=== PATIENT | male | born 1960 | race Caucasian/White ===

== ENCOUNTER 2021-01-06 02:23 | Outpatient (CLI) | payer OTHER, MEDICAID, SELFPAY ==
--- NOTE | 2021-01-06 | DI.US_ITS ---
EXAM: US ABDOMEN CLINICAL HISTORY: ABD PAIN,R10.9 TECHNIQUE: Ultrasound abdomen performed using standard protocol. COMPARISON: No exams were available for comparison FINDINGS: ABDOMINAL AORTA AND IVC: Visualized portions normal caliber. PANCREAS: Normal where visualized. LIVER: Normal. Hepatopedal flow in the Portal Vein. The liver measures 15.9 cm in length. GALLBLADDER: No evidence of cholelithiasis. No evidence of wall thickening. No pericholecystic fluid identified. BILIARY SYSTEM: Common bile duct measures < 7 mm. No intrahepatic biliary ductal dilation. ARZOLA'S SIGN: Negative. KIDNEYS: Kidneys are symmetric in size. No evidence of renal calculi. No evidence of hydronephrosis. There is a 1.7 x 1.2 x 1.4 cm simple cyst in the inferior pole of the left kidney. No further workup is recommended. SPLEEN: Not enlarged. ASCITES: None seen. IMPRESSION: No acute abnormality. DATA REPOSITORY:
== END 2021-01-06 02:24 ==
LOC: DI 02:23
PROVIDERS: PCP Internal Medicine; Visit Provider Internal Medicine
DX: R10.9 Unspecified abdominal pain (principal)
CPT/HCPCS: 76700

== ENCOUNTER 2021-02-08 13:24 | Outpatient (CLI) | payer OTHER, MEDICAID, SELFPAY ==
--- NOTE | 2021-02-08 13:00 | DI.NM_ITS ---
EXAM: NM HEPATOBILIARY CCK GRP CLINICAL HISTORY: NAUSEA, VOMITING, R11.2. TECHNIQUE: Injected dose: 4.9 mCi Tc-99 mebrofenin Initial dynamic images: 60 minutes Post-Gallbladder fillin.2 mcg CCK infusion as according to protocol. Addition images: According to protocol. COMPARISON: NM MPI RESTING AND STRESS from 07/04/2015 FINDINGS: Normal hepatic transit time. Prompt excretion into the small bowel. Prompt excretion into the gallbladder. The gallbladder ejection fraction was calculated at 79 %. (N ormal greater than 40 %). IMPRESSION: 1. Normal CCK HIDA scan. [facility] guidelines: Gallbladder visualization should be present by 3 hours. Delayed yzegeac-er-mmbyk gonzalez sit beyond 60 min raises the suspicion for partial common bile duct (CBD) obstruction. Gallbladder ejection fraction <35% has a good correlation with acalculous disease (i.e., chronic acal culous cholecystitis, cystic duct syndrome, sphincter of Oddi disease).
== END 2021-02-08 13:44 ==
PROVIDERS: PCP Internal Medicine; Visit Provider Surgery
DX: R11.2 Nausea with vomiting, unspecified (principal)
CPT/HCPCS: 78227

== ENCOUNTER 2021-06-06 20:01 | Emergency (ER) | payer OTHER, MEDICAID, SELFPAY ==
--- NOTE | 2021-06-06 20:00 | RT.EKG_ITS ---
APPROVED REPORT Exam: Resting ECG Reason for Exam: chest pain Patient Location: E HR:75 bpm ECG Measurements Heart Rate 75 AXIS NE 193 P 73 QRSd 100 QRS 100 QT 371 T 36 QTc 415 Conclusion Sinus rhythm...normal P axis, V-rate 60- 99 Probable left atrial enlargement...P >50mS, <-0.10mV V1 Right axis deviation...QRS axis ( 22,821)
[2021-06-06 20:05] VITALS: BP 153/93; PULSE 79; RESP 23; TEMP 36.5; O2SAT 97
[2021-06-06 20:10] VITALS: RESP 16
--- NOTE | 2021-06-06 20:37 | DI.CT_ITS ---
Exam(s) CT CHEST PE CTA EXAM: CT CHEST PE CTA CLINICAL HISTORY: chest pain rt, cough. TECHNIQUE: Imaging Protocol: Axial CT angiography was performed with multi-slice acquisition and mu lti-planar and/or 3D reconstructions. CONTRAST MATERIAL: Intravenous: Omnipaque 350 Contrast volume:100 mL COMPARISON: CT ABD PELVIS WO CONTRAST from 12/13/[address] ABD/PELVIS W/ CONTRAST from 09/26/2020 FINDINGS: Tracheobronchial tree: Patent where visualized. Pulmonary parenchyma: No consolidation or dominant measurable mass. Mild paraseptal emphysematous jean carlos nges are present. There are multiple calcified granulomas scattered throughout both lungs. Pulmonary Arteries: No evidence of filling defect to suggest pulmonary emboli. Mediastinum and Romelia: Mildly enlarged lymph nodes are seen in the mediastinum. Visualized thyroid gland: Unremarkable. Pleura: No effusion or pneumothorax. Heart: The heart is not dilated. Coronary artery calcifications are present. No pericardial effusion . Aorta: Thoracic aorta non-dilated. Mild atherosclerosis. No evidence of dissection. Upper abdomen: Unremarkable. Soft tissues: Unremarkable. Bones: Normal.Sternal wires are in place. IMPRESSION: No evidence of pulmonary embolism, thoracic aortic dissection or aneurysm. RADIATION DOSE DELIVERED: 450.37mGy.cm Total DLP DATA REPOSITORY: All CT scans at this facility are submitted to the National Radiology Data Registry (NRDR) Dose Index Registry (DIR) with the [employer] (ACR). RADIATION OPTIMIZATION: All CT scans at this facility use at least one of these dose optimization te chniques: automated exposure control; mA and/or kV adjustment per patient size (includes targeted exa ms where dose is matched to clinical indication); or iterative reconstruction.
[2021-06-06] MEDS: FAMOTIDINE 20 MG/50 ML BAG 200 MG IVPB (20:47)
[2021-06-06 20:50] LABS: Abs Immature Grans 0.04 10^3/uL (0.0-0.06); Absolute Basophil Count 0.12 10^3/uL (0.0-0.2); Absolute Eosinophil Count 1.54 10^3/uL (0.0-0.7); Absolute Lymphocyte Count 3.34 10^3/uL (1.2-3.4); Absolute Monocyte Count 0.85 10^3/uL (0.1-0.8); Basophils % 1.1; Eosinophils % 13.6; HCT 50.4 % (40.0-50.0); HGB 17.2 g/dL (13.5-17.5); Immature Grans % 0.4; Lymphocytes % 29.6; MCH 32.5 pg (27.0-33.0); MCHC 34.1 % (32.0-36.0); MCV 95.1 fL (80-95); MPV 8.8 fL (8.0-11.0); Monocytes % 7.5; Neutrophils % 47.8; Nucleated RBC 0 %; Platelet Count 335 10^3/uL (130-400); RDW 12.6 % (11.8-14.1); RDW-SD 44.1 fL
[2021-06-06 21:00] VITALS: BP 132/85; PULSE 72; RESP 26; O2SAT 92
[2021-06-06 21:03] LABS: ALT 28 U/L (16-63); AST 14 U/L (15-37); Albumin 3.7 g/dL (3.4-5.0); Alkaline Phosphatase 84 U/L (46-116); Anion Gap 6.5 mmol/L (3-11); BUN 11 mg/dL (7-18); Bilirubin, Total 0.9 mg/dL (0.2-1.0); CO2 32.5 mmol/L (21.0-32.0); Calcium 10.1 mg/dL (8.5-10.1); Chloride 105 mmol/L (98-107); Glucose 124 mg/dL (74-106); Magnesium 1.7 mg/dL (1.8-2.4); Potassium 3.9 mmol/L (3.5-5.1); Sodium 144 mmol/L (136-145); Total Protein 6.8 g/dL (6.4-8.2); Troponin I < 0.05 ng/mL (<0.06)
--- NOTE | 2021-06-06 21:07 | ED.GENADUL_ITS ---
Discharge Plan Disposition Patient Disposition: HOME Condition: Stable Discharge Details Clinical Impression: Acid reflux, Cough, Chest pain Primary Care Provider: Mary Linton ED Provider: Nash Stoddard Home Meds and New Rx's Prescriptions: New albuterol sulfate 90 mcg/actuation HFA aerosol inhaler 2 puff inhalation Q6H PRN (Reason: shortness of breath or wheezing) Qty: 8.5 RF: 1 famotidine [Pepcid] 20 mg tablet 20 mg PO BID Qty: 60 RF: 1 Continued nitroglycerin 0.4 MG tablet, sublingual 0.4 mg Sublingual PRN Qty: 1 RF: 2 (DME) lancets 1 EACH misc 1 ea Miscellaneous BID Qty: 100 RF: 3 (DME) blood sugar diagnostic [OneTouch Ultra Test] 1 EACH strip 1 ea Miscellaneous BID Qty: 100 RF: 0 atorvastatin 80 MG tablet 80 mg PO DAILY Qty: 90 RF: 3 aspirin 81 MG tablet,delayed release (DR/EC) 81 mg PO DAILY Qty: 90 RF: 3 metoprolol tartrate 25 MG tablet 25 mg PO DAILY Qty: 90 RF: 3 glimepiride 4 MG tablet 4 mg PO DAILY Qty: 90 RF: 0 Levemir FlexTouch U-100 Insuln 100 unit/mL (3 mL) insulin pen 28 unit SUBCUT BID RF: 0 Ozempic 0.25 mg or 0.5 mg(2 mg/1.5 mL) pen injector 0.5 mg SUBCUT QWEEK RF: 0 Discontinued ranitidine HCl 150 MG tablet 150 mg PO BID Qty: 180 RF: 3 metformin 1,000 MG tablet 500 mg PO DAILY RF: 0 Discharge Instructions Instructions: Chest Pain (ED), How to Stop Smoking (ED), GERD (Gastroesophageal Reflux Disease) (ED), Wheezing (ED) Additional Instructions: You are being started on a new antiacid called Pepcid. Please take as prescribed. Use albuterol inhaler as prescribed for wheezing or shortness of breath. Please follow-up with your primary care physician. Call tomorrow. Diagnostic testing today including EKG and cardiac enzymes did NOT reveal that you are having a heart attack tonight but further outpatient diagnostic testing may be necessary including stress test. Discuss this with your primary care doctor or system support developer tomorrow. Please followup with a global cmo or general surgery. Additional outpatient diagnostic testing may be necessary for treatment of chronic reflux disease. Please follow-up with pulmonology if cough persists more than this week and despite albuterol use. You need to stop smoking. Talk to your primary care physician about therapies that may help with smoking cessation. Return to the ER immediately for any worsening or new concerning symptoms. Referrals: [facility] [Provider Group] Mary Linton MD [Primary Care Provider] - Medical Decision Making 2112??61-year-old male most medical problems including history of coronary artery disease status post CABG and stenting, GERD, hiatal hernia, tobacco use disorder, here with right-sided chest pain over the past 1 week, associated cough with some what sounds like choking episode with concern for possible aspiration, also with recent right lower extremity edema. Patient was seen at outside hospital on multiple visits this past week. Will attempt obtain outside hospital records. Patient apparently had chest x-ray that was nondiagnostic. Plan to get CT of the chest to assess for aspiration pneumonia versus pneumonitis versus pulmonary embolism. Considered ACS but presentation is not consistent with this. A screening ECG was reviewed interpreted by me: Sinus rhythm 75 bpm, probable left atrial enlargement, right axis deviation, no STEMI, please see report. Initial troponin negative. Will plan on checking a delta troponin. I suspect reflux esaphagitis and acid reflux is contributing to presentation. Will give pepcid IV. 2253 --CT of the chest was reviewed and interpreted by radiology:FINDINGS: Pulmonary arteries: Normal. No pulmonary emboli. Aorta: Mild atherosclerotic change present in the vasculature. Lungs: Unremarkable. No consolidation. No masses. Pleural spaces: Unremarkable. No pneumothorax. No pleural effusion. Heart: Unremarkable. No cardiomegaly. No pericardial effusion. Lymph nodes: There is mild mediastinal adenopathy. Bones/joints: Status post median sternotomy. Soft tissues: Scattered bilateral calcified lung granulomata noted. IMPRESSION: No evidence for pulmonary embolus. Patient was given albuterol neb and reassessed and noted improved symptoms. He notes that he is currently out of his albuterol inhaler treatment will provide inhaler and spacer today. I obtained and reviewed outside hospital medical records from [facility] recent ED visit there he was seen for right leg swelling, he had negative D- dimer and was low risk by Wells criteria did not have further diagnostic imaging. He was also seen on 06/02/21 for cough and there is note that acid reflux may be contributing to his cough. He was trialed on pantoprazole which patient stated resulted in foul-smelling belching and he discontinued. 1200 -- Delta trop neg. I do believe reflux is contributing to his symptoms. I will prescribe Pepcid and have him follow-up with gastroenterology or general surgery. I will also refer him to pulmonology given chronic smoking and now persistent cough with con cern for potential cough variant asthma. All results were discussed with the patient. Disposition decision was made weighing the risks and benefits of hospitalization versus outpatient treatment, the risk for further decompensation, and the patient's wishes. The patient was stable and requested discharge. Prior to discharge, my usual and customary return precautions were reviewed with the patient - this included follow-up instructions and reason to return to the emergency department if condition worsens, does not improve as expected, or other new concerns arise. Medical Records Medical records reviewed: Yes I reviewed the patient's medical records. Lab Data Lab results reviewed: Yes I reviewed the patient's lab results. Labs: Laboratory Tests Range/Units 06/06/21 06/06/21 06/06/21 20:15 20:15 23:37 WBC (4.4-10.8) 10^3/uL 11.30 H RBC (4.36-5.78) 10^6/uL 5.30 Hgb (13.5-17.5) g/dL 17.2 Hct (40.0-50.0) % 50.4 H MCV (80-95) fL 95.1 H MCH (27.0-33.0) pg 32.5 MCHC (32.0-36.0) % 34.1 RDW (11.8-14.1) % 12.6 Plt Count (130-400) 10^3/uL 335 MPV (8.0-11.0) fL 8.8 Immature Gran % 0.4 Neutrophils % 47.8 Lymphocytes % 29.6 Monocytes % 7.5 Eosinophils % 13.6 Basophils % 1.1 Nucleated RBC % % 0 Absolute Neutrophils (1.2-6.7) 10^3/uL 5.40 Absolute Lymphocytes (1.2-3.4) 10^3/uL 3.34 Absolute Monocytes (0.1-0.8) 10^3/uL 0.85 H Absolute Eosinophils (0.0-0.7) 10^3/uL 1.54 H Absolute Basophils (0.0-0.2) 10^3/uL 0.12 Sodium (136-145) mmol/L 144 Potassium (3.5-5.1) mmol/L 3.9 Chloride (98-107) mmol/L 105 Carbon Dioxide (21.0-32.0) mmol/L 32.5 H Anion Gap (3-11) mmol/L 6.5 BUN (7-18) mg/dL 11 Creatinine (0.70-1.30) mg/dL 1.0 Estimated GFR/1.73 m2 (mL/min/1.73m2) >= 60.00 Glucose (74-106) mg/dL 124 H Calcium (8.5-10.1) mg/dL 10.1 Magnesium (1.8-2.4) mg/dL 1.7 L Total Bilirubin (0.2-1.0) mg/dL 0.9 AST (15-37) U/L 14 L ALT (16-63) U/L 28 Alkaline Phosphatase (46-116) U/L 84 Troponin I (<0.06) ng/mL < 0.05 < 0.05 Total Protein (6.4-8.2) g/dL 6.8 Albumin (3.4-5.0) g/dL 3.7 HPI General Mode of arrival: ambulatory . Date/Time Provider Initiated Documentation: 06/06/21 20:09 . Limitations to Documentation: no limitations . Information obtained by: patient . HPI Narrative: 61-year-old male with multiple medical problems including history of diabetes, hyperlipidemia, tobacco use disorder, GERD, coronary artery disease status post CABG and subsequent stent, presents with chief complaint of chest pain. Patient notes right-sided pleuritic chest pain over the past 1 week. Pain is intermittent and last approximately 45-minute, he experiences about 4-5 episodes daily. Pain is described as sharp. Pain worse with coughing episodes. He notes he has been coughing fairly persistently over the past 1 week. He notes some reflux and choking episodes. He does have a history of hiatal hernia. He has been seen multiple times at [facility] emergency department over the past week. He apparently had diagnostics including a chest x-ray that was unremarkable. Patient denies associated fever. He has had Covid immunization and was tested negative at [facility] this week. Related Data Home Medications Medication Instructions Recorded Confirmed nitroglycerin 0.4 mg SUBLINGUAL PRN #1 bottle 01/23/17 06/06/21 lancets #100 ea 03/05/17 blood sugar diagnostic [OneTouch #100 strip 07/02/17 Ultra Test] aspirin 81 mg PO DAILY #90 tab 09/03/17 06/06/21 atorvastatin 80 mg PO DAILY #90 tab-cap 09/03/17 06/06/21 metoprolol tartrate 25 mg PO DAILY #90 tab-cap 09/03/17 06/06/21 glimepiride 4 mg PO DAILY #90 tab-cap 05/20/18 06/06/21 Levemir FlexTouch U-100 Insuln 28 unit SUBCUT BID 06/06/21 06/06/21 Ozempic 0.5 mg SUBCUT QWEEK 06/06/21 06/06/21 albuterol sulfate 2 puff INHALATION Q6H PRN #8.5 g 06/06/21 famotidine [Pepcid] 20 mg PO BID #60 tab 06/06/21 Previous Rx's Medication Instructions Recorded aspirin 81 mg PO DAILY #90 tab 09/03/17 atorvastatin 80 mg PO DAILY #90 tab-cap 09/03/17 metoprolol tartrate 25 mg PO DAILY #90 tab-cap 09/03/17 glimepiride 4 mg PO DAILY #90 tab-cap 05/20/18 albuterol sulfate 2 puff INHALATION Q6H PRN #8.5 g 06/06/21 famotidine [Pepcid] 20 mg PO BID #60 tab 06/06/21 Allergies Allergy/AdvReac Type Severity Reaction Status Date / Time Penicillins Allergy RASH Unverified 02/10/18 06:57 lorazepam [From Ativan] AdvReac Severe SEVERE Unverified 02/10/18 06:57 AGITATION acetaminophen [From Tylenol] AdvReac Unknown SICK TO Unverified 02/10/18 06:57 STOMACH lactose AdvReac Unknown Unverified 02/10/18 06:57 General Stated Complaint: Chest Pain SHAUN: 2 Review of Systems All systems reviewed & are unremarkable except as noted in HPI and below Constitutional Constitutional: Denies fever(s) Cardiovascular Cardiovascular: Reports chest pain and Reports leg edema (Right leg over the past 1 to 2-week) Respiratory Respiratory: Reports as per HPI and Reports cough Gastrointestinal Gastrointestinal: Denies abdominal pain [facility] Medical History (Updated 06/06/21 @ 23:14 by Nash Stoddard MD) Cor athrscl-uns vessel (06/02/13) CABG 3v 09/15/12 [facility] cardiology [facility]CA 08-21-13 GERD (gastroesophageal reflux disease) (05/20/15) Pure hypercholesterolemia (09/27/15) TBI (traumatic brain injury) Tobacco abuse disorder (03/27/16) Tobacco use disorder Type II diabetes mellitus (01/05/14) Surgical History (Updated 06/06/21 @ 21:11 by Nash Stoddard MD) Aortocoronary bypass status (09/25/12) Coronary Artery Bypass Grafting (09/01/12) Coronary Stent (08/21/13) [facility] Extraction of cataract (02/10/18) left eye cataract removal with intraocular lens implant. Dr Melgoza Testicle removal, left Tonsillectomy and adenoidectomy (~1973) Family History Mother Essential hypertension Personal history of malignant neoplasm Heart disease Father Personal history of malignant neoplasm Heart disease Brother Substance abuse Social History Smoking/Tobacco Use Status: Current every day Smoking risk assessment performed?: Yes Alcohol Intake: never Drug use: Never Substance use type: does not use Do you feel safe at home: Yes Do you feel safe in your relationship?: Yes Exam Const General: cooperative and no acute distress HENMT Mouth: moist mucous membranes Throat: posterior oropharynx normal Eyes Conjunctivae: normal conjunctivae Sclera: normal sclerae EOM: EOM intact bilaterally Neck Neck: trachea midline and supple Resp Auscultation: clear to auscultation bilaterally, no rales, no rhonchi and wheezes right lower (Subtle) Cardio Jugular venous pressure: no JVD Rate: regular rate and not tachycardic Rhythm: regular rhythm GI Palpation: soft, not firm, no guarding, no masses, not rigid and nontender Skin General skin exam: no rashes or lesions noted Neuro General: patient alert, patient awake, patient oriented x3 and tone normal Extrem General: edema (Questionable nonpitting edema right greater than left distal LEs) Psych Appearance: grossly normal Mental Status: mental status grossly normal Speech and Movement: speech and movement normal Course Vital Signs Vital signs: Vital Signs Temperature 36.5 C 06/06/21 20:05 Pulse 79 06/06/21 20:05 Respiratory Rate 23 06/06/21 20:05 Blood Pressure 153/93 H 06/06/21 20:05 Pulse Oximetry 97 06/06/21 20:05 Temperature 36.5 C 06/06/21 20:05 Temperature Source Skin 06/06/21 20:05 Pulse 79 06/06/21 20:05 Respiratory Rate 16 06/06/21 20:10 Respiratory Effort 06/06/21 20:10 Respiratory Depth Normal 06/06/21 20:10 Respiratory Pattern Normal 06/06/21 20:10 Blood Pressure 153/93 H 06/06/21 20:05 Blood Pressure Position Sitting 06/06/21 20:05 Pulse Oximetry 97 06/06/21 20:05 Oxygen Delivery Method Room Air 06/06/21 20:05 Oxygen Flow Rate 0 06/06/21 20:05 Pain Level 5 06/06/21 20:05 Lab/Test Results Lab/Test Results: Laboratory Tests Range/Units 06/06/21 06/06/21 20:15 20:15 WBC (4.4-10.8) 10^3/uL 11.30 H RBC (4.36-5.78) 10^6/uL 5.30 Hgb (13.5-17.5) g/dL 17.2 Hct (40.0-50.0) % 50.4 H MCV (80-95) fL 95.1 H MCH (27.0-33.0) pg 32.5 MCHC (32.0-36.0) % 34.1 RDW (11.8-14.1) % 12.6 Plt Count (130-400) 10^3/uL 335 MPV (8.0-11.0) fL 8.8 Immature Gran % 0.4 Neutrophils % 47.8 Lymphocytes % 29.6 Monocytes % 7.5 Eosinophils % 13.6 Basophils % 1.1 Nucleated RBC % % 0 Absolute Neutrophils (1.2-6.7) 10^3/uL 5.40 Absolute Lymphocytes (1.2-3.4) 10^3/uL 3.34 Absolute Monocytes (0.1-0.8) 10^3/uL 0.85 H Absolute Eosinophils (0.0-0.7) 10^3/uL 1.54 H Absolute Basophils (0.0-0.2) 10^3/uL 0.12 Sodium (136-145) mmol/L 144 Potassium (3.5-5.1) mmol/L 3.9 Chloride (98-107) mmol/L 105 Carbon Dioxide (21.0-32.0) mmol/L 32.5 H Anion Gap (3-11) mmol/L 6.5 BUN (7-18) mg/dL 11 Creatinine (0.70-1.30) mg/dL 1.0 Estimated GFR/1.73 m2 (mL/min/1.73m2) >= 60.00 Glucose (74-106) mg/dL 124 H Calcium (8.5-10.1) mg/dL 10.1 Magnesium (1.8-2.4) mg/dL 1.7 L Total Bilirubin (0.2-1.0) mg/dL 0.9 AST (15-37) U/L 14 L ALT (16-63) U/L 28 Alkaline Phosphatase (46-116) U/L 84 Troponin I (<0.06) ng/mL < 0.05 Total Protein (6.4-8.2) g/dL 6.8 Albumin (3.4-5.0) g/dL 3.7
[2021-06-06] MEDS: Omnipaque 350 MG/ML 100 ML BTL IV (21:17)
[2021-06-06] MEDS: Normal Saline - Diluent 50 ML VIAL IV (21:18)
--- NOTE | 2021-06-06 22:18 | DI.VRAD_ITS ---
PROCEDURE INFORMATION: Exam: CTA Chest With Contrast Exam date and time: 06/06/2021 9:19 PM Age: 61 years old Clinical indication: Other: Chest pain RT, cough; Prior surgery; Surgery date: 6+ months; Surgery type: Chest and neck surgery TECHNIQUE: Imaging protocol: Computed tomographic angiography of the chest with contrast. 3D rendering (Not supervised by radiologist): MIP and/or 3D reconstructed images were created by the technologist. Radiation optimization: All CT scans at this facility use at least one of these dose optimization techniques: automated exposure control; mA and/or kV adjustment per patient size (includes targeted exams where dose is matched to clinical indication); or iterative reconstruction. Contrast material: OMIPAQUE 350; Contrast volume: 100 ml; Contrast route: INTRAVENOUS (IV); COMPARISON: CT ABD/PELVIS W/ CONTRAST 09/26/2020 6:16 PM FINDINGS: Pulmonary arteries: Normal. No pulmonary emboli. Aorta: Mild atherosclerotic change present in the vasculature. Lungs: Unremarkable. No consolidation. No masses. Pleural spaces: Unremarkable. No pneumothorax. No pleural effusion. Heart: Unremarkable. No cardiomegaly. No pericardial effusion. Lymph nodes: There is mild mediastinal adenopathy. Bones/joints: Status post median sternotomy. Soft tissues: Scattered bilateral calcified lung granulomata noted. IMPRESSION: No evidence for pulmonary embolus. Dictated and Authenticated by: Didi Barreto MD. Ordering:RAEGAN Cao MD
[2021-06-06 22:19] VITALS: RESP 4
[2021-06-06] MEDS: Albuterol 2.5 MG/3 ML INH SOLN VIAL UPD (22:19)
--- NOTE | 2021-06-06 22:42 | NUR.NOTE ---
Pain free at this time. Awaiting repeat trop
[2021-06-06] MEDS: Albuterol HFA 8 GM 60 PUFF INH IH (23:22)
[2021-06-06] MEDS: Inhaler, Assist Device 1 EACH MC (23:22)
[2021-06-06 23:58] LABS: Troponin I < 0.05 ng/mL (<0.06)
[2021-06-07 00:22] VITALS: BP 119/83; PULSE 79; RESP 14; O2SAT 94
== END 2021-06-07 00:12 | disposition home or self-care (01) ==
PROVIDERS: Emergency Provider Student in an Organized Health Care Education/Training Program; PCP Internal Medicine
DX: R07.89 Other chest pain (principal); K21.9 Gastro-esophageal reflux disease without esophagitis; R05 Cough; F17.210 Nicotine dependence, cigarettes, uncomplicated
CPT/HCPCS: 36415; 71275; 80053; 93005; 94640; 96365; 99285; 83735; 84484; 85025; 93010; J3490; J7613

== ENCOUNTER 2021-06-18 09:55 | Emergency (ER) | payer OTHER, MEDICAID, SELFPAY ==
--- NOTE | 2021-06-18 09:45 | RT.EKG_ITS ---
APPROVED REPORT Exam: Resting ECG Reason for Exam: chest discomfort Patient Location: E HR:69 bpm ECG Measurements Heart Rate 69 AXIS IN 208 P 54 QRSd 104 QRS 95 QT 409 T 63 QTc 438 Conclusion Sinus rhythm...normal P axis, V-rate 60- 99 Probable left atrial enlargement...P >50mS, <-0.10mV V1 Right axis deviation...QRS axis ( 91,269). B/L distal pulses intact. I have reviewed and interpreted ECG and agree with software generated interpretation.
--- NOTE | 2021-06-18 10:02 | ED.GENADUL_ITS ---
Discharge Plan Disposition Patient Disposition: HOME Condition: Stable Discharge Details Clinical Impression: Chest pain, GERD (gastroesophageal reflux disease) Primary Care Provider: Mary Linton ED Provider: Danielle Barrow Home Meds and New Rx's Prescriptions: New sucralfate [Carafate] 100 mg/mL suspension 10 ml PO QACHS Qty: 420 RF: 0 Continued nitroglycerin 0.4 MG tablet, sublingual 0.4 mg Sublingual PRN Qty: 1 RF: 2 (DME) lancets 1 EACH misc 1 ea Miscellaneous BID Qty: 100 RF: 3 (DME) blood sugar diagnostic [OneTouch Ultra Test] 1 EACH strip 1 ea Miscellaneous BID Qty: 100 RF: 0 atorvastatin 80 MG tablet 80 mg PO DAILY Qty: 90 RF: 3 aspirin 81 MG tablet,delayed release (DR/EC) 81 mg PO DAILY Qty: 90 RF: 3 metoprolol tartrate 25 MG tablet 25 mg PO DAILY Qty: 90 RF: 3 glimepiride 4 MG tablet 4 mg PO DAILY Qty: 90 RF: 0 Levemir FlexTouch U-100 Insuln 100 unit/mL (3 mL) insulin pen 28 unit SUBCUT BID RF: 0 Ozempic 0.25 mg or 0.5 mg(2 mg/1.5 mL) pen injector 0.5 mg SUBCUT QWEEK RF: 0 albuterol sulfate 90 mcg/actuation HFA aerosol inhaler 2 puff inhalation Q6H PRN (Reason: shortness of breath or wheezing) Qty: 8.5 RF: 1 famotidine [Pepcid] 20 mg tablet 20 mg PO BID Qty: 60 RF: 1 Discharge Instructions Instructions: Chest Pain (ED), GERD (Gastroesophageal Reflux Disease) (ED) Additional Instructions: Labs and imaging are reassuring today. There does not appear to be any new or process going on. However, I am concerned that your acid reflux is worsening. You have been prescribed Carafate which will be taken before meals and before bedtime. I have also asked her care management team to help arrange for your nuclear stress test as previously ordered by your apprentice painter brush. Referral has also been sent to general surgery to discuss continued management and evaluation of your acid reflux as well as foreign body sensation after eating. Referral for local primary care is also been sent. If you develop any new or worsening symptoms please seek care urgently once again. Referrals: Mary Linton MD [Primary Care Provider] - Discharge Data Discharge Date/Time-TO BE ENTERED AT DEPARTURE: 06/18/21 13:17 Medical Decision Making Patient is a 61-year-old male presenting today with chief complaint of chest discomfort. Past medical history is pertinent for ACS with bypass in 2012, hypercholesterolemia, smoker, type 2 diabetes, TBI, HOLLIS, anxiety. Patient has had GERD for the past several months. He reports that he has been being seen between here as well as [facility] emergency department and his primary care physician. He tried multiple medications. Reports that he often has coughing fits and is concerned for potential aspiration. Denies any recent fevers or chills. Took last dose of antibiotics for presumed aspiration pneumonia today. He reports that he has difficulty swallowing secondary to foreign body sensation after eating. He has been evaluated as of yet by GI or general surgery. Denies any having EGD. States that frequently his pills obstr ucting his throat. He is not currently endorsing symptoms. States this morning he had a cup of decaf coffee and while driving began having increased acid reflux. States that this feels different than when he has had ACS historically. No pain radiating into his back. Denies feeling short of breath. Also reports that his glucose was over 600 this morning On exam, patient appears anxious. He appears nontoxic. Vital signs are stable. Glucose done at bedside is 192. He does report that this was taken with a new machine, I did advise rechecking if he gets a highly unusual number for him. His lungs are clear, no murmurs rubs or gallops appreciated on exam. Abdomen is benign. No lower extremity edema or calf tenderness. Patient's history is most concerning for increased acid reflux. This is likely from his being n.p.o. and having coffee. Patient does report that he is cut down from 20 cups to 2 cups/day. Is also working on cutting back on smoking. However, with the patient's past medical history of ACS I do feel that evaluation EKG and troponin would be appropriate. Patient reports he does see Dr. Garrison, his apprentice painter brush, in [place] and is supposed to have upcoming nuclear stress testing. We did discuss the medications that he tried thus far for symptomatic management of his acid reflux. Will give Protonix and Carafate. Will obtain repeat chest x-ray. He did have recent CT for PE here. He also reports that between he was seen here last, on 06/07/2021, and today he had another CT for PE protocol at [facility]. We will hold off on any CT imaging at this time. Patient reports his symptoms have resolved after Protonix and Carafate. Labs reviewed. Leukocytosis a white count of 12.6, from 11.3 weeks ago. CMP significant for glucose of 208, patient reports he is working with his primary care to improve his glucose although he still has been very labile recently. Troponin within normal limits. Given the length of symptoms been ongoing, do not feel that repeat troponin is warranted time. I do feel that evaluation with general surgery is appropriate. We will continue the patient on Carafate. Patient has been referred for outpatient nuclear stres s test by cardiology, I have asked care management to look into this this patient reports he has not heard yet from the scheduling group. This would also be helpful as he may need to undergo EGD with his severe GERD, foreign body sensation after eating after pill intake. Will obtain COVID test in preparation for stress test. Patient states that he does not have local PCP, would like to move all care to the [facility]. Patient and I discussed return precautions. Encouraged smoking cessation. He is cutting back coffee. Will continue with carafate. Advised f/u with PCP in one week for reevaluation. All of his questions and concerns were addressed, he is in agreement with this plan. [facility] General Mode of arrival: ambulatory . Date/Time Provider Initiated Documentation: 06/18/21 10:02 . Limitations to Documentation: no limitations . Information obtained by: patient, RN notes reviewed and old records reviewed . History of Present Illness 61 year old M presents to the emergency department with the chief complaint of acid reflux, chest pain, described as moderate and similar to prior episodes, Quality is described as burning, and is localized to the chest. Patient reports no radiation. Patient started experiencing this unknown (has been waxing/waning for several months) and it has been intermittent. No relieving factors improve symptom(s), Eating worsens symptoms . Patient notes chest pain, cough and loss of appetite (reports he is concerned to eat secondary to FB sensation and GERD); denies fever/chills, nausea/vomiting, rash and shortness of breath. Patient did receive the following treatments prior to arrival, none Related Data Home Medications Medication Instructions Recorded Confirmed nitroglycerin 0.4 mg SUBLINGUAL PRN #1 bottle 01/23/17 06/06/21 lancets #100 ea 03/05/17 blood sugar diagnostic [OneTouch #100 strip 07/02/17 Ultra Test] aspirin 81 mg PO DAILY #90 tab 09/03/17 06/06/21 atorvastatin 80 mg PO DAILY #90 tab-cap 09/03/17 06/06/21 metoprolol tartrate 25 mg PO DAILY #90 tab-cap 09/03/17 06/06/21 glimepiride 4 mg PO DAILY #90 tab-cap 05/20/18 06/06/21 Levemir FlexTouch U-100 Insuln 28 unit SUBCUT BID 06/06/21 06/06/21 Ozempic 0.5 mg SUBCUT QWEEK 06/06/21 06/06/21 albuterol sulfate 2 puff INHALATION Q6H PRN #8.5 g 06/06/21 famotidine [Pepcid] 20 mg PO BID #60 tab 06/06/21 sucralfate [Carafate] 10 ml PO QACHS #420 ml 06/18/21 Previous Rx's Medication Instructions Recorded aspirin 81 mg PO DAILY #90 tab 09/03/17 atorvastatin 80 mg PO DAILY #90 tab-cap 09/03/17 metoprolol tartrate 25 mg PO DAILY #90 tab-cap 09/03/17 glimepiride 4 mg PO DAILY #90 tab-cap 05/20/18 albuterol sulfate 2 puff INHALATION Q6H PRN #8.5 g 06/06/21 famotidine [Pepcid] 20 mg PO BID #60 tab 06/06/21 sucralfate [Carafate] 10 ml PO QACHS #420 ml 06/18/21 Allergies Allergy/AdvReac Type Severity Reaction Status Date / Time Penicillins Allergy RASH Unverified 06/18/21 11:29 lorazepam [From Ativan] AdvReac Severe SEVERE Unverified 02/10/18 06:57 AGITATION acetaminophen [From Tylenol] AdvReac Unknown SICK TO Unverified 06/18/21 11:29 STOMACH lactose AdvReac Unknown Unverified 06/18/21 11:29 General SHAUN: 2 Review of Systems Constitutional Constitutional: Reports as per HPI, Denies chills, Denies fever(s), Denies headache(s), Denies lethargy and Reports poor appetite Eyes Eyes: Denies change in vision ENT Ears, Nose, Mouth, and Throat: Denies dizziness and Denies headache(s) Cardiovascular Cardiovascular: Reports as per HPI, Reports chest pain at rest (after eating), Denies chest pain with activity, Denies lightheadedness, Denies radiating jaw, neck or arm pain, Denies dyspnea and Denies dyspnea on exertion Respiratory Respiratory: Reports as per HPI, Denies chest congestion, Reports cough (reports cough after eating, states he has FB sensation after eating), Denies pain on inspiration, Denies pain with cough, Denies dyspnea, Denies dyspnea on exertion and Denies wheezing Gastrointestinal Gastrointestinal: Reports as per HPI, Denies abdominal pain, Denies diarrhea, Denies nausea and Denies vomiting Genitourinary Genitourinary: Denies system reviewed and no additional complaints, except as documented (denies change in urinary habits) Musculoskeletal Musculoskeletal: Reports as per HPI and Denies back pain Integumentary/Breasts Skin/Breast: Reports as per HPI and Denies rash Neurologic Neurologic: Reports as per HPI, Denies dizziness and Denies headache(s) Allergic/Immunologic Allergic/Immunologic: Denies wheezing [facility] Medical History (Updated 06/18/21 @ 12:40 by WILLIAM Grimes) Cor athrscl-uns vessel (06/02/13) CABG 3v 09/15/12 [facility] cardiology PTCA 08-21-13 GERD (gastroesophageal reflux disease) (05/20/15) Pure hypercholesterolemia (09/27/15) TBI (traumatic brain injury) Tobacco abuse disorder (03/27/16) Tobacco use disorder Type II diabetes mellitus (01/05/14) Surgical History Aortocoronary bypass status (09/25/12) Coronary Artery Bypass Grafting (09/01/12) Coronary Stent (08/21/13) [facility] Extraction of cataract (02/10/18) left eye cataract removal with intraocular lens implant. Dr Melgoza Testicle removal, left Tonsillectomy and adenoidectomy (~1974) Family History Mother Essential hypertension Personal history of malignant neoplasm Heart disease Father Personal history of malignant neoplasm Heart disease Brother Substance abuse Social History Smoking/Tobacco Use Status: Current every day Smoking risk assessment performed?: Yes Alcohol Intake: never Drug use: Never Substance use type: does not use Do you feel safe at home: Yes Do you feel safe in your relationship?: Yes Exam Const General: cooperative, healthy appearing, comfortable, no acute distress and well developed Nutritional Appearance: average body habitus and well nourished Orientation: alert, awake and oriented x3 HENMT Head: normal to inspection Ears: hearing grossly normal bilaterally Mouth: moist mucous membranes Throat: posterior oropharynx normal Chest Chest: normal inspection of the chest, normal palpation of entire chest wall and no crepitus Resp Effort & Inspection: normal respiratory effort, able to speak in complete sentences and no respiratory distress Auscultation: clear to auscultation bilaterally, no rales, no rhonchi and no wheezes Cardio Rate: regular rate Rhythm: regular rhythm Heart Sounds: S1 normal and S2 normal GI Inspection: normal to inspection, no edema and non-distended Palpation: soft, no hepatosplenomegaly, not firm, no guarding, not rigid and nontender Auscultation: normal bowel sounds Skin General skin exam: no rashes or lesions noted Trauma: no lacerations or abrasions Neuro General: patient alert, patient awake and patient oriented x3 Cognition: normal cognition Speech: speech normal Gait: normal gait Extrem General: normal to inspection, capillary refill normal, no pedal edema, no calf tenderness and normal gait Psych Appearance: grossly normal and well kempt Mental Status: mental status grossly normal Speech and Movement: speech and movement normal
[2021-06-18 10:08] VITALS: BP 139/68; PULSE 72; RESP 16; TEMP 36.5; O2SAT 97
--- NOTE | 2021-06-18 10:15 | DI.RAD_ITS ---
Exam(s) XR CHEST 2V PA LATERAL EXAM: XR CHEST 2V PA LATERAL CLINICAL HISTORY: CP, cough. TECHNIQUE: 2D digital imaging was performed. COMPARISON: CR CHEST 2 VIEWS PA,LAT from 09/11/2012 FINDINGS: There are sternotomy wires and evidence of CABG. Heart size normal mediastinum is not widened. There are no infiltrates nor pleural effusions nor pulmonary edema. Small granulomas in the right valeriano ng are again noted. A few also seen in the left lung. These are not new. No obvious hilar adenopat hy. IMPRESSION: No acute pulmonary findings. Sternotomy. CABG. Normal heart size. No pulmonary edema DATA REPOSITORY: RADIATION DOSE DELIVERED:
[2021-06-18 10:31] LABS: Abs Immature Grans 0.12 10^3/uL (0.0-0.06); Absolute Basophil Count 0.13 10^3/uL (0.0-0.2); Absolute Monocyte Count 1.01 10^3/uL (0.1-0.8); Absolute Neutrophil Count 6.44 10^3/uL (1.2-6.7); Eosinophils % 9.5; HCT 49.5 % (40.0-50.0); Lymphocytes % 29.4; MCH 32.2 pg (27.0-33.0); MCHC 34.3 % (32.0-36.0); MCV 93.8 fL (80-95); MPV 8.7 fL (8.0-11.0); Neutrophils % 51.1; Nucleated RBC 0 %; Platelet Count 436 10^3/uL (130-400); RBC 5.28 10^6/uL (4.36-5.78); RDW 12.3 % (11.8-14.1)
[2021-06-18 10:48] LABS: ALT 21 U/L (16-63); AST 8 U/L (15-37); Albumin 3.6 g/dL (3.4-5.0); Alkaline Phosphatase 81 U/L (46-116); Anion Gap 6.1 mmol/L (3-11); BUN 18 mg/dL (7-18); Bilirubin, Total 0.5 mg/dL (0.2-1.0); CO2 28.9 mmol/L (21.0-32.0); Calcium 9.4 mg/dL (8.5-10.1); Chloride 104 mmol/L (98-107); Glucose 208 mg/dL (74-106); Magnesium 2.3 mg/dL (1.8-2.4); Sodium 139 mmol/L (136-145); Total Protein 6.7 g/dL (6.4-8.2); Troponin I < 0.05 ng/mL (<0.06)
[2021-06-18] MEDS: Pantoprazole 40 MG VIAL IVP (10:54)
[2021-06-18] MEDS: Sucralfate 1 GM TAB PO (10:54)
--- NOTE | 2021-06-18 12:03 | DI.VRAD_ITS ---
PROCEDURE INFORMATION: Exam: XR Chest Exam date and time: 06/18/2021 10:20 AM Age: 61 years old Clinical indication: Patient HX: Chest pain, cough TECHNIQUE: Imaging protocol: XR of the chest. Views: 2 views. COMPARISON: CT CHEST PE CTA 06/06/2021 9:21 PM FINDINGS: Lungs: Scattered small calcified bilateral pulmonary granulomas. The lungs are otherwise clear. Normal inflation. Pleural spaces: Normal. Heart/Mediastinum: See Bones/joints finding. Vasculature: Normal pulmonary vessels and width of the vascular pedicle. Bones/joints: Median sternotomy wires and surgical clips compatible with prior CABG. Chronic mildly widened right AC joint having the appearance of old distal clavicle resection. IMPRESSION: Old diffuse pulmonary granulomatous disease. No acute abnormalities. Dictated and Authenticated by: Kenny Acevedo MD. Ordering:QUAN Santos MD
[2021-06-18] MEDS: Normal Saline 1,000 ML 500 ML IV (12:10)
--- NOTE | 2021-06-18 12:21 | NUR.NOTE ---
pt is pain free resting on is stretcher Nursing Note:
--- NOTE | 2021-06-20 12:44 | PDOC.ERCMPRO ---
- If Service Date Differs Date of service: 06/20/21 Time of Service: 12:44 Care Management Progress Note Dmearco is seen in the ED for chest pain and acid reflux. At the request of ED provider, CM coordinates a referral to [facility] for evaluation of GERD. SYMONE is also asked to expedite a nuclear stress test previously ordered by his rubber liner. CM attempts to reach Demarco by telephone to discuss the stress test but there is no answer. A message is left asking for a returned phone call. A chart review finds that the child caregiver at [facility] has also left messages for Demarco regarding scheduling a follow up appointment with his PCP.
[2021-06-20 16:32] LABS: COVID-19 RT-PCR UVMMC Result Negative (Negative)
--- NOTE | 2021-06-20 17:41 | NUR.NOTE ---
Nursing Note: Cielo Renae, RN called and left message for patient to call for lab results. Patient called while she was triaging a patient. With Cielo's permission I gave the patient his negative COVID results. Ashley Pitt
== END 2021-06-18 13:17 | disposition home or self-care (01) ==
PROVIDERS: Emergency Provider Physician Assistant; PCP Internal Medicine
DX: R07.9 Chest pain, unspecified (principal); K21.9 Gastro-esophageal reflux disease without esophagitis
CPT/HCPCS: 36416; 80053; 82962; 93005; 96361; 96374; 99284; U0003; 71046; 83735; 84484; 85025; 93010; 99283

== ENCOUNTER 2021-07-05 20:40 | Emergency (ER) | payer OTHER, SELFPAY ==
[2021-07-05 20:49] VITALS: BP 130/83; PULSE 78; RESP 18; TEMP 37.1; O2SAT 95
--- NOTE | 2021-07-05 20:59 | ED.GENADUL_ITS ---
Discharge Plan Disposition Patient Disposition: HOME Condition: Stable Discharge Details Clinical Impression: Cough, GERD (gastroesophageal reflux disease) Primary Care Provider: Unknown,Unknown ED Provider: Danielle Barrow Home Meds and New Rx's Prescriptions: Continued nitroglycerin 0.4 MG tablet, sublingual 0.4 mg Sublingual PRN Qty: 1 RF: 2 (DME) lancets 1 EACH misc 1 ea Miscellaneous BID Qty: 100 RF: 3 (DME) blood sugar diagnostic [OneTouch Ultra Test] 1 EACH strip 1 ea Miscellaneous BID Qty: 100 RF: 0 atorvastatin 80 MG tablet 80 mg PO DAILY Qty: 90 RF: 3 aspirin 81 MG tablet,delayed release (DR/EC) 81 mg PO DAILY Qty: 90 RF: 3 metoprolol tartrate 25 MG tablet 25 mg PO DAILY Qty: 90 RF: 3 glimepiride 4 MG tablet 4 mg PO DAILY Qty: 90 RF: 0 Levemir FlexTouch U-100 Insuln 100 unit/mL (3 mL) insulin pen 28 unit SUBCUT BID RF: 0 Ozempic 0.25 mg or 0.5 mg(2 mg/1.5 mL) pen injector 0.5 mg SUBCUT QWEEK RF: 0 albuterol sulfate 90 mcg/actuation HFA aerosol inhaler 2 puff inhalation Q6H PRN (Reason: shortness of breath or wheezing) Qty: 8.5 RF: 1 famotidine [Pepcid] 20 mg tablet 20 mg PO BID Qty: 60 RF: 1 sucralfate [Carafate] 100 mg/mL suspension 10 ml PO QACHS Qty: 420 RF: 0 Discharge Instructions Instructions: GERD (Gastroesophageal Reflux Disease) (ED), Acute Cough (ED) Additional Instructions: Please continue to encourage hydration. Please continue back on coffee and stop smoking. Please continue with your previously prescribed medication. Prior to bed tonight, you may use the lidocaine and Mylanta as given to you by nursing staff. If this works well for you, you may continue with Mylanta, this is available [id number]. Appropriate referrals are in place. However, I have asked our care management team to call you tomorrow to discuss these and ensure that these will happen in a timely manner. Please keep your upcoming appointment for your nuclear stress test. If you develop chest pain, shortness of breath or other new/worsening symptom please seek care urgently once again. Medical Decision Making Patient is a pleasant 61-year-old male presenting today with chief complaint of chronic difficulty swallowing and frequent coughing fits. He reports this been a problem for the past year and is progressively worsening. Patient's been seen multiple times [facility] as well as [facility]. He has had a swallow study. States that he was unable to tolerate the barium swallow. Patient has had imaging of his chest since being here. Patient does have a history of CAD, followed by cardiology and is scheduled for an outpatient nuclear stress test next week. Patient was evaluated by myself a few weeks ago. He states that since in the symptoms continue to worsen. He reports a 20 pound weight loss over the past 2 months secondary to difficulty swallowing, discomfort with swallowing and frequent coughing fits when trying to eat. He denies any chest pain at this time. No exertional symptoms. Symptoms seem to be worse at night, particular when laying back. States that this is making it difficult for him to sleep. Patient had been referred to general surgery but no appointment has yet been made. On exam, patient appears nontoxic. Lungs are clear, normal cardiac exam. No abnormalities noted in neck exam or HEENT. Abdomen is benign. I reviewed the patient's chart. Patient has had CT imaging here recently. He has had swallowing study at [facility]. His symptoms are not consistent with ACS at this time, no chest pain or exertional symptoms. He does have upcoming stress test. As he had multiple laboratory evaluations, multiple imaging using different modalities recently, I do not see any emergent need for reevaluation. Rather, the patient's primary concern for being here seems to be more out of frustration of being lost to follow-up. He states that he has made multiple phone calls recently to try and expedite his follow-up given his difficulty swallowing, discomfort, difficulty sleeping, weight loss. Patient states that he has done well with viscous lidocaine and Mylanta in the past. Will give him 1 home dose of this tonight and attempt to allow him to sleep. Encouraged to try sitting up to sleep as well. I have asked her care management team to call the patient directly tomorrow to discuss the difficulty with referrals. I did revaluate the [facility] network and patient does have a referral pending with their GI department as well. Primarily, I think the patient will benefit from an EGD which should be completed as soon as possible after he has had his nuclear stress test. Patient I discussed return precautions. All of his questions and concerns were addressed and he is in agreement this plan. I did encourage dietary changes, smoking cessation. HPI General Mode of arrival: ambulatory . Date/Time Provider Initiated Documentation: 07/05/21 20:59 . Limitations to Documentation: no limitations . Information obtained by: patient, RN notes reviewed and old records reviewed . History of Present Illness 61 year old M presents to the emergency department with the chief complaint of cough, frequent choking sensation, described as mild, with intensity rated at 1. Quality is described as other (discomfort in throat with swallowing), and is localized to the neck and chest. Patient started experiencing this year(s) and it has been constant. No relieving factors improve symptom(s), Eating worsens symptoms . Patient notes cough and loss of appetite; denies chest pain, fever/chills, nausea/vomiting and shortness of breath. Patient did receive the following treatments prior to arrival, none Related Data Home Medications Medication Instructions Recorded Confirmed nitroglycerin 0.4 mg SUBLINGUAL PRN #1 bottle 01/23/17 07/05/21 lancets #100 ea 03/05/17 blood sugar diagnostic [OneTouch #100 strip 07/02/17 Ultra Test] aspirin 81 mg PO DAILY #90 tab 09/03/17 06/06/21 atorvastatin 80 mg PO DAILY #90 tab-cap 09/03/17 07/05/21 metoprolol tartrate 25 mg PO DAILY #90 tab-cap 09/03/17 07/05/21 glimepiride 4 mg PO DAILY #90 tab-cap 05/20/18 07/05/21 Levemir FlexTouch U-100 Insuln 28 unit SUBCUT BID 06/06/21 07/05/21 Ozempic 0.5 mg SUBCUT QWEEK 06/06/21 07/05/21 albuterol sulfate 2 puff INHALATION Q6H PRN #8.5 g 06/06/21 07/05/21 famotidine [Pepcid] 20 mg PO BID #60 tab 06/06/21 07/05/21 sucralfate [Carafate] 10 ml PO QACHS #420 ml 06/18/21 07/05/21 Previous Rx's Medication Instructions Recorded aspirin 81 mg PO DAILY #90 tab 09/03/17 atorvastatin 80 mg PO DAILY #90 tab-cap 09/03/17 metoprolol tartrate 25 mg PO DAILY #90 tab-cap 09/03/17 glimepiride 4 mg PO DAILY #90 tab-cap 05/20/18 albuterol sulfate 2 puff INHALATION Q6H PRN #8.5 g 06/06/21 famotidine [Pepcid] 20 mg PO BID #60 tab 06/06/21 sucralfate [Carafate] 10 ml PO QACHS #420 ml 06/18/21 Allergies Allergy/AdvReac Type Severity Reaction Status Date / Time Penicillins Allergy RASH Unverified 07/05/21 20:55 lorazepam [From Ativan] AdvReac Severe SEVERE Unverified 07/05/21 20:55 AGITATION acetaminophen [From Tylenol] AdvReac Unknown SICK TO Unverified 06/18/21 11:29 STOMACH lactose AdvReac Unknown Unverified 06/18/21 11:29 General Stated Complaint: GenMedical SHAUN: 4 Review of Systems Constitutional Constitutional: Reports as per HPI, Denies chills, Denies fatigue, Denies fever(s) and Denies headache(s) ENT Ears, Nose, Mouth, and Throat: Denies headache(s), Reports nasal congestion and Reports post nasal drip Cardiovascular Cardiovascular: Reports as per HPI, Denies chest pain and Denies dyspnea Respiratory Respiratory: Reports as per HPI, Reports cough and Denies dyspnea Gastrointestinal Gastrointestinal: Reports as per HPI Musculoskeletal Musculoskeletal: Reports as per HPI and Denies back pain Integumentary/Breasts Skin/Breast: Reports as per HPI and Denies rash Neurologic Neurologic: Reports as per HPI and Denies headache(s) Endocrine Endocrine: Denies fatigue [facility]LY [facility] Medical History (Updated 07/05/21 @ 22:52 by WILLIAM Grimes) Cor athrscl-uns vessel (06/02/13) CABG 3v 09/15/12 [facility] cardiology PTCA 08-21-13 GERD (gastroesophageal reflux disease) (05/20/15) Pure hypercholesterolemia (09/27/15) TBI (traumatic brain injury) Tobacco abuse disorder (03/27/16) Tobacco use disorder Type II diabetes mellitus (01/05/14) Surgical History Aortocoronary bypass status (09/25/12) Coronary Artery Bypass Grafting (09/01/12) Coronary Stent (08/21/13) [facility] Extraction of cataract (02/10/18) left eye cataract removal with intraocular lens implant. Dr Melgoza Testicle removal, left Tonsillectomy and adenoidectomy (~1973) Family History Mother Essential hypertension Personal history of malignant neoplasm Heart disease Father Personal history of malignant neoplasm Heart disease Brother Substance abuse Social History Smoking/Tobacco Use Status: Current every day Smoking risk assessment performed?: Yes Alcohol Intake: never Drug use: Never Substance use type: does not use Do you feel safe at home: Yes Do you feel safe in your relationship?: Yes Exam Const General: cooperative, healthy appearing, comfortable, no acute distress and well developed Nutritional Appearance: average body habitus and well nourished Orientation: alert and awake [facility] Head: normal to inspection Face and sinus: normal facial exam Mouth: oral mucosae normal, moist mucous membranes, no trismus and No restricted motion Teeth and gingiva: dentition normal Throat: posterior oropharynx normal, tonsils normal and uvula midline Neck Neck: normal visual inspection, full ROM, no lymphadenopathy, trachea midline, supple, no anterior neck swelling and no lymphadenopathy noted Thyroid: thyroid normal Resp Effort & Inspection: normal respiratory effort, able to speak in complete sentences and no respiratory distress Auscultation: clear to auscultation bilaterally, no rales, no rhonchi and no wheezes Cardio Rate: regular rate Rhythm: regular rhythm Heart Sounds: S1 normal and S2 normal GI Inspection: normal to inspection Palpation: soft, no guarding, no pulsatile masses, not rigid and nontender Skin General skin exam: no rashes or lesions noted Trauma: no lacerations or abrasions Neuro General: patient alert and patient awake Cognition: normal cognition Speech: speech normal Gait: normal gait Psych Appearance: grossly normal and well kempt Mental Status: mental status grossly normal Speech and Movement: speech and movement normal Course Vital Signs Vital signs: Vital Signs Temperature 37.1 C 07/05/21 20:49 Pulse 78 08/04/21 20:49 Respiratory Rate 18 07/05/21 20:49 Blood Pressure 130/83 07/05/21 20:49 Pulse Oximetry 95 07/05/21 20:49 Temperature 37.1 C 07/05/21 20:49 Temperature Source Oral 07/05/21 20:49 Pulse 78 07/05/21 20:49 Respiratory Rate 18 07/05/21 20:49 Blood Pressure 130/83 07/05/21 20:49 Blood Pressure Position Sitting 07/05/21 20:49 Pulse Oximetry 95 07/05/21 20:49 Oxygen Delivery Method Room Air 07/05/21 20:49 Oxygen Flow Rate 0 07/05/21 20:49 Pain Level 1 07/05/21 20:49
[2021-07-05] MEDS: Lidocaine 2% Viscous 15 ML CUP PO (23:03)
[2021-07-05] MEDS: Mylanta Suspension 30 ML CUP PO (23:03)
[2021-07-05 23:04] VITALS: RESP 18
--- NOTE | 2021-07-06 07:14 | NUR.NOTE ---
Referral to Care Management, patient would like to establish care here in this area, gerd.Nursing Note:
== END 2021-07-05 23:05 | disposition home or self-care (01) ==
PROVIDERS: Emergency Provider Physician Assistant
DX: R05 Cough (principal); K21.9 Gastro-esophageal reflux disease without esophagitis
CPT/HCPCS: 99283

== ENCOUNTER 2021-07-09 20:19 | Emergency (ER) | payer OTHER, SELFPAY ==
[2021-07-09 20:30] VITALS: BP 133/79; PULSE 81; RESP 18; TEMP 36.7; O2SAT 95
--- NOTE | 2021-07-09 20:30 | DI.CT_ITS ---
Exam(s) CT CHEST/ABD/PEL W EXAM: CT CHEST/ABD/PEL W CLINICAL HISTORY: persistent cough, hiatal hernia, LLQ pain x 12 hr. TECHNIQUE: Imaging Protocol: Axial computed tomography images with coronal and sagittal reformatted images were created and reviewed CONTRAST MATERIAL: Intravenous: Omnipaque 350 Contrast volume:100 ml Oral: yes / no COMPARISON: CT CT CHEST PE CTA from 06/06/2021 FINDINGS: CHEST: Tracheobronchial tree: Patent where visualized. Mediastinum and Romelia: No dominant adenopathy or fluid collection. Pulmonary parenchyma: No acute infiltrates. Stable calcified noncalcified small pulmonary nodule con sistent with old granulomatous disease. Respiratory motion at the lung bases.. Pleura: No effusion or pneumothorax. Lymph nodes: Within normal limits. Aorta: Thoracic portion non-dilated. Heart: Normal size. Prior CABG. Bones: Unremarkable for age. No lytic or blastic lesions. Sternal wires. ABDOMEN: Liver: Normal density. No measurable mass. Gallbladder and biliary tract: No radiodense calculus or dilation. Pancreas: Normal density, no abnormal calcifications or inflammatory process. Spleen: Normal. Kidneys: Normal size, contour and axis. No radiodense stones or obstructive uropathy. No masses seen. Cyst lower pole left kidney. Adrenal glands: No masses seen. Aorta: Abdominal portion non-dilated. Moderate atherosclerotic changes. Lymph nodes: Within normal limits. Soft tissues: Unremarkable. PELVIS: Bladder: Symmetric distention, no gross wall thickening. Bowel: Moderate quantity of stool. No obstruction or bowel wall thickening. Peritoneal cavity: No ascites, collection or mesenteric inflammatory response. Bones: Unremarkable for age.. Reproductive organs: Within normal limits. IMPRESSION: No acute abnormality in the chest, abdomen or pelvis.. RADIATION DOSE DELIVERED: 1,212.94mGy.cm Total DLP DATA REPOSITORY: All CT scans at this facility are submitted to the National Radiology Data Registry (NRDR) Dose Index Registry (DIR) with the [employer] [place] [employer] (ACR). RADIATION OPTIMIZATION: All CT scans at this facility use at least one of these dose optimization te chniques: automated exposure control; mA and/or kV adjustment per patient size (includes targeted exa ms where dose is matched to clinical indication); or iterative reconstruction.
--- NOTE | 2021-07-09 20:42 | W.ED.GENAD ---
Discharge Plan Disposition Patient Disposition: HOME Condition: Improving Discharge Details Clinical Impression: GERD (gastroesophageal reflux disease), Abdominal muscle strain Primary Care Provider: Unknown,Unknown ED Provider: Demarco Norman Home Meds and New Rx's Prescriptions: New omeprazole 40 mg capsule,delayed release(DR/EC) 40 mg PO DAILY Qty: 30 RF: 0 Continued nitroglycerin 0.4 MG tablet, sublingual 0.4 mg Sublingual PRN Qty: 1 RF: 2 (DME) lancets 1 EACH misc 1 ea Miscellaneous BID Qty: 100 RF: 3 (DME) blood sugar diagnostic [SunEdisonTouch Ultra Test] 1 EACH strip 1 ea Miscellaneous BID Qty: 100 RF: 0 atorvastatin 80 MG tablet 80 mg PO DAILY Qty: 90 RF: 3 aspirin 81 MG tablet,delayed release (DR/EC) 81 mg PO DAILY Qty: 90 RF: 3 metoprolol tartrate 25 MG tablet 25 mg PO DAILY Qty: 90 RF: 3 glimepiride 4 MG tablet 4 mg PO DAILY Qty: 90 RF: 0 Levemir FlexTouch U-100 Insuln 100 unit/mL (3 mL) insulin pen 28 unit SUBCUT BID RF: 0 Ozempic 0.25 mg or 0.5 mg(2 mg/1.5 mL) pen injector 0.5 mg SUBCUT QWEEK RF: 0 albuterol sulfate 90 mcg/actuation HFA aerosol inhaler 2 puff inhalation Q6H PRN (Reason: shortness of breath or wheezing) Qty: 8.5 RF: 1 famotidine [Pepcid] 20 mg tablet 20 mg PO BID Qty: 60 RF: 1 sucralfate [Carafate] 100 mg/mL suspension 10 ml PO QACHS Qty: 420 RF: 0 Discharge Instructions Instructions: GERD (Gastroesophageal Reflux Disease) (ED), Muscle Strain (ED) Additional Instructions: [facility] with [facility] as planned for recheck. Continue your regular medications and add omeprazole as prescribed. Avoid fatty, fried, tomato-based foods and continue to work towards decreasing your tobacco use. We will refer you to general surgery clinic for consultation. Return to the emergency department for any acute concerns. Medical Decision Making 61-year-old male diabetic, smoker, with recent history of GERD for weeks time for which she is prescribed Carafate with his presenting outpatient follow-up. Now here radha with left lower quadrant pain that he described to a coughing fit earlier. Is dull, constant, worse while driving down the road. Is not had a fever, nor change to bowel or bladder habits. I do not appreciate a hernia or mass on exam but he is tender in the left lower quadrant. Differential diagnosis includes muscular strain, diverticulitis. Given the persistent cough, will consider intrathoracic causes of a persistent irritation, and therefore patient had IV access established, screening labs, and referred for CT scan of chest, abdomen and pelvis. Patient's labs reveal a white count of 12, hematocrit 51, platelets 401. Chemistries reassuring, LFTs unremarkable. CT images are unremarkable for acute pathology. Patient reassured. May simply be posttussive muscle strain. He will continue to follow-up with his plan to reestablish primary care. For GERD, GI cocktail was administered. He continues to take Pepcid and I will add PPI. Will also referred to general surgery clinic as he may benefit from repeat upper endoscopy. [facility] General Mode of arrival: ambulatory. Date/Time Provider Initiated Documentation: 07/09/21 20:33. Limitations to Documentation: no limitations. Information obtained by: patient. History of Present Illness 61 year old M presents to the emergency department with the chief complaint of Persistent cough and purulent symptoms, new left lower quadrant pain, Quality is described as dull and constant, and is localized to the abdomen and left. Patient reports no radiation. Patient started experiencing this hour(s) and it has been constant. No relieving factors improve symptom(s), No exacerbating factors reported . Patient notes cough and other (GERD type symptoms, worse at night, ran out of Carafate.). Patient did receive the following treatments prior to arrival, none Related Data Home Medications Medication Instructions Recorded Confirmed nitroglycerin 0.4 mg SUBLINGUAL PRN #1 bottle 01/23/17 07/09/21 lancets #100 ea 03/05/17 blood sugar diagnostic [OneTouch #100 strip 07/02/17 Ultra Test] aspirin 81 mg PO DAILY #90 tab 09/03/17 07/09/21 atorvastatin 80 mg PO DAILY #90 tab-cap 09/03/17 07/09/21 metoprolol tartrate 25 mg PO DAILY #90 tab-cap 10/03/17 08/08/21 glimepiride 4 mg PO DAILY #90 tab-cap 05/20/18 07/09/21 Levemir FlexTouch U-100 Insuln 28 unit SUBCUT BID 06/06/21 07/09/21 Ozempic 0.5 mg SUBCUT QWEEK 06/06/21 07/09/21 albuterol sulfate 2 puff INHALATION Q6H PRN #8.5 g 06/06/21 07/09/21 famotidine [Pepcid] 20 mg PO BID #60 tab 06/06/21 07/09/21 sucralfate [Carafate] 10 ml PO QACHS #420 ml 06/18/21 07/09/21 omeprazole 40 mg PO DAILY #30 cap 07/09/21 Previous Rx's Medication Instructions Recorded aspirin 81 mg PO DAILY #90 tab 09/03/17 atorvastatin 80 mg PO DAILY #90 tab-cap 09/03/17 metoprolol tartrate 25 mg PO DAILY #90 tab-cap 09/03/17 glimepiride 4 mg PO DAILY #90 tab-cap 05/20/18 albuterol sulfate 2 puff INHALATION Q6H PRN #8.5 g 06/06/21 famotidine [Pepcid] 20 mg PO BID #60 tab 06/06/21 sucralfate [Carafate] 10 ml PO QACHS #420 ml 06/18/21 omeprazole 40 mg PO DAILY #30 cap 07/09/21 Allergies Allergy/AdvReac Type Severity Reaction Status Date / Time nicotine [From Nicoderm CQ] Allergy Unverified 07/09/21 20:33 Penicillins Allergy RASH Unverified 07/09/21 20:33 lorazepam [From Ativan] AdvReac Severe SEVERE Unverified 07/09/21 20:33 AGITATION acetaminophen [From Tylenol] AdvReac Unknown SICK TO Unverified 07/09/21 20:33 STOMACH lactose AdvReac Unknown Unverified 07/09/21 20:33 General Stated Complaint: Abd Prob SHAUN: 3 Review of Systems Narrative: Aches systems reviewed and otherwise negative. [facility] Medical History Cor athrscl-uns vessel (06/02/13) CABG 3v 09/15/12 [facility] cardiology PTCA 08-21-13 GERD (gastroesophageal reflux disease) (05/20/15) Pure hypercholesterolemia (09/27/15) TBI (traumatic brain injury) Tobacco abuse disorder (03/27/16) Tobacco use disorder Type II diabetes mellitus (01/05/14) Surgical History Aortocoronary bypass status (09/25/12) Coronary Artery Bypass Grafting (09/01/12) Coronary Stent (08/21/13) [facility] Extraction of cataract (02/10/18) left eye cataract removal with intraocular lens implant. Dr Melgoza Testicle removal, left Tonsillectomy and adenoidectomy (~1973) Family History Mother Essential hypertension Personal history of malignant neoplasm Heart disease Father Personal history of malignant neoplasm Heart disease Brother Substance abuse Social History Smoking/Tobacco Use Status: Current every day Smoking risk assessment performed?: Yes Alcohol Intake: never Drug use: Never Substance use type: does not use Do you feel safe at home: Yes Do you feel safe in your relationship?: Yes Exam Narrative Exam Narrative: GEN: awake, alert, oriented 3. Pleasant, well groomed, interactive. HEAD: Normocephalic, atraumatic ENT: Mucous membranes moist, oropharynx unremarkable, External ear exam unremarkable EYES: PERRL, EOMI NECK: Full ROM, no ERNESTO, no menigismus CHEST/RESP: Nontender, clear to auscultation bilateral, no wheeze/rhonchi/rales CARDIOVASCULAR: RRR, no murmur, rub fermín. 2+ Rad pulse bilateral ABDOMEN: Soft, tender left lower quadrant, no large mass appreciated, no rebound or guarding. +Bowel sounds EXT: Full ROM, no edema, no rash Neuro: Grossly normal neurologic exam, conversant, interactive. Psych: Speech fluent, thoughts congruent, affect normal Course Vital Signs Vital signs: Vital Signs Temperature 36.7 C 07/09/21 20:30 Pulse 81 07/09/21 20:30 Respiratory Rate 18 07/09/21 20:30 Blood Pressure 133/79 07/09/21 20:30 Pulse Oximetry 95 07/09/21 20:30 Temperature 36.7 C 07/09/21 20:30 Temperature Source Temporal Artery Scan 07/09/21 20:30 Pulse 81 07/09/21 20:30 Respiratory Rate 18 07/09/21 20:30 Respiratory Effort Non-Labored 07/09/21 20:35 Blood Pressure 133/79 07/09/21 20:30 Blood Pressure Position Sitting 07/09/21 20:30 Pulse Oximetry 95 07/09/21 20:30 Oxygen Delivery Method Room Air 07/09/21 20:30 Oxygen Flow Rate 0 07/09/21 20:30 Pain Level 8 07/09/21 20:30
[2021-07-09] MEDS: Pantoprazole 40 MG VIAL IVP (21:10)
[2021-07-09 21:19] LABS: Abs Immature Grans 0.06 10^3/uL (0.0-0.06); Absolute Basophil Count 0.13 10^3/uL (0.0-0.2); Absolute Eosinophil Count 1.27 10^3/uL (0.0-0.7); Absolute Monocyte Count 0.87 10^3/uL (0.1-0.8); Eosinophils % 9.8; HCT 51.5 % (40.0-50.0); HGB 17.5 g/dL (13.5-17.5); Immature Grans % 0.5; Lymphocytes % 31.7; MCH 32.1 pg (27.0-33.0); MCV 94.5 fL (80-95); MPV 8.7 fL (8.0-11.0); Monocytes % 6.7; Neutrophils % 50.3; Nucleated RBC 0 %; Platelet Count 401 10^3/uL (130-400); RBC 5.45 10^6/uL (4.36-5.78); RDW 12.4 % (11.8-14.1); RDW-SD 43.3 fL; WBC 12.92 10^3/uL (4.4-10.8)
[2021-07-09 21:35] LABS: ALT 22 U/L (16-63); AST 11 U/L (15-37); Albumin 4.1 g/dL (3.4-5.0); Alkaline Phosphatase 80 U/L (46-116); BUN 15 mg/dL (7-18); Bilirubin, Total 0.5 mg/dL (0.2-1.0); Calcium 9.3 mg/dL (8.5-10.1); Chloride 104 mmol/L (98-107); Glucose 146 mg/dL (74-106); Potassium 3.7 mmol/L (3.5-5.1); Sodium 140 mmol/L (136-145); Total Protein 7.4 g/dL (6.4-8.2)
[2021-07-09] MEDS: Omnipaque 350 MG/ML 100 ML BTL IJ (22:00)
[2021-07-09] MEDS: Normal Saline - Diluent 50 ML VIAL IV (22:05)
[2021-07-09] MEDS: Normal Saline Flush 10 ML SYR IVP (22:05)
--- NOTE | 2021-07-09 22:25 | DI.VRAD_ITS ---
PROCEDURE INFORMATION: Exam: CT Chest With Contrast; Diagnostic Exam date and time: 07/09/2021 8:42 PM Age: 61 years old Clinical indication: Abdominal tenderness; Abdominal pain; Localized; Left lower quadrant (llq); Other: Abd pain; Prior surgery; Surgery date: 6+ months; Surgery type: Stents placed in 2014; Patient HX: Persistent cough, hiatal hernia, llq pain x 12 hr TECHNIQUE: Imaging protocol: Diagnostic computed tomography of the chest with contrast. 3D rendering (Not supervised by radiologist): MIP and/or 3D reconstructed images were created by the technologist. Radiation optimization: All CT scans at this facility use at least one of these dose optimization techniques: automated exposure control; mA and/or kV adjustment per patient size (includes targeted exams where dose is matched to clinical indication); or iterative reconstruction. Contrast material: OMNIPAQUE 350; Contrast volume: 100 ml; Contrast route: INTRAVENOUS (IV); COMPARISON: CT CHEST PE CTA 06/06/2021 9:21 PM FINDINGS: Lungs: Numerous scattered nodules and calcified nodule suggest granulomatous disease. No acute pulmonary infiltrate. Pleural spaces: Unremarkable. No pneumothorax. No pleural effusion. Heart: Unremarkable. No cardiomegaly. No pericardial effusion. Aorta: Unremarkable. No aortic aneurysm. Lymph nodes: Unremarkable. No enlarged lymph nodes. Bones/joints: Median sternotomy wires. Soft tissues: Unremarkable. IMPRESSION: No acute findings. PROCEDURE INFORMATION: Exam: CT Abdomen And Pelvis With Contrast Exam date and time: 07/09/2021 8:42 PM Age: 61 years old Clinical indication: Abdominal tenderness; Abdominal pain; Localized; Left lower quadrant (llq); Other: Abd pain; Prior surgery; Surgery date: 6+ months; Surgery type: Stents placed in 2014; Patient HX: Persistent cough, hiatal hernia, llq pain x 12 hr TECHNIQUE: Imaging protocol: Computed tomography of the abdomen and pelvis with contrast. 3D rendering (Not supervised by radiologist): MIP and/or 3D reconstructed images were created by the technologist. Radiation optimization: All CT scans at this facility use at least one of these dose optimization techniques: automated exposure control; mA and/or kV adjustment per patient size (includes targeted exams where dose is matched to clinical indication); or iterative reconstruction. Contrast material: OMNIPAQUE 350; Contrast volume: 100 ml; Contrast route: INTRAVENOUS (IV); COMPARISON: CT CHEST PE CTA 06/06/2021 9:21 PM FINDINGS: Liver: Normal. No mass. Gallbladder and bile ducts: Normal. No calcified stones. No ductal dilation. Pancreas: Normal. No ductal dilation. Spleen: Normal. No splenomegaly. Adrenal glands: Normal. No mass. Kidneys and ureters: Normal. No hydronephrosis. Stomach and bowel: Unremarkable. No obstruction. No mucosal thickening. Appendix: No evidence of appendicitis. Intraperitoneal space: Unremarkable. No free air. No significant fluid collection. Vasculature: Unremarkable. No abdominal aortic aneurysm. Lymph nodes: Unremarkable. No enlarged lymph nodes. Urinary bladder: Unremarkable as visualized. Reproductive: Unremarkable as visualized. Bones/joints: Unremarkable. No acute fracture. Soft tissues: Unremarkable. IMPRESSION: No acute findings. Dictated and Authenticated by: Rohan Stephen MD. Ordering:MALAIKA Pal MD
--- NOTE | 2021-07-09 22:35 | NUR.NOTE ---
Nursing Note:Referral faxed to general surgery for follow up care regarding emergency room visit as requested by Dr. Norman.
[2021-07-09 22:45] VITALS: BP 120/79; PULSE 67; RESP 18; O2SAT 96
--- NOTE | 2021-07-10 09:49 | CMACTNOTE_ITS ---
- If Service Date Differs Date of service: 07/10/21 Time of Service: 09:49 Care Management Activity Note Demarco has an appointment at [facility] for a nuclear stress test on Sunday, July 11, 2021. He additionally has appointments with [facility] on July 18, 2021. Per staff at [facility], an endoscopy procedure can not be scheduled until the results of the nuclear stress test are obtained from [facility] and reviewed. Mildred Melton, healthcare account manager at [facility], has also been in touch with Demarco to explain the process for establishing care. Demarco has been sent new patient paperwork and once this paperwork has been completed and returned, along with copies of his medical records from [facility], he will be assigned a provider at [facility]. Until then, Demarco knows he can be seen at [facility]'s express care clinic or can return to the ED for urgent care.
== END 2021-07-09 22:55 | disposition home or self-care (01) ==
PROVIDERS: Emergency Provider Emergency Medicine
DX: K21.9 Gastro-esophageal reflux disease without esophagitis (principal); S39.011A Strain of muscle, fascia and tendon of abdomen, initial encounter; X58.XXXA Exposure to other specified factors, initial encounter; R05 Cough
CPT/HCPCS: 36415; 74177; 80053; 96374; 99285; 71260; 85025; 99284; J3490

== ENCOUNTER 2021-07-18 04:07 | Outpatient (CLI) | payer OTHER, MEDICAID, SELFPAY ==
[2021-07-18] MEDS: Albuterol HFA 18 GM 200 PUFF INH IH (11:29)
[2021-07-18] MEDS: Inhaler, Assist Device 1 EACH MC (11:30)
--- NOTE | 2021-07-18 17:08 | W.PFT ---
Date of service: 07/18/21 Time of Service: 10:36 Pulmonary Function Test Result Requesting Provider Bennett Interpretation Spirometry: There is no airflow limitation. There is no significant bronchodilator response. Impression Normal spirometry Clinical Correlation therefore is recommended.
== END 2021-07-18 04:08 | disposition home or self-care (01) ==
LOC: RT 04:07
PROVIDERS: Visit Provider Student in an Organized Health Care Education/Training Program
DX: J43.9 Emphysema, unspecified (principal); J41.0 Simple chronic bronchitis; K21.9 Gastro-esophageal reflux disease without esophagitis
CPT/HCPCS: 94060; 99203; 99213

== ENCOUNTER 2021-09-05 03:06 | Outpatient (CLI) | payer OTHER, MEDICAID, SELFPAY ==
[2021-09-05 10:44] LABS: Source Nasal/Nares
[2021-09-05 14:40] LABS: COVID-19 PCR Negative (Negative)
== END 2021-09-05 03:07 | disposition home or self-care (01) ==
LOC: LBO 03:07
PROVIDERS: PCP Internal Medicine; Visit Provider Surgery
DX: Z20.822 Contact with and (suspected) exposure to COVID-19 (principal); Z01.818 Encounter for other preprocedural examination
CPT/HCPCS: 87635

== ENCOUNTER 2021-09-06 07:18 | Day surgery (SDC) | payer OTHER, MEDICAID, SELFPAY ==
--- NOTE | 2021-09-06 06:12 | HPE_ITS ---
Date of service: 09/06/21 Assessment and Plan Assessment and plan (1) Acid reflux: Status: Chronic Assessment and plan: Mr. Kirkland is a pleasant 61-year-old gentleman who is here to discuss an upper endoscopy. He has got a history of reflux which she is on omeprazole 40 mg daily. In the last 4 days he has not taken the omeprazole because his prescription ran out. His symptoms have since worsened. He was seen in the emergency department for upper abdominal lower chest pain. EKG was normal. He does have a history of CABG and stents placement. He denies any chest pain since his stents were placed. He did have a TIA and a myocardial infarction prior to his CABG and stents. He has been having some intermittent wheezing which usually resolves if he coughs. He just underwent pulmonary function tests today and is seeing her tobacco hanger this afternoon. He has been vaccinated for Covid. Risks and benefits and of upper endoscopy were reviewed with him and he wished to proceed. Risks, benefits and complications were reviewed with him. Complications include but are not limited to bleeding, perforation, sore throat, aspiration, and adverse reaction to medications. Queastions were entertained and answered to his satisfaction and he wished to proceed. No guarantees were given or implied. Proceed with EGD under sedation Qualifiers: Esophagitis presence: esophagitis presence not specified Qualified Code(s): K21.9 - Gastro-esophageal reflux disease without esophagitis History of Present Illness Narrative: Mr. Kirkland is a pleasant 61-year-old gentleman who is here today to discuss an upper endoscopy. He was referred by the ER. He was seen in the emergency department for upper abdominal lower chest pain. EKG was normal. He was given a GI cocktail which helped his symptoms. He describes his symptoms as burning. He also has been having issues with regurgitation. He has not had any weight loss although he is eating less because his stomach just does not feel good all the time. He is attempting to establish with a new primary care physician at [facility]. He is unhappy with his primary care physician at [facility] as they are not responsive when it comes to refilling his prescriptions. He was given a prescription for Pepcid 20 mg twice daily as well as Carafate 1 g 4 times daily by the emergency department. He did not fill those as he is already on omeprazole 40 mg daily. He ran out of omeprazole about 4 days ago. He tells me that on his way down here he had to stop at a rest stop because he was having so much burning upper abdominal pain. Patient seems quite anxious as he is telling me his symptoms. His past medical history significant for cardiovascular disease. He is status post CABG x3 in 2013 and stents in 2014. He has also had a carotid endarterectomy. He had a TIA in the past as well as a traumatic brain injury. He tells me that he has a diagnosis of GERD as well as a hiatal hernia. He did have an GA in 2015. It does not look like he has had a follow-up with cardiology since 2014. He has been having some respiratory issues and had pulmonary function tests done today. He is also seeing our tobacco hanger this afternoon. Mr. Kirkland is also wondering whether he would be a candidate for a Kiki fundoplication to help with his hiatal hernia and his GERD symptoms. No changes in his health since he was seen on July 19, 2021 Review of Systems Cardiovascular Cardiovascular: Denies chest pain, Denies chest pain at rest, Denies irregular heart rhythm, Denies dyspnea and Denies dyspnea on exertion Respiratory Respiratory: Denies cough, Denies dyspnea and Denies dyspnea on exertion Gastrointestinal Gastrointestinal: Reports as per HPI Genitourinary Genitourinary: Denies dysuria, Denies urinary incontinence and Denies urinary urgency Endocrine Endocrine: Reports system reviewed and no additional complaints, except as documented Hematologic/Lymphatic Hematologic/Lymphatic: Denies easy bruising and Denies lymphadenopathy [facility] Medical History Constipation Cor athrscl-uns vessel (06/02/13) CABG 3v 09/15/12 [facility] cardiology PTCA 08-21-13 Coronary arteriosclerosis GERD (gastroesophageal reflux disease) (05/20/15) History of anesthesia reaction Pt. states when he is waking up don't stand over him, because I come out swinging Hypertensive disorder Lipoma right hand. Lipoma of abdominal wall Myocardial infarct, old 2014-followed up with cardiology Dr. Mccall 08/2021 [facility] Pure hypercholesterolemia (09/27/15) Sleep apnea TBI (traumatic brain injury) Tobacco abuse disorder (03/27/16) Transient cerebral ischemia 2019 Type II diabetes mellitus (01/05/14) Umbilical hernia Vertigo pt. denies this Surgical History (Updated 09/06/21 @ 07:51 by Lyudmila Giordano) Aortocoronary bypass status (09/25/12) Coronary Artery Bypass Grafting (09/01/12) Coronary Stent (08/21/13) [facility] Extraction of cataract (02/10/18) left eye cataract removal with intraocular lens implant. Dr Melgoza H/O esophagogastroduodenoscopy H/O shoulder surgery History of breast biopsy left lipoma History of carotid endarterectomy History of carpal tunnel release History of colonoscopy History of nasal surgery History of removal of testicle Hx of CABG Hx of melanoma excision Testicle removal, left Tonsillectomy and adenoidectomy (~1973) Family History Mother Essential hypertension Personal history of malignant neoplasm Heart disease Father Personal history of malignant neoplasm Heart disease Brother Substance abuse Social History Smoking/Tobacco Use Status: Current every day Tobacco Type: cigarettes Years smoked: 41 Smoking risk assessment performed?: Yes Alcohol Intake: never Drug use: Never Substance use type: does not use Do you feel safe at home: Yes Do you feel safe in your relationship?: Yes Meds Allergies and Home Medications Allergies Allergy/AdvReac Type Severity Reaction Status Date / Time nicotine [From Nicoderm CQ] Allergy Other (See Verified 09/06/21 07:46 Comment) Penicillins Allergy RASH Verified 09/06/21 07:46 lorazepam [From Ativan] AdvReac Severe SEVERE Verified 09/06/21 07:46 AGITATION acetaminophen [From Tylenol] AdvReac Unknown SICK TO Verified 09/06/21 07:46 STOMACH lactose AdvReac Unknown Verified 09/06/21 07:46 Home Medications Medication Instructions Recorded Confirmed Type nitroglycerin 0.4 mg SUBLINGUAL PRN #1 bottle 01/23/17 09/06/21 History lancets #100 ea 03/05/17 09/06/21 History OneTouch Ultra Test #100 strip 07/02/17 09/06/21 History aspirin 81 mg PO DAILY #90 tab 09/03/17 09/06/21 Rx atorvastatin 80 mg PO DAILY #90 tab-cap 09/03/17 09/06/21 Rx metoprolol tartrate 25 mg PO DAILY #90 tab-cap 09/03/17 09/06/21 Rx glimepiride 4 mg PO DAILY #90 tab-cap 05/20/18 09/06/21 Rx Levemir FlexTouch U-100 Insuln 28 unit SUBCUT BID 06/06/21 09/06/21 History Ozempic 0.5 mg SUBCUT QWEEK 06/06/21 09/06/21 History albuterol sulfate 2 puff INHALATION Q6H PRN #8.5 g 06/06/21 09/06/21 Rx benzonatate 100 mg capsule 100 mg PO TID PRN 07/11/21 09/06/21 History guaifenesin 1,200 mg tablet, 1,200 mg PO BID #30 tab 07/18/21 09/06/21 Rx extended release 12 hr omeprazole 40 mg capsule,delayed 40 mg PO DAILY #90 cap 07/18/21 09/06/21 Rx release varenicline 0.5 mg (11)-1 mg (42) See Rx Instructions PO PER PKG DIR 07/18/21 09/06/21 Rx tablets in a dose pack #53 dose pk varenicline 1 mg tablet 1 mg PO BID #56 tab 07/18/21 09/06/21 Rx sucralfate 100 mg/mL oral 10 ml PO QACHS #420 ml 07/21/21 09/06/21 Rx suspension Exam Const General: healthy appearing and comfortable Resp Effort & Inspection: normal respiratory effort Auscultation: clear to auscultation bilaterally Cardio Rate: regular rate Rhythm: regular rhythm Heart Sounds: no click, no gallops and no murmurs
--- NOTE | 2021-09-06 06:19 | ENDO_ITS ---
Date of service: 09/06/21 Time of Service: 08:44 Endoscopy Report DATE OF PROCEDURE: 09/06/21 PRE-OP DIAGNOSIS: Acid reflux POST-OP DIAGNOSIS: other (inflammation of the duodenum, stomach and distal esophagus) PROCEDURE: EGD with biopsies SURGEON: Any Ortiz ANESTHESIA TYPE: General:No Airway (Steve Medina CRNA) ESTIMATED BLOOD LOSS: 3 PATHOLOGY: other (duodenal, antrum, cardia and distal esophagus biopsies) COMPLICATIONS: None DISPOSITION: same day INDICATIONS: Mr. Kirkland is a pleasant 61-year-old gentleman who is here to discuss an upper endoscopy. He has got a history of reflux which she is on omeprazole 40 mg daily. In the last 4 days he has not taken the omeprazole because his prescription ran out. His symptoms have since worsened. He was seen in the emergency department for upper abdominal lower chest pain. EKG was normal. He does have a history of CABG and stents placement. He denies any chest pain since his stents were placed. He did have a TIA and a myocardial infarction prior to his CABG and stents. He has been having some intermittent wheezing which usually resolves if he coughs. He just underwent pulmonary function tests today and is seeing her farm operator this afternoon. He has been vaccinated for Covid. Risks and benefits and of upper endoscopy were reviewed with him and he wished to proceed. Risks, benefits and complications were reviewed with him. Complications include but are not limited to bleeding, perforation, sore throat, aspiration, and adverse reaction to medications. Queastions were entertained and answered to his satisfaction and he wished to proceed. No guarantees were given or implied. FINDINGS: inflammation of the duodenum, antrum, cardia and esophagus Possible Monahan's PROCEDURE DESCRIPTION: After informed consent was obtained the patient was take to the procedure room and placed in a supine position. Monitors were applied and a time out was done. The patients name, date of , procedure type, allergies to medications and metal in their body was reviewed. A bite block was placed and the patient was sedated. Once sedated and comfortable the gastroscope was advanced through the oropharynx which was grossly normal into the esophagus. The proximal and mid- esophagus were normal. In the distal esophagus there was inflammation noted. The scope was advanced into the stomach and through the pylorus into the 3rd portion of the duodenum. The duodenum was noted to have inflammation in the 1st and second portion. Biopsies were done to rule out Celiac. The scope was retracted back into the stomach. There was inflammation noted in the antrum. Biopsies were done to rule out H. pylori. There were no ulcers. The scope was retroflexed. The cardia and fundus were noted toalso have some mild inflammation. Biopsies were done. There was no hiatal hernia noted. The scope was retracted back into the esophagus. There were 2 areas of irregularity at the GE junction that could be Monahan's. Biopsies were done of the GE junction to rule out Monahan's. The GE junction was at 48 cm. The scope was removed and the patient was woken up and taken back to [facility] in stable condition. Follow up: in the office in 2 weeks. I will increase his omeprazole to 40 mg BID for a short while and see if that helps his symptoms.
--- NOTE | 2021-09-06 06:20 | W.PM.DSUDISC ---
Discharge Plan Disposition Patient Disposition: HOME Condition: Good Discharge Details Reason For Visit: EGD Attending Provider: Any Ortiz Primary Care Provider: Luigi Rae Home Meds and New Rx's Prescriptions: New omeprazole 40 mg capsule,delayed release(DR/EC) 40 mg PO BID Qty: 60 RF: 0 Continued Chantix Starting Month Box 0.5 mg (11)- 1 mg (42) tablets,dose pack See Rx Instructions PO PER PKG DIR Qty: 53 RF: 0 varenicline [Chantix Continuing Month Box] 1 mg tablet 1 mg PO BID Qty: 56 RF: 4 Mucinex 1,200 mg tablet extended release 12hr 1,200 mg PO BID Qty: 30 RF: 5 nitroglycerin 0.4 MG tablet, sublingual 0.4 mg Sublingual PRN Qty: 1 RF: 2 (DME) lancets 1 EACH misc 1 ea Miscellaneous BID Qty: 100 RF: 3 (DME) OneTouch Ultra Test 1 EACH strip 1 ea Miscellaneous BID Qty: 100 RF: 0 atorvastatin 80 MG tablet 80 mg PO DAILY Qty: 90 RF: 3 aspirin 81 MG tablet,delayed release (DR/EC) 81 mg PO DAILY Qty: 90 RF: 3 metoprolol tartrate 25 MG tablet 25 mg PO DAILY Qty: 90 RF: 3 glimepiride 4 MG tablet 4 mg PO DAILY Qty: 90 RF: 0 benzonatate [Tessalon Perles] 100 mg capsule 100 mg PO TID PRNRF: 0 sucralfate [Carafate] 100 mg/mL suspension 10 ml PO QACHS Qty: 420 RF: 8 Levemir FlexTouch U-100 Insuln 100 unit/mL (3 mL) insulin pen 28 unit SUBCUT BID RF: 0 Ozempic 0.25 mg or 0.5 mg(2 mg/1.5 mL) pen injector 0.5 mg SUBCUT QWEEK RF: 0 albuterol sulfate 90 mcg/actuation HFA aerosol inhaler 2 puff inhalation Q6H PRN (Reason: shortness of breath or wheezing) Qty: 8.5 RF: 1 Discontinued omeprazole 40 mg capsule,delayed release(DR/EC) 40 mg PO DAILY Qty: 90 RF: 3 Discharge Instructions Instructions: Diet for Stomach Ulcers and Gastritis (ED), Duodenitis (DC), Gastritis (DC), Esophagitis (DC) Additional Instructions: Findings: Inflammation of the small bowel, stomach and esophagus Follow up: 2 weeks in the office Please call if you develop: fevers >101.5 Nausea or Vomiting Abdominal pain that is not transient Rectal bleeding that is more then a tbsp A hard abdomen and inability to pass gas DAY SURGERY UNIT POST ENDOSCOPY INSTRUCTIONS Instructions for everyone who is given Anesthesia: For your safety, please do the following for the next 24 Hours: a. Do not drive or operate dangerous equipment b. Do not drink alcohol beverages or use any recreational drugs for the first 24 hours or while taking pain medications. The medications in your body may have a reaction that can be dangerous. c. Do not make any important decisions or sign any important papers 1. Generally there are no restrictions on your activity after a day or so has gone by, but you may feel a bit fatigued for a few days. 2. After you arrive home you may have a light meal and return to a normal diet as you can tolerate it without feeling sick to your stomach. 3. After surgery, you may feel pain or discomfort. This should be only transient, but if it persists please contact your doctor. 4. If there are any questions regarding the findings of your procedure, please feel free to contact your doctor. 6. If you are unable to contact your doctor with a problem, contact the hospital at [phone]. 7. Continue all your regular medications unless directed otherwise. I understand the above instructions and have no questions. Signature of Patient or Responsible Adult Escort Date/Time Name of Responsible Adult Escort Signature of Nurse Date/Time Activity:: Activity as Tolerated Diet:: low acid Discharge Orders Discharge Orders: Discharge Order (Routine); Ordered 09/06/21 Ordered By: Any Ortiz DS: Diagnosis Discharge Diagnosis (1) Acid reflux: Status: Chronic
--- NOTE | 2021-09-06 07:10 | ANES.PREOP_ITS ---
General Info Date of Service Date Performed: 09/06/21 Height: 5 ft 6 in Weight: 84.822 kg Body Mass Index (BMI): 30.2 Surgical Procedure: Operation Date: 09/06/21 08:20 Proposed Procedures Side Surgeon p Gastroscopy Any Ortiz MD Meds Allergies and Home Medications Allergies Allergy/AdvReac Type Severity Reaction Status Date / Time nicotine [From Nicoderm CQ] Allergy Other (See Verified 09/06/21 07:46 Comment) Penicillins Allergy RASH Verified 09/06/21 07:46 lorazepam [From Ativan] AdvReac Severe SEVERE Verified 09/06/21 07:46 AGITATION acetaminophen [From Tylenol] AdvReac Unknown SICK TO Verified 09/06/21 07:46 STOMACH lactose AdvReac Unknown Verified 09/06/21 07:46 Home Medication Medication Instructions Recorded nitroglycerin 0.4 mg SUBLINGUAL PRN #1 bottle 01/23/17 lancets #100 ea 03/05/17 OneTouch Ultra Test #100 strip 07/02/17 aspirin 81 mg PO DAILY #90 tab 09/03/17 atorvastatin 80 mg PO DAILY #90 tab-cap 09/03/17 metoprolol tartrate 25 mg PO DAILY #90 tab-cap 09/03/17 glimepiride 4 mg PO DAILY #90 tab-cap 05/20/18 Levemir FlexTouch U-100 Insuln 28 unit SUBCUT BID 06/06/21 Ozempic 0.5 mg SUBCUT QWEEK 06/06/21 albuterol sulfate 2 puff INHALATION Q6H PRN #8.5 g 06/06/21 benzonatate 100 mg capsule 100 mg PO TID PRN 07/11/21 guaifenesin 1,200 mg tablet, 1,200 mg PO BID #30 tab 07/18/21 extended release 12 hr omeprazole 40 mg capsule,delayed 40 mg PO DAILY #90 cap 07/18/21 release varenicline 0.5 mg (11)-1 mg (42) See Rx Instructions PO PER PKG DIR 07/18/21 tablets in a dose pack #53 dose pk varenicline 1 mg tablet 1 mg PO BID #56 tab 07/18/21 sucralfate 100 mg/mL oral 10 ml PO QACHS #420 ml 07/21/21 suspension Current Visit Medications: Current Medications Generic Name Dose Route Start Last Admin Trade Name Freq PRN Reason Stop Dose Admin Hyoscyamine Sulfate 0.125 mg 09/06/21 06:21 Hyoscyamine 0.125 Mg Sl/Oral/Chew SL DIRECTED PRN Ringer's Solution 1,000 mls @ 80 mls/hr 09/06/21 06:00 IV 10/05/21 23:59 INFUSION [facility] IV Miscellaneous Supplies 1 each 09/06/21 06:00 Iv Access IV 10/05/21 23:59 DIRECTED MIAH Ondansetron HCl 4 mg 09/06/21 06:21 Ondansetron 4 Mg/2 Ml Vial IVP Q4H PRN PRN Nausea / Vomiting Sodium Chloride 0 ml 09/06/21 06:00 Normal Saline Flush 10 Ml Syr IV 10/05/21 23:59 PRN PRN Sodium Chloride 0 ml 09/06/21 06:00 Normal Saline 10 Ml Vial IJ 10/05/21 23:59 DIRECTED PRN Sterile Water 0 ml 09/06/21 06:00 Water,Injection,Sterile 10 Ml Vial IJ 10/05/21 23:59 DIRECTED PRN PFSH Active Problems Active Problems: Problem Status Onset Code Anxiety state 06/15/14 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, in remission 09/25/12 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, unspecified 12/03/12 G47.30 Traumatic brain injury 01/05/14 S06.9X9A Unable to control anger 01/05/14 R45.4 Acid reflux K21.9 Cough R05 Chest pain R07.9 Abdominal muscle strain S39.011A Emphysema lung J43.9 Chronic bronchitis J42 Aortocoronary bypass status 09/25/12 Z95.1 Cor athrscl-uns vessel 06/02/13 I25.10 GERD (gastroesophageal reflux disease) 05/20/15 K21.9 Pure hypercholesterolemia 09/27/15 E78.00 Tobacco abuse disorder 03/27/16 Z72.0 Type II diabetes mellitus 01/05/14 E11.9 Medical History Medical History Constipation Cor athrscl-uns vessel (06/02/13) CABG 3v 09/15/12 [facility] cardiology PTCA 08-21-13 Coronary arteriosclerosis GERD (gastroesophageal reflux disease) (05/20/15) History of anesthesia reaction Pt. states when he is waking up don't stand over him, because I come out swinging Hypertensive disorder Lipoma right hand. Lipoma of abdominal wall Myocardial infarct, old 2014-followed up with cardiology Dr. Mccall 08/2021 [facility] Cardiology Pure hypercholesterolemia (09/27/15) Sleep apnea TBI (traumatic brain injury) Tobacco abuse disorder (03/27/16) Transient cerebral ischemia 2019 Type II diabetes mellitus (01/05/14) Umbilical hernia Vertigo pt. denies this Surgical History Surgical History Aortocoronary bypass status (09/25/12) Coronary Artery Bypass Grafting (09/01/12) Coronary Stent (08/21/13) [facility] Extraction of cataract (02/10/18) left eye cataract removal with intraocular lens implant. Dr Melgoza H/O esophagogastroduodenoscopy H/O shoulder surgery History of breast biopsy left lipoma History of carotid endarterectomy History of carpal tunnel release History of colonoscopy History of nasal surgery History of removal of testicle Hx of CABG Testicle removal, left Tonsillectomy and adenoidectomy (~1973) Tobacco Smoking/Tobacco Use Status: Current every day Tobacco Type: cigarettes Smoking cigarettes per day: 5 Years smoked: 41 Smoking pack-years: 10.25 Alcohol Alcohol Intake: never Substance Use Substance use: Never Substance use type: does not use Vital Signs and Lab Results Lab Results Blood Type / Crossmatch: No Data to Display Complete Blood Count: No Data to Display Complete Metabolic Panel: No Data to Display Liver Function Panel: No Data to Display Coagulation Panel: No Data to Display Cardiac Panel: No Data to Display Arterial Blood Gas: No Data to Display Venous Blood Gas: No Data to Display Pancreas Panel: No Data to Display Thyroid Panel: No Data to Display Infectious Disease: Coronavirus (COVID-19)(PCR) Negative (Negative) 09/05/21 09:03 09/05/21 Coronavirus 2019 Source Nasal/Nares 09/05/21 09:03 09/05/21 Blood Cultures: No Data to Display Toxicology Panel: No Data to Display Imaging and Studies Imaging and Studies EKG Summary: Conclusion Sinus rhythm...normal P axis, V-rate 60- 99 Probable left atrial enlargement...P >50mS, <-0.10mV V1 Right axis deviation...QRS axis ( 91,269). Artifact. No STEMI. I have reviewed and interpreted ECG and agree with software generated interpretation. Electronically signed by: <Electronically signed by Lea Camara DO in OV> [id number] Cosigned by: Other Study Summary:: February 17, 2015 Dear Mary: I saw Demarco Kirkland back in the Cardiology office today. I think you are familiar with Demarco's ongoing chest pain situation. He underwent coronary artery bypass surgery two years ago, but has had continued atypical, almost constant, chest discomfort ever since, which is probably some sort of chest wall phenomenon. He is under bvdg-[id number] emotional stress, and he thinks that is exacerbating his chest discomfort, which is probably true. He frets about it constantly. Somehow, this does not prevent him from being physically active. 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 Medications: Ranitidine. Amlodipine 2.5mg daily. Metoprolol tartrate 25mg BID. Lasix 10mg daily. Atorvastatin 80mg daily. Objective: On examination, he was pleasant, complaining of some chest discomfort, but was quite comfortable otherwise, and talkative. Blood pressure 130/70. Pulse 56 and regular. His neck is clear. His anterior chest wall is still sore, but his sternotomy incision is well healed. He has normal heart sounds, good peripheral pulses, no pedal edema. Assessment: Noncardiac chest pain. Anxiety. Plan: I had another long talk with Demarco today. I tried to be reassuring. I did, somewhat reluctantly, give him a prescription for Diazepam 2.5mg, #20, to use sparingly prn, with no refills. I will see him back here in a few months. I don't think he needs to restrict his physical activities. - Dictated by: MIKE SHUKLA MD Dictated:: [id number]<Electronically signed by MIKE SHUKLA M.D.> [id number] Transcribed Date: 02/18/15 Transcribed Time: 1230By: Anesthesia Assessment and Plan Anesthesia History Personal History: No History of Anesthesia Complications Family History: No Family History of Anesthesia Complications Exercise Tolerance Exercise Tolerance: Metabolic Equivalents>4 Pertinent Negatives Pertinent Negatives: No Symptoms of GERD (Well controlled with medication), No Major Cardiovascular Symptoms or Complaints, No Major Pulmonary Symptoms or Complaints and No History of CVA/TIA Cardiac & Pulmonary Exam Cardiac Exam: Normal S1/S2 Heart Sounds Pulmonary Exam: Clear Bilateral Breath Sounds Airway Exam Known Difficult Airway: No Mallampati Class: 1 Mouth Opening: Normal (> 3cm) Thyromental Distance: Greater than 3 cm Neck Range of Motion: Full ROM Neck Circumference: Normal Teeth Condition: Removable Dentures/Plates Upper ASA Classification ASA Score: ASA 2 Emergency Case?: No NPO Status NPO Status: NPO Clears >2 hours, Solids >8 hours Anesthesia Plan Resuscitation Status: Full Code Anesthesia Technique: General Anesthesia Airway Planned: Natural Airway Monitors Used: Standard Monitors
[2021-09-06 07:12] VITALS: BMI 30.2
[2021-09-06 07:40] VITALS: BP 118/78; PULSE 70; RESP 16; TEMP 35.8; O2SAT 100
[2021-09-06] MEDS: Lactated Ringers 1,000 ML 80 ML IV (08:00)
--- NOTE | 2021-09-06 08:33 | STOM_PTH ---
PATIENT: Demarco Kirkland LOC: [facility] U#:[id number] AGE/SX: 61/M ROOM: RE09/06/[address]: Any Ortiz MD : 1960 BED: DIS: 09/06/2021 SPEC #: [id number] RECD: 09/06/21 12:52 STATUS: DENIA RELenny #: [id number] BO: 09/06/21 08:[address]: Any Ortiz DEPT: Surgical Specimen RECD BY: Mahsa Velez ENTERED: 09/06/21 12:54 SP TYPE: STOMACH OTHR DR: Luigi Rae Tissues: 1 - BIOPSY BOWEL 2 - STOMACH BIOPSY 3 - STOMACH BIOPSY 4 - ESOPHAGUS BIOPSY Procedures: GROSS AND MICRO LEVEL 4 Comments: [id number]
[2021-09-06 09:03] VITALS: BP 120/77; PULSE 65; RESP 16; TEMP 36; O2SAT 98
--- NOTE | 2021-09-06 09:03 | W.ANESPOSTOP ---
Postoperative Evaluation Date, Time and Location Date Performed: 09/06/21 Time Performed: 09:03 Patient Location: Day Surgery Unit Vital Signs Most Recent Imported Vital Signs: Most Recent Vital Signs Temp Pulse Resp BP Pulse Ox 35.8 C L 70 16 118/78 100 09/06/21 07:40 09/06/21 07:40 09/06/21 07:40 09/06/21 07:40 09/06/21 07:40 Most Recent Manually Entered Vital Signs: Adult Blood Pressure: 120/77 Heart Rate: 65 Respirations: 12 Oxygen Saturation (%): 97 Temperature (C): 36.3 C Pain Score (0-10 Scale): 0 Pain Score Most Recent Pain Score: Most Recent Pain Score Pain Level 0 09/06/21 07:40 Assessment Mental Status: Awake (Alert & Oriented to Patient Baseline) Airway and Respiratory Function: Patent airway with normal (patient baseline) respiratory exam Cardiovascular Function: Hemodynamically Stable Hydration Status: Adequately Hydrated Nausea & Vomiting: No Nausea or Vomiting Pain: Pt. Denies Any Pain Peripheral Nerve Block: Patient did not receive a nerve block
[2021-09-06 09:04] VITALS: BP 120/77; PULSE 65; RESP 12; TEMPC 36.3; O2SAT 97
[2021-09-06] MEDS: Ketorolac 30 MG/ML VIAL IVP (09:37)
[2021-09-06 09:40] VITALS: BP 126/87; PULSE 63; RESP 18; TEMP 36.2; O2SAT 97
== END 2021-09-06 10:25 | disposition home or self-care (01) ==
PROVIDERS: PCP Internal Medicine; Visit Provider Surgery
PROC: 0DJ68ZZ Inspection of Stomach, Via Natural or Artificial Opening Endoscopic (ICD-10-PCS; CPT 43235; principal; 2021-09-06 08:15)
DX: K29.80 Duodenitis without bleeding (principal); K29.70 Gastritis, unspecified, without bleeding; K20.90 Esophagitis, unspecified without bleeding; K31.89 Other diseases of stomach and duodenum; K22.70 Barrett's esophagus without dysplasia
CPT/HCPCS: 43239; 88305; J1885; J2001; J2250

== ENCOUNTER → 2021-09-21 14:11 | Outpatient (BNVA) | payer MEDICARE, MEDICAID, SELFPAY | PROVIDERS: PCP Internal Medicine; Referring Provider Internal Medicine; Visit Provider Physical Therapy Assistant | DX: R19.4 Change in bowel habit (principal); Z86.010 Personal history of colon polyps; E11.9 Type 2 diabetes mellitus without complications | CPT/HCPCS: 99214 ==

== ENCOUNTER 2021-10-10 01:11 | Outpatient (CLI) | payer MEDICARE, MEDICAID, SELFPAY ==
--- NOTE | 2021-10-10 15:30 | DI.CTLCSR_ITS ---
Exam(s) CT CHEST LUNG CANCER SCREEN EXAM: CT CHEST LUNG CANCER SCREEN CLINICAL HISTORY: NICOTINE DEPENDENCE F17.210, SCREENING FOR LUNG CANCER TECHNIQUE: Imaging Protocol: Axial computed tomography images with coronal and sagittal reformatted images were created and reviewed COMPARISON: CT CT CHEST/ABD/PEL W from 07/09/2021 FINDINGS: Tracheobronchial tree: Patent where visualized. Pulmonary parenchyma: No consolidation or dominant measurable mass. No architectural distortion. Mult iple calcified granuloma consistent with prior granulomatous disease. Lung Nodules: None. Mediastinum and Romelia: No dominant adenopathy or fluid collection. Thyroid gland: Unremarkable. Pleura: No effusion or pneumothorax. Heart: The heart is not dilated. Coronary artery calcifications are present. No pericardial effusion . Aorta: Thoracic aorta non-dilated.Atherosclerosis. Upper abdomen: Unremarkable. Soft Tissues: Unremarkable. Bones: Within normal limits. Sternotomy wires are present. IMPRESSION: No noncalcified pulmonary nodules. Lung RADS Cat 1 - Negative: No nodules and definitely benign nodules Lung-RADS 1.0 CATEGORIES: Category 0 - Prior chest CT exam(s) being located for comparison. Category 1 - Annual screening in 12 months. No nodules or definitely benign nodules. Category 2 - Annual screening in 12 months. Benign appearance. Nodules with low likelihood of becomin g active cancer. Category 3 - 6-month follow-up. Probably benign. Short-term follow-up suggested. Nodules with low lik elihood of becoming active cancer. Category 4A - 3-month follow-up and CT/PET if >8 mm in size. Suspicious finding. Findings which requi re additional testing. Category 4B - Findings which require additional testing and tissue sampling. Suspicious finding. Modifier S- Potentially clinically significant finding. (Non lung cancer) RADIATION DOSE DELIVERED: 76.42mGy.cm Total DLP 1.84mGy CTDIvol 76.42mGy.cm Total DLP 1.84mGy CTDIvol DATA REPOSITORY: All CT scans at this facility are submitted to the National Radiology Data Registry (NRDR) Dose Index Registry (DIR) with the [employer] (ACR). RADIATION OPTIMIZATION: All CT scans at this facility use at least one of these dose optimization te chniques: automated exposure control; mA and/or kV adjustment per patient size (includes targeted exa ms where dose is matched to clinical indication); or iterative reconstruction.
== END 2021-10-10 01:31 ==
PROVIDERS: PCP Internal Medicine; Visit Provider Internal Medicine
DX: Z12.2 Encounter for screening for malignant neoplasm of respiratory organs (principal); F17.210 Nicotine dependence, cigarettes, uncomplicated
CPT/HCPCS: 71271

== ENCOUNTER 2022-01-22 07:01 | Day surgery (SDC) | payer MEDICARE, MEDICAID, SELFPAY ==
[2022-01-22] MEDS: Tropicam./Phenyleph. (1/2.5%) 5 ML BTL OD ×3 (07:56→08:09)
[2022-01-22 07:58] VITALS: BP 109/71; PULSE 66; RESP 16; TEMP 36.4; O2SAT 98
--- NOTE | 2022-01-22 08:20 | W.ANESPRE ---
General Info Date of Service Date Performed: 01/22/22 Height: 5 ft 6 in Weight: 86.8 kg Body Mass Index (BMI): 30.9 Surgical Procedure: Operation Date: 01/22/22 09:40 Proposed Procedure Side Surgeon p Cataract Extraction with IOL Implant Right Spencer Melgoza MD Meds Allergies and Home Medications Allergies Allergy/AdvReac Type Severity Reaction Status Date / Time nicotine [From Nicoderm CQ] Allergy Other (See Verified 01/22/22 07:49 Comment) Penicillins Allergy RASH Verified 01/22/22 07:49 lorazepam [From Ativan] AdvReac Severe SEVERE Verified 01/22/22 07:49 AGITATION acetaminophen [From Tylenol] AdvReac Unknown SICK TO Verified 01/22/22 07:49 STOMACH lactose AdvReac Unknown Verified 01/22/22 07:49 Home Medication Medication Instructions Recorded nitroglycerin 0.4 mg sublingual 0.4 mg SUBLINGUAL PRN #1 bottle 01/23/17 tablet lancets 28 gauge #100 ea 03/05/17 blood sugar diagnostic (OneTouch #100 strip 07/02/17 Ultra Test) aspirin 81 mg tablet,delayed 81 mg PO DAILY #90 tab 09/03/17 release atorvastatin 80 mg tablet 80 mg PO DAILY #90 tab-cap 09/03/17 metoprolol tartrate 25 mg tablet 25 mg PO DAILY #90 tab-cap 09/03/17 glimepiride 4 mg tablet 4 mg PO DAILY #90 tab-cap 05/20/18 albuterol sulfate 90 mcg/actuation 2 puff INHALATION Q6H PRN #8.5 g 06/06/21 aerosol inhaler insulin detemir U-100 100 unit/mL 28 unit SUBCUT BID 06/06/21 (3 mL) subcutaneous pen (Levemir FlexTouch U-100 Insulin) semaglutide (Ozempic) 0.5 mg SUBCUT QWEEK 06/06/21 benzonatate 100 mg capsule 100 mg PO TID PRN 07/11/21 (Tessalon Perles) guaifenesin 600 mg tablet, 1,200 mg PO BID #120 tab 11/06/21 extended release 12 hr (Mucinex) empagliflozin 10 mg tablet 10 mg PO DAILY 01/18/22 (Jardiance) Current Visit Medications: Current Medications Generic Name Dose Route Start Last Admin Trade Name Freq PRN Reason Stop Dose Admin Acetaminophen 1,000 mg 01/22/22 06:00 Acetaminophen 500 Mg Tab PO Q4H PRN PRN Miscellaneous Medication 0 ml 01/22/22 06:00 Prednisolone 1%, Moxifloxacin 0.5%, Nepafenac 0.1% 5ml Btl OD DIRECTED [facility] Miscellaneous Medication 0 ml 01/22/22 06:00 01/22/22 08:09 Tropicam./Phenyleph. 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 states when he is waking up don't stand over him, because I come out swinging Hypertensive disorder Lipoma right hand. Lipoma of abdominal wall Myocardial infarct, old 2014-followed up with cardiology Dr. Mccall 08/2021 [facility] Cardiology Sleep apnea TBI (traumatic brain injury) Transient cerebral ischemia 2019 Umbilical hernia Vertigo pt. denies this Medical History Comments:: With Anesthesia pt states dont stand over my face; can be combative Surgical History Surgical History Coronary Artery Bypass Grafting (09/01/12) Coronary Stent (08/21/13) [facility] Extraction of cataract (02/10/18) left eye cataract removal with intraocular lens implant. Dr Melgoza H/O esophagogastroduodenoscopy 09/2021 H/O shoulder surgery History of breast biopsy left lipoma History of carotid endarterectomy History of carpal tunnel release History of colonoscopy History of nasal surgery History of removal of testicle Hx of CABG Hx of melanoma excision Testicle removal, left Tonsillectomy and adenoidectomy (~1973) Tobacco Smoking/Tobacco Use Status: Current every day Tobacco Type: cigarettes Smoking cigarettes per day: 8 Years smoked: 41 Smoking pack-years: 10.25 Alcohol Alcohol Intake: never Substance Use Substance use: Never Substance use type: does not use Vital Signs and Lab Results Vital Signs Most Recent Vital Signs in EMR: Most Recent Vital Signs Temp Pulse Resp BP Pulse Ox 36.4 C L 66 16 109/71 98 01/22/22 07:58 01/22/22 07:58 01/22/22 07:58 01/22/22 07:58 01/22/22 07:58 Point of Care Results Point of Care Results: Finger Stick Blood Glucose 103 01/22/22 08:05 Lab Results Blood Type / Crossmatch: No Data to Display Complete Blood Count: No Data to Display Complete Metabolic Panel: No Data to Display Liver Function Panel: No Data to Display Coagulation Panel: No Data to Display Cardiac Panel: No Data to Display Arterial Blood Gas: No Data to Display Venous Blood Gas: No Data to Display Pancreas Panel: No Data to Display Thyroid Panel: No Data to Display Infectious Disease: No Data to Display Blood Cultures: No Data to Display Toxicology Panel: No Data to Display Imaging and Studies Imaging and Studies Study information below may be from another EMR and interpreted by another provider. Please see original notes in EMR for more complete details. EKG Summary: DATE/TIME OF SERVICE: 06/18/21 1002 : 1960PERFORMING LOCATION: ER APPROVED REPORT Exam: Resting ECG Reason for Exam: chest discomfort Patient Location: E HR:69 bpm ECG Measurements Heart Rate 69 AXIS SD 208 P 54 QRSd 104 QRS 95 QT 409 T63 QTc 438 Conclusion Sinus rhythm...normal P axis, V-rate 60- 99 Probable left atrial enlargement...P >50mS, <-0.10mV V1 Right axis deviation...QRS axis ( 91,269). Stress Test Summary: Date of study: 07/04/2015 *PATIENT PRESENTATION* Height: 172.7cm (68in ) Blood Pressure: Weight: 91.8kg (202lb ) BSA: 2.13m^2 Ordering physician: Mike Partida MD Impressions: Normal perfusion by Tc99m Sestamibi Imaging. Echocardiogram Summary: Date of study: 07/03/2016 Transthoracic Echocardiography M-mode, complete 2D, complete spectral Doppler, and color Doppler *STUDY CONCLUSIONS* Summary: 1. Left ventricle: The cavity size was normal. Wall thickness was increased in a pattern of mild LVH. Systolic function was normal. The estimated ejection fraction was 55-60%. Although no diagnostic regional wall motion abnormality was identified, this possibility cannot be completely excluded on the basis of this study. 2. Aortic valve: There was a small, 1.0cm (L) x 0.5cm (W), pedunculated, calcified, mobilemass on the aortic aspect of the noncoronary cusp. 3. Mitral valve: Mild thickening, consistent with myxomatous proliferation. 4. Right ventricle: The cavity size was normal. Wall thickness was normal. Systolic function was normal. Pulmonary Function Summary: Date of service: 07/18/21 Time of Service: 10:36 Pulmonary Function Test Result Requesting Provider Bennett Sow Spirometry: There is no airflow limitation. There is no significant bronchodilator response. Impression Normal spirometry Clinical Correlation therefore is recommended. Other Study Summary:: February 17, 2015 Dear Mary: I saw Demarco Kirkland back in the Cardiology office today. I think you are familiar with Demarco's ongoing chest pain situation. He underwent coronary artery bypass surgery two years ago, but has had continued atypical, almost constant, chest discomfort ever since, which is probably some sort of chest wall phenomenon. He is under nwzg-qiwy-xslkz emotional stress, and he thinks that is exacerbating his chest discomfort, which is probably true. He frets about it constantly. Somehow, this does not prevent him from being physically active. 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 Medications: Ranitidine. Amlodipine 2.5mg daily. Metoprolol tartrate 25mg BID. Lasix 10mg daily. Atorvastatin 80mg daily. Objective: On examination, he was pleasant, complaining of some chest discomfort, but was quite comfortable otherwise, and talkative. Blood pressure 130/70. Pulse 56 and regular. His neck is clear. His anterior chest wall is still sore, but his sternotomy incision is well healed. He has normal heart sounds, good peripheral pulses, no pedal edema. Assessment: Noncardiac chest pain. Anxiety. Plan: I had another long talk with Demarco today. I tried to be reassuring. I did, somewhat reluctantly, give him a prescription for Diazepam 2.5mg, #20, to use sparingly prn, with no refills. I will see him back here in a few months. I don't think he needs to restrict his physical activities. Dictated by: MIKE PARTIDA MD Dictated:: [id number]<Electronically signed by MIKE PARTIDA M.D.> [id number] Transcribed Date: 02/18/15 Transcribed Time: 1230By: Anesthesia Assessment and Plan Anesthesia History Personal History: Other Family History: No Family History of Anesthesia Complications Exercise Tolerance Exercise Tolerance: Metabolic Equivalents>4 Pertinent Negatives Pertinent Negatives: No Symptoms of GERD Cardiac & Pulmonary Exam Cardiac Exam: Normal S1/S2 Heart Sounds Pulmonary Exam: Clear Bilateral Breath Sounds Implantable Cardiac Device Does patient have a Pacemaker or an ICD?: No Airway Exam Known Difficult Airway: No Mallampati Class: 1 Mouth Opening: Normal (> 3cm) Thyromental Distance: Greater than 3 cm Neck Range of Motion: Full ROM Neck Circumference: Normal Teeth Condition: Removable Dentures/Plates Upper ASA Classification ASA Score: ASA 3 Emergency Case?: No NPO Status NPO Status: NPO Clears >2 hours, Solids >8 hours Anesthesia Plan Resuscitation Status: Full Code Anesthesia Technique: MAC Anesthesia Airway Planned: Natural Airway Monitors Used: Standard Monitors
[2022-01-22 08:46] VITALS: BMI 30.9
[2022-01-22] MEDS: Lidocaine 2% Jelly 6 ML SYR (09:00)
[2022-01-22] MEDS: Tetracaine 0.5% 4 ML BTL OD (09:00)
[2022-01-22] MEDS: Povidone-Iodine Ophth 30 ML BTL (09:00)
[2022-01-22] MEDS: Balanced Salt Soln.-PLUS 500 ML BAG (09:06)
[2022-01-22] MEDS: Duovisc Viscoelastic System EACH 1 EACH (09:06)
[2022-01-22] MEDS: Trypan Blue 0.06% 0.5 ML SYR (09:10)
[2022-01-22 09:32] VITALS: BP 121/77; PULSE 65; RESP 16; TEMP 36.3; O2SAT 97
--- NOTE | 2022-01-22 09:33 | W.PM.DSUDISC ---
Discharge Plan Disposition Patient Disposition: HOME Condition: Good Discharge Details Attending Provider: Spencer Melgoza Primary Care Provider: Luigi Rae Home Meds and New Rx's Prescriptions: No Action nitroglycerin 0.4 MG tablet, sublingual 0.4 mg Sublingual PRN Qty: 1 2RF (DME) lancets 1 EACH misc 1 ea Miscellaneous BID Qty: 100 3RF Rx Instructions: FOR ONE TOUCH METER. NO INSULIN. DIAGNOSIS CODE E11.9 (DME) OneTouch Ultra Test 1 EACH strip 1 ea Miscellaneous BID Qty: 100 0RF Rx Instructions: DX: DM--UNCONTROLLED FOR TESTING 2X/DAY OR DIRECTED TO MAINT A1C <7% atorvastatin 80 MG tablet 80 mg PO DAILY Qty: 90 3RF aspirin 81 MG tablet,delayed release (DR/EC) 81 mg PO DAILY Qty: 90 3RF Rx Instructions: take one per day metoprolol tartrate 25 MG tablet 25 mg PO DAILY Qty: 90 3RF glimepiride 4 MG tablet 4 mg PO DAILY Qty: 90 0RF Rx Instructions: take in AM benzonatate [Tessalon Perles] 100 mg capsule 100 mg PO TID PRN0RF guaifenesin [Mucinex] 600 mg tablet extended release 12hr 1,200 mg PO BID Qty: 120 8RF Levemir FlexTouch U-100 Insuln 100 unit/mL (3 mL) insulin pen 28 unit SUBCUT BID 0RF Label Comments: INJECT 28 UNITS SUBCUTANEOUSLY TWICE DAILY DOSE CHANGE Ozempic 0.25 mg or 0.5 mg(2 mg/1.5 mL) pen injector 0.5 mg SUBCUT QWEEK 0RF Label Comments: INJECT 0.5MG SUBCUTANEOUSLY EVERY WEEK FOR 28 DAYS albuterol sulfate 90 mcg/actuation HFA aerosol inhaler 2 puff inhalation Q6H PRN (Reason: shortness of breath or wheezing) Qty: 8.5 1RF Jardiance 10 mg tablet 10 mg PO DAILY 0RF Label Comments: TAKE 1 TABLET BY MOUTH IN THE MORNING Discharge Instructions Stand Alone Forms: Post-op Topical Cataract, Cat Carbajaley (DSU) Discharge Orders Discharge Orders: Discharge Order (Routine); Ordered 01/22/22 Ordered By: Spencer Melgoza DS: Diagnosis Discharge Diagnosis (1) Nuclear sclerotic cataract of right eye: Status: Resolved (2) Posterior subcapsular age-related cataract, right eye: Status: Resolved
--- NOTE | 2022-01-22 09:37 | ROE_ITS ---
Date of service: 01/22/22 Time of Service: 09:37 Operative Note Operative Note DATE OF PROCEDURE: 01/22/22 PRE-OP DIAGNOSIS: Nuclear/posterior subcapsular cataract, right eye Poor red reflex, right eye secondary to dense posterior subcapsular cataract POST-OP DIAGNOSIS: same PROCEDURE: Cataract extraction using phacoemulsification with intraocular lens implantation, right eye, using capsular staining with Vision Blue SURGEON: Spencer Melgoza ANESTHESIA TYPE: Local By Surgeon and MAC Refer to Anesthesia Record PATHOLOGY: none sent COMPLICATIONS: None Patient was transported to: same day Patient's condition: stable Implants: Harshil and Harshil / [employer] Tecnis [id number] Indications: Progressive visual loss due to cataract, right eye Procedure Description: CATARACT SURGERY OPERATIVE REPORT PREOPERATIVE DIAGNOSIS: 1. Nuclear/posterior subcapsular cataract, right eye 2. Poor red reflex secondary to #1 POSTOPERATIVE DIAGNOSIS: Same OPERATION: 1. Cataract extraction using phacoemulsification with posterior chamber intraocular lens implant, right eye. 2. Capsular staining with Vision Blue IOL: IOL Superintendent House/Model: Harshil & Harshil / LANIE Tecnis [id number] IOL Power: + 22.5 diopters IOL Serial Number: [id number] Optic Diameter: 6.0mm Haptic/Overall Diameter: 13.0mm PHACO INFO: Jose De Jesus Trendalyticsurion Vision System with OZil and Active [employer]uidics Cumulative Dispersed Energy (CDE): 12.71 seconds SURGEON: Spencer Melgoza MD, NICOLA ANESTHESIA: Monitored Anesthesia Care (MAC), with local sub-tenon's anesthetic infiltration COMPLICATIONS: None SPECIMENS: None INDICATIONS FOR PROCEDURE: The patient is a 61-year-old male with history of progressive decreased vision in his right eye secondary to development of nuclear and posterior subcapsular cataract. Posterior subcapsular cataract is dense to the degree that he has counting fingers vision. He has previously undergone cataract surgery in the left eye in 2018. The option of cataract surgery was offered to the patient and he wished to proceed. PROCEDURE: The correct surgical eye was identified and marked as the right eye and the pupil was dilated in the preoperative area using mydriatics and cycloplegics. The dilated pupil size was 7.0 mm. Oral sedation was administered in the form of an Imprimis MKO Melt (midazolam 3mg/ketamine 25mg/ondansetron 2mg). The patient was brought to the operating room where cardiopulmonary monitoring was instituted and surgical time-out was performed, confirming the correct operative eye and IOL power. Topical anesthesia was administered and ophthalmic povidone-iodine 5% was instilled into the conjunctival fornices. Lidocaine gel was applied to the cornea and the garland-ocular area was prepped with Betadine 10% solution and draped in the usual sterile fashion for intraocular surgery, including an aperture drape. A Tegaderm transparent film dressing was cut in half and used to cover the lashes and lid margins. Care was taken to sequester the lashes and lid margins under the Tegaderm dressing. A lid speculum was placed between the lids of the operative eye and the operating microscope was maneuvered into position. Benitez scissors were then used to make a conjunctival buttonhole approximately 6mm posterior to the limbus in the inferonasal quadrant. Blunt dissection was carried out to expose bare sclera, and a blunt-tipped sub-tenon?s anesthesia cannula was introduced and passed posteriorly along the globe where non- preserved plain lidocaine was injected into posterior sub-Tenon?s space. A sideport knife was used to make a paracentesis port inferotemporally. Intraocular phenylephrine/lidocaine was injected into the anterior chamber. Air was injected into the anterior chamber, followed by Vision Blue, which was painted over the anterior capsule and then irrigated out with BSS. The anterior chamber was filled with viscoelastic. A 2.4mm keratome knife was used to create a half-thickness groove at the limbus and then to construct a three-plane near- clear corneal tunnel extending 2.0mm into clear cornea superiortemporally. A flap was raised on the anterior capsule and capsulorhexis forceps were used to complete a continuous curvilinear capsulorhexis of 5.0 mm. Balanced salt solution was then used to perform cortical cleaving hydrodissection and nuclear hydrodelineation until the lens could be freely rotated within the capsular bag. The lens nucleus was then disassembled and removed within the capsular bag and iris plane using phacoemulsification. Residual cortical material was removed using the I/A handpiece. The posterior capsule was carefully polished to remove as much residual lens epithelial cells as safely possible. The capsular bag was then inflated and the anterior chamber deepened with viscoelastic. The lens implant described above was inserted into the capsular bag using the LANIE [place] Injector. A Kuglen hook was used to dial the IOL into position. Residual viscoelastic was then removed first from posterior to the IOL, then from the anterior chamber using the I/A handpiece. The lens implant was noted to center nicely within the capsular bag. The incisions were stromally hydrated, and the anterior chamber was reformed using BSS. Then 0.5cc of moxifloxacin 1.0mg/ml were injected into the capsular bag and anterior chamber. The incisions were checked with a Weck spear and found to be secure. Several drops of ophthalmic povidone-iodine 5% were then applied to the eye followed by two drops of Imprimis combination prednisolone/moxifloxacin/nepafenac solution. The drapes were removed and a clear plastic protective eye shield was placed over the eye. The patient was then returned to Same Day Surgery in stable condition.
--- NOTE | 2022-01-22 09:41 | W.ANESPOSTOP ---
Postoperative Evaluation Date, Time and Location Date Performed: 01/22/22 Time Performed: 09:41 Patient Location: Day Surgery Unit Vital Signs Most Recent Imported Vital Signs: Most Recent Vital Signs Temp Pulse Resp BP Pulse Ox 36.3 C L 65 16 121/77 97 01/22/22 09:32 01/22/22 09:32 01/22/22 09:32 01/22/22 09:32 01/22/22 09:32 Pain Score Most Recent Pain Score: Most Recent Pain Score Pain Level 0 01/22/22 09:32 Assessment Mental Status: Awake (Alert & Oriented to Patient Baseline) Airway and Respiratory Function: Patent airway with normal (patient baseline) respiratory exam Cardiovascular Function: Hemodynamically Stable Hydration Status: Adequately Hydrated Nausea & Vomiting: No Nausea or Vomiting Pain: Pt. Denies Any Pain Peripheral Nerve Block: Patient did not receive a nerve block
[2022-01-22 09:59] VITALS: BP 110/78; PULSE 65; RESP 18; TEMP 36.2; O2SAT 95
== END 2022-01-22 10:08 | disposition home or self-care (01) ==
PROVIDERS: PCP Internal Medicine; Visit Provider Ophthalmology
PROC: (CPT 66984; principal; 2022-01-22 09:30)
DX: H25.041 Posterior subcapsular polar age-related cataract, right eye (principal); E11.9 Type 2 diabetes mellitus without complications; Z79.4 Long term (current) use of insulin; J43.9 Emphysema, unspecified; K21.00 Gastro-esophageal reflux disease with esophagitis, without bleeding
CPT/HCPCS: 66984; V2632

== ENCOUNTER 2022-01-30 10:28 | Emergency (ER) | payer MEDICARE, MEDICAID, SELFPAY ==
[2022-01-30] VITALS (7 sets, daily range): BP systolic 108–135; BP diastolic 69–82; PULSE 60–68; RESP 18–23; TEMP 36.2; O2SAT 91–98
--- NOTE | 2022-01-30 10:45 | RT.EKG_ITS ---
APPROVED REPORT Exam: Resting ECG Reason for Exam: rib pain Patient Location: E HR:66 bpm ECG Measurements Heart Rate [address] 200 P 59 QRSd 101 QRS 89 QT 402 T 67 QTc 423 Conclusion Sinus rhythm...normal P axis, V-rate 60- 99 Probable left atrial enlargement...P >50mS, <-0.10mV V1 normal sinus rhtyhm, normal axis, non ischemic
[2022-01-30 11:23] LABS: Abs Immature Grans 0.03 10^3/uL (0.0-0.06); Absolute Basophil Count 0.09 10^3/uL (0.0-0.2); Absolute Eosinophil Count 0.46 10^3/uL (0.0-0.7); Absolute Lymphocyte Count 2.35 10^3/uL (1.2-3.4); Absolute Monocyte Count 0.61 10^3/uL (0.1-0.8); Eosinophils % 5.2; HCT 47.7 % (40.0-50.0); HGB 16.1 g/dL (13.5-17.5); Immature Grans % 0.3; Lymphocytes % 26.6; MCH 31.9 pg (27.0-33.0); MCHC 33.8 % (32.0-36.0); MCV 94.5 fL (80-95); MPV 9.2 fL (8.0-11.0); Monocytes % 6.9; Nucleated RBC 0 %; Platelet Count 346 10^3/uL (130-400); RBC 5.05 10^6/uL (4.36-5.78); RDW 12.4 % (11.8-14.1); WBC 8.84 10^3/uL (4.4-10.8)
[2022-01-30] MEDS: ACETAMINOPHEN 1,000 MG/100 ML BTL 400 MG IVPB (11:23)
--- NOTE | 2022-01-30 11:35 | ED.GENADUL_ITS ---
Discharge Plan Disposition Patient Disposition: HOME Condition: Stable Discharge Details Clinical Impression: Chest wall contusion Primary Care Provider: Luigi Rae ED Provider: Mahsa Wood Home Meds and New Rx's Prescriptions: New lidocaine [Lidoderm] 5 % adhesive patch,medicated 1 patch topical DAILY Qty: 15 0RF Rx Instructions: leave on most painful area for up to 12 hrs Continued nitroglycerin 0.4 MG tablet, sublingual 0.4 mg Sublingual PRN Qty: 1 2RF (DME) lancets 1 EACH misc 1 ea Miscellaneous BID Qty: 100 3RF Rx Instructions: FOR ONE TOUCH METER. NO INSULIN. DIAGNOSIS CODE E11.9 (DME) OneTouch Ultra Test 1 EACH strip 1 ea Miscellaneous BID Qty: 100 0RF Rx Instructions: DX: DM--UNCONTROLLED FOR TESTING 2X/DAY OR DIRECTED TO MAINT A1C <7% atorvastatin 80 MG tablet 80 mg PO DAILY Qty: 90 3RF aspirin 81 MG tablet,delayed release (DR/EC) 81 mg PO DAILY Qty: 90 3RF Rx Instructions: take one per day metoprolol tartrate 25 MG tablet 25 mg PO DAILY Qty: 90 3RF glimepiride 4 MG tablet 4 mg PO DAILY Qty: 90 0RF Rx Instructions: take in AM benzonatate [Tessalon Perles] 100 mg capsule 100 mg PO TID PRN0RF guaifenesin [Mucinex] 600 mg tablet extended release 12hr 1,200 mg PO BID Qty: 120 8RF Levemir FlexTouch U-100 Insuln 100 unit/mL (3 mL) insulin pen 26 unit SUBCUT BID 0RF Label Comments: INJECT 28 UNITS SUBCUTANEOUSLY TWICE DAILY DOSE CHANGE Ozempic 0.25 mg or 0.5 mg(2 mg/1.5 mL) pen injector 0.5 mg SUBCUT QWEEK 0RF Label Comments: INJECT 0.5MG SUBCUTANEOUSLY EVERY WEEK FOR 28 DAYS albuterol sulfate 90 mcg/actuation HFA aerosol inhaler 2 puff inhalation Q6H PRN (Reason: shortness of breath or wheezing) Qty: 8.5 1RF Jardiance 10 mg tablet 10 mg PO DAILY 0RF Label Comments: TAKE 1 TABLET BY MOUTH IN THE MORNING Discharge Instructions Instructions: Contusion in Adults (ED) Additional Instructions: Continue to take febrile I recommend one full inspiration and expiration every hour while awake I am writing you for several tablets of oxycodone, this medication is addictive, you may take it before you retire for the evening You may apply Lidoderm, 12 hours on, 12 hours off should you develop fever, chills, worsening shortness of breath, return to the emergency room for reassessment Referrals: Luigi Rae [Primary Care Provider] - Discharge Data Discharge Date/Time-TO BE ENTERED AT DEPARTURE: 01/30/22 14:[address] scan does not show evidence of acute abnormality Patient given several doses of opiate analgesia he need them Throat. Recommended and reviewed to avoid pneumonia Vitals are stable, alert, oriented, ambulatory Return precautions discussed and patient expressed understanding Medical Records Medical records reviewed: Yes I reviewed the patient's medical records. Lab Data Lab results reviewed: Yes I reviewed the patient's lab results. HPI General Date/Time Provider Initiated Documentation: 01/30/22 10:37 . HPI Narrative: This 61-year-old gentleman presents for report of fall on Saturday. Patient fell forward onto his chest. He denies any head or any neck pain. denies HI. He takes baby aspirin. He denies any current shortness of breath but has significant left upper quadrant and chest pain with any sort of position change or movement. He states he was evaluated at a local hospital and had an x-ray that did not show abnormality. He presents here secondary to 1 symptoms. He has status post CABG and several years ago. He states the pain is largely exacerbated with movement. He denies any sweats. He denies any calf pain or swelling. He denies any nausea or vomiting. Related Data Home Medications Medication Instructions Recorded Confirmed nitroglycerin 0.4 mg sublingual 0.4 mg SUBLINGUAL PRN #1 bottle 01/23/17 01/30/22 tablet lancets 28 gauge #100 ea 03/05/17 01/18/22 blood sugar diagnostic (OneTouch #100 strip 07/02/17 01/18/22 Ultra Test) aspirin 81 mg tablet,delayed 81 mg PO DAILY #90 tab 09/03/17 01/30/22 release atorvastatin 80 mg tablet 80 mg PO DAILY #90 tab-cap 09/03/17 01/30/22 metoprolol tartrate 25 mg tablet 25 mg PO DAILY #90 tab-cap 09/03/17 01/30/22 glimepiride 4 mg tablet 4 mg PO DAILY #90 tab-cap 05/20/18 01/30/22 albuterol sulfate 90 mcg/actuation 2 puff INHALATION Q6H PRN #8.5 g 06/06/21 01/30/22 aerosol inhaler insulin detemir U-100 100 unit/mL 26 unit SUBCUT BID 06/06/21 01/30/22 (3 mL) subcutaneous pen (Levemir FlexTouch U-100 Insulin) semaglutide (Ozempic) 0.5 mg SUBCUT QWEEK 06/06/21 01/30/22 benzonatate 100 mg capsule 100 mg PO TID PRN 07/11/21 01/30/22 (Tessalon Perles) guaifenesin 600 mg tablet, 1,200 mg PO BID #120 tab 11/06/21 01/30/22 extended release 12 hr (Mucinex) empagliflozin 10 mg tablet 10 mg PO DAILY 01/18/22 01/30/22 (Jardiance) lidocaine 5 % topical patch 1 patch TOPICAL DAILY #15 ea 01/30/22 (Lidoderm) Previous Rx's Medication Instructions Recorded aspirin 81 mg tablet,delayed 81 mg PO DAILY #90 tab 09/03/17 release atorvastatin 80 mg tablet 80 mg PO DAILY #90 tab-cap 09/03/17 metoprolol tartrate 25 mg tablet 25 mg PO DAILY #90 tab-cap 09/03/17 glimepiride 4 mg tablet 4 mg PO DAILY #90 tab-cap 05/20/18 albuterol sulfate 90 mcg/actuation 2 puff INHALATION Q6H PRN #8.5 g 06/06/21 aerosol inhaler guaifenesin 600 mg tablet, 1,200 mg PO BID #120 tab 11/06/21 extended release 12 hr (Mucinex) lidocaine 5 % topical patch 1 patch TOPICAL DAILY #15 ea 01/30/22 (Lidoderm) Allergies Allergy/AdvReac Type Severity Reaction Status Date / Time nicotine [From Nicoderm CQ] Allergy Other (See Verified 01/30/22 10:43 Comment) Penicillins Allergy RASH Verified 01/30/22 10:43 lorazepam [From Ativan] AdvReac Severe SEVERE Verified 01/30/22 10:43 AGITATION acetaminophen [From Tylenol] AdvReac Unknown SICK TO Verified 01/30/22 10:43 STOMACH lactose AdvReac Unknown Verified 01/30/22 10:43 General Stated Complaint: Chest/Rib SHAUN: 3 Review of Systems All systems reviewed & are unremarkable except as noted in HPI and below PFSH All Active Problems (Updated 01/30/22 @ 13:30 by WILLIAM Castillo) Chest wall contusion (Acute) Reflux esophagitis (Acute ~09/2021) Gastritis and duodenitis (Acute ~09/2021) Monahan's esophagus (Acute ~09/2021) Anxiety state (Acute 06/15/14) Nondependent alcohol abuse, in remission (Acute 09/25/12) Organic sleep apnea, 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) Traumatic brain injury (Acute 01/05/14) Unable to control anger (Acute 01/05/14) Acid reflux (Chronic) Cough (Acute) Chest pain (Acute) Abdominal muscle strain (Acute) Emphysema lung (Acute) Chronic bronchitis (Acute) Aortocoronary bypass status (Acute 09/25/12) Cor athrscl-uns vessel (Acute 06/02/13) CABG 3v 09/15/12 [facility] cardiology PTCA 08-21-13 GERD (gastroesophageal reflux disease) (Acute 05/20/15) Pure hypercholesterolemia (Acute 09/27/15) Tobacco abuse disorder (Acute 03/27/16) Type II diabetes mellitus (Acute 01/05/14) Medical History (Updated 01/30/22 @ 13:30 by WILLIAM Castillo) Constipation Coronary arteriosclerosis History of anesthesia reaction Pt. states when he is waking up don't stand over him, because I come out swinging Hypertensive disorder Lipoma right hand. Lipoma of abdominal wall Myocardial infarct, old 2014-followed up with cardiology Dr. Mccall 08/2021 [facility] Cardiology Sleep apnea TBI (traumatic brain injury) Transient cerebral ischemia 2019 Umbilical hernia Vertigo pt. denies this Surgical History (Updated 01/22/22 @ 09:34 by Spencer Melgoza MD) Coronary Artery Bypass Grafting (09/01/12) Coronary Stent (08/21/13) [facility] Extraction of cataract (02/10/18) left eye cataract removal with intraocular lens implant. Dr Melgoza H/O esophagogastroduodenoscopy 09/2021 H/O shoulder surgery History of breast biopsy left lipoma History of carotid endarterectomy History of carpal tunnel release History of colonoscopy History of nasal surgery History of removal of testicle Hx of CABG Hx of melanoma excision Testicle removal, left Tonsillectomy and adenoidectomy (~1973) Family History Mother Essential hypertension Personal history of malignant neoplasm Heart disease Father Personal history of malignant neoplasm Heart disease Brother Substance abuse Social History Smoking/Tobacco Use Status: Current every day Tobacco Type: cigarettes Years smoked: 41 Smoking risk assessment performed?: Yes Alcohol Intake: never Drug use: Never Substance use type: does not use Do you feel safe at home: Yes Do you feel safe in your relationship?: Yes Exam Const General: cooperative, comfortable and no acute distress HENMT Head: normal to inspection and no palpable skull fracture Mouth: oral mucosae normal Eyes Pupils: PERRL Neck Other: no midline tenderness Chest Other: No visible sign of trauma, tenderness along sternum, no crepitus Resp Effort & Inspection: normal respiratory effort Auscultation: clear to auscultation bilaterally Cardio Rate: regular rate Rhythm: regular rhythm GI Inspection: normal to inspection Auscultation: normal bowel sounds Other: No tenderness to palpation Skin General skin exam: no rashes or lesions noted Neuro General: patient alert and patient oriented x3 Other: GCS 15, alert and oriented x4 Extrem Other: Distal pulses intact, no calf swelling or tenderness Course Vital Signs Vital signs: Vital Signs Temperature 36.2 C L 01/30/22 10:37 Pulse 68 01/30/22 10:37 Respiratory Rate 21 01/30/22 10:37 Blood Pressure 135/76 01/30/22 10:37 Pulse Oximetry 98 01/30/22 10:37 Temperature 36.2 C L 01/30/22 10:37 Temperature Source Skin 01/30/22 10:37 Pulse 68 01/30/22 10:37 Respiratory Rate 21 01/30/22 10:37 Respiratory Effort 01/30/22 11:26 Respiratory Depth Normal 01/30/22 11:26 Respiratory Pattern Normal 01/30/22 11:26 Blood Pressure 135/76 01/30/22 10:37 Pulse Oximetry 98 01/30/22 10:37 Oxygen Delivery Method Room Air 01/30/22 10:37 Oxygen Flow Rate 0 01/30/22 10:37 Pain Level 7 01/30/22 11:26 Lab/Test Results Lab/Test Results: Laboratory Tests Range/Units 01/30/22 11:10 WBC (4.4-10.8) 10^3/uL 8.84 RBC (4.36-5.78) 10^6/uL 5.05 Hgb (13.5-17.5) g/dL 16.1 Hct (40.0-50.0) % 47.7 MCV (80-95) fL 94.5 MCH (27.0-33.0) pg 31.9 MCHC (32.0-36.0) % 33.8 RDW (11.8-14.1) % 12.4 Plt Count (130-400) 10^3/uL 346 MPV (8.0-11.0) fL 9.2 Immature Gran % 0.3 Neutrophils % 60.0 Lymphocytes % 26.6 Monocytes % 6.9 Eosinophils % 5.2 Basophils % 1.0 Nucleated RBC % % 0 Absolute Neutrophils (1.2-6.7) 10^3/uL 5.30 Absolute Lymphocytes (1.2-3.4) 10^3/uL 2.35 Absolute Monocytes (0.1-0.8) 10^3/uL 0.61 Absolute Eosinophils (0.0-0.7) 10^3/uL 0.46 Absolute Basophils (0.0-0.2) 10^3/uL 0.09
[2022-01-30 11:59] LABS: ALT 13 U/L (16-63); AST 10 U/L (15-37); Albumin 3.9 g/dL (3.4-5.0); Alkaline Phosphatase 84 U/L (46-116); Anion Gap 7.9 mmol/L (3-11); BUN 14 mg/dL (7-18); Bilirubin, Total 0.6 mg/dL (0.2-1.0); CO2 26.1 mmol/L (21.0-32.0); CREATININE 0.8 mg/dL (0.70-1.30); Chloride 106 mmol/L (98-107); Glucose 131 mg/dL (74-106); Lipase 150 U/L (73-393); Potassium 3.9 mmol/L (3.5-5.1); Sodium 140 mmol/L (136-145); Troponin I < 50 ng/L (<or=60)
--- NOTE | 2022-01-30 12:30 | DI.CT_ITS ---
Exam(s) CT CHEST/ABD/PEL W EXAM: CT CHEST/ABD/PEL W CLINICAL HISTORY: trauma, sternal pain, LUQ pain post fall TECHNIQUE: Imaging Protocol: Axial computed tomography images with coronal and sagittal reformatted images were created and reviewed CONTRAST MATERIAL: Intravenous: Omnipaque 350 Contrast volume:100 mL Oral: No COMPARISON: CT CT CHEST LUNG CANCER SCREEN from 10/10/[address] CHEST WO CONTRAST from 01/27/2022 FINDINGS: CHEST: Tracheobronchial tree: Patent where visualized. Pulmonary parenchyma: No consolidation or dominant measurable mass. Emphysematous changes are present in the lungs. Calcified pulmonary nodules and calcified mediastinal lymph nodes are seen consistent with prior granulomatous disease. Visualized thyroid gland: Unremarkable. Mediastinum and Romelia: No dominant adenopathy or fluid collection. The esophagus is unremarkable. Pleura: There is a trace left pleural effusion and small subjacent at infiltrate which probably refle cts atelectasis. No right pleural effusion. No pneumothorax. Heart: The heart is not dilated. Coronary artery calcifications are present. No pericardial effusion . Pulmonary arteries: The pulmonary arteries are not sufficiently opacified for evaluation of pulmonary embolic disease. No central pulmonary embolus is present. Aorta: Thoracic aorta non-dilated. Atherosclerosis. Lymph nodes: Within normal limits. Soft tissues: Unremarkable. Bones:Sternal wires are in place. Age-appropriate degenerative changes are seen in the spine. No di splaced rib fractures are seen. ABDOMEN: Liver: Normal density. No measurable mass. Portal, Superior Mesenteric, and Splenic Veins: Unremarkable. Gallbladder and Biliary Tract: No radiodense calculus or dilation. Pancreas: Normal density, no abnormal calcifications or inflammatory process. Spleen: Normal. Adrenals: No masses seen. Kidneys: Normal size, contour and axis. No radiodense stones or obstructive uropathy. There is a simp le left renal cysts. No follow-up is recommended. Abdominal Aorta: Abdominal portion non-dilated. Atherosclerosis. Bowel: No obstruction or bowel wall thickening. No evidence of appendicitis. Peritoneal Cavity: No ascites, collection or mesenteric inflammatory response. No free air. Lymph Nodes: Within normal limits. Bones: Within normal limits for the patient's age. Soft Tissues: Unremarkable. PELVIS: Bladder: Symmetric distention, no gross wall thickening. Reproductive Organs: Unremarkable as visualized. Lymph Nodes: Within normal limits. Bones: Within normal limits. IMPRESSION: 1. No acute abdominal or pelvic process. 2. Tiny right pleural effusion and subjacent atelectasis. 3. No acute pulmonary process. 4. Results of this exam have been verbally communicated with provider. RADIATION DOSE DELIVERED: 1,316.81mGy.cm Total DLP DATA REPOSITORY: All CT scans at this facility are submitted to the National Radiology Data Registry (NRDR) Dose Index Registry (DIR) with the [employer] (A[employer]). RADIATION OPTIMIZATION: All CT scans at this facility use at least one of these dose optimization te chniques: automated exposure control; mA and/or kV adjustment per patient size (includes targeted exa ms where dose is matched to clinical indication); or iterative reconstruction.
[2022-01-30] MEDS: Omnipaque 350 MG/ML 100 ML BTL IJ (12:34)
== END 2022-01-30 14:02 | disposition home or self-care (01) ==
PROVIDERS: Emergency Provider Physician Assistant; PCP Internal Medicine
DX: S20.212A Contusion of left front wall of thorax, initial encounter (principal); W00.0XXA Fall on same level due to ice and snow, initial encounter; Z95.1 Presence of aortocoronary bypass graft; R10.12 Left upper quadrant pain
CPT/HCPCS: 36415; 74177; 80053; 83690; 93005; 96365; 99285; 71260; 84484; 85025; 93010; 99284; J0131; J3490

== ENCOUNTER 2022-03-31 16:57 | Emergency (ER) | payer MEDICARE, MEDICAID, SELFPAY ==
[2022-03-31 17:09] VITALS: BP 128/78; PULSE 76; RESP 16; TEMP 36.8; O2SAT 98
--- NOTE | 2022-03-31 17:15 | DI.RAD_ITS ---
Exam(s) XR FOOT LT COMPLETE EXAM: XR FOOT LT COMPLETE CLINICAL HISTORY: pain 5th metatarsal. TECHNIQUE: 2D digital imaging was performed. Three views. COMPARISON: No exams were available for comparison FINDINGS: BONES: No acute fracture is present. No bony destructive lesion is seen. Heel spurs. JOINTS: No dislocation present. Mild degenerative changes 1st MTP joint SOFT TISSUE: Normal. IMPRESSION: No acute abnormality. DATA REPOSITORY: RADIATION DOSE DELIVERED:
--- NOTE | 2022-03-31 17:59 | DI.VRAD_ITS ---
PROCEDURE INFORMATION: Exam: XR Left Foot Exam date and time: 03/31/2022 5:47 PM Age: 61 years old Clinical indication: Injury or trauma; Other: Stepped on something; Blunt trauma; Foot; Left TECHNIQUE: Imaging protocol: XR Left foot. Views: 3 or more views. COMPARISON: No relevant images were readily available for comparison purposes. FINDINGS: Bones/joints: No acute fracture or dislocation Soft tissues: Unremarkable IMPRESSION: No acute fracture or dislocation Dictated and Authenticated by: Alex Lemons MD. Ordering:ATIYA Bragg MD
--- NOTE | 2022-03-31 18:17 | ED.GENADUL_ITS ---
Discharge Plan Disposition Patient Disposition: HOME Condition: Stable Discharge Details Clinical Impression: Strain of foot, left Primary Care Provider: Luigi Rae ED Provider: Mahsa Wood Home Meds and New Rx's Prescriptions: Continued nitroglycerin 0.4 MG tablet, sublingual 0.4 mg Sublingual PRN Qty: 1 2RF (DME) lancets 1 EACH misc 1 ea Miscellaneous BID Qty: 100 3RF Rx Instructions: FOR ONE TOUCH METER. NO INSULIN. DIAGNOSIS CODE E11.9 (DME) OneTouch Ultra Test 1 EACH strip 1 ea Miscellaneous BID Qty: 100 0RF Rx Instructions: DX: DM--UNCONTROLLED FOR TESTING 2X/DAY OR DIRECTED TO MAINT A1C <7% atorvastatin 80 MG tablet 80 mg PO DAILY Qty: 90 3RF aspirin 81 MG tablet,delayed release (DR/EC) 81 mg PO DAILY Qty: 90 3RF Rx Instructions: take one per day metoprolol tartrate 25 MG tablet 25 mg PO DAILY Qty: 90 3RF glimepiride 4 MG tablet 4 mg PO DAILY Qty: 90 0RF Rx Instructions: take in AM benzonatate [Tessalon Perles] 100 mg capsule 100 mg PO TID PRN0RF guaifenesin [Mucinex] 600 mg tablet extended release 12hr See Rx Instructions .ROUTE .COMPLEX Qty: 60 0RF Dose Instruction: Take 2 tablets by mouth twice daily Rx Instructions: Take 2 tablets by mouth twice daily Ozempic 0.25 mg or 0.5 mg(2 mg/1.5 mL) pen injector 0.5 mg SUBCUT QWEEK 0RF Label Comments: INJECT 0.5MG SUBCUTANEOUSLY EVERY WEEK FOR 28 DAYS albuterol sulfate 90 mcg/actuation HFA aerosol inhaler 2 puff inhalation Q6H PRN (Reason: shortness of breath or wheezing) Qty: 8.5 1RF lidocaine [Lidoderm] 5 % adhesive patch,medicated 1 patch topical DAILY Qty: 15 0RF Rx Instructions: leave on most painful area for up to 12 hrs Discharge Instructions Additional Instructions: Please follow-up with your primary care physician for reassessment in 1 week pain, recommend repeat x-ray imaging Take ibuprofen and Tylenol as needed for discomfort Return earlier should you have new or worsening complaint HPI General Date/Time Provider Initiated Documentation: 03/31/22 17:26 . HPI Narrative: This 61-year-old gentleman presents with report of left foot injury. Denies any additional complaints at this time. States that he injured his foot when he stepped on a piece of rock or rebar in the driveway. Denies any additional injuries. Denies any strength or sensation change. Related Data Home Medications Medication Instructions Recorded Confirmed nitroglycerin 0.4 mg sublingual 0.4 mg SUBLINGUAL PRN #1 bottle 01/23/17 03/31/22 tablet lancets 28 gauge #100 ea 03/05/17 03/07/22 blood sugar diagnostic (OneTouch #100 strip 07/02/17 03/07/22 Ultra Test) aspirin 81 mg tablet,delayed 81 mg PO DAILY #90 tab 09/03/17 03/31/22 release atorvastatin 80 mg tablet 80 mg PO DAILY #90 tab-cap 09/03/17 03/31/22 metoprolol tartrate 25 mg tablet 25 mg PO DAILY #90 tab-cap 09/03/17 03/31/22 glimepiride 4 mg tablet 4 mg PO DAILY #90 tab-cap 05/20/18 03/31/22 albuterol sulfate 90 mcg/actuation 2 puff INHALATION Q6H PRN #8.5 g 06/06/21 03/31/22 aerosol inhaler semaglutide (Ozempic) 0.5 mg SUBCUT QWEEK 06/06/21 03/31/22 benzonatate 100 mg capsule 100 mg PO TID PRN 07/11/21 03/31/22 (Tessalon Perles) lidocaine 5 % topical patch 1 patch TOPICAL DAILY #15 ea 01/30/22 03/31/22 (Lidoderm) Mucinex 600 mg tablet, extended See Rx Instructions .ROUTE 02/05/22 03/31/22 release (guaifenesin) .COMPLEX #60 tab NS Previous Rx's Medication Instructions Recorded aspirin 81 mg tablet,delayed 81 mg PO DAILY #90 tab 09/03/17 release atorvastatin 80 mg tablet 80 mg PO DAILY #90 tab-cap 09/03/17 metoprolol tartrate 25 mg tablet 25 mg PO DAILY #90 tab-cap 09/03/17 glimepiride 4 mg tablet 4 mg PO DAILY #90 tab-cap 05/20/18 albuterol sulfate 90 mcg/actuation 2 puff INHALATION Q6H PRN #8.5 g 06/06/21 aerosol inhaler lidocaine 5 % topical patch 1 patch TOPICAL DAILY #15 ea 01/30/22 (Lidoderm) Mucinex 600 mg tablet, extended See Rx Instructions .ROUTE 02/05/22 release (guaifenesin) .COMPLEX #60 tab NS Allergies Allergy/AdvReac Type Severity Reaction Status Date / Time nicotine [From Nicoderm CQ] Allergy Other (See Verified 03/31/22 17:13 Comment) Penicillins Allergy RASH Verified 03/31/22 17:13 lorazepam [From Ativan] AdvReac Severe SEVERE Verified 03/31/22 17:13 AGITATION varenicline [From Chantix] AdvReac Mild Headache Verified 03/31/22 17:13 acetaminophen [From Tylenol] AdvReac Unknown SICK TO Verified 03/31/22 17:13 STOMACH lactose AdvReac Unknown Verified 03/31/22 17:13 General Stated Complaint: Orthopedic SHAUN: 4 Review of Systems All systems reviewed & are unremarkable except as noted in HPI and below PFSH All Active Problems (Updated 03/31/22 @ 18:19 by WILLIAM Castillo) Strain of foot, left (Acute) Reflux esophagitis (Acute ~09/2021) Gastritis and duodenitis (Acute ~09/2021) Monahan's esophagus (Acute ~09/2021) Anxiety state (Acute 06/15/14) Nondependent alcohol abuse, in remission (Acute 09/25/12) Organic sleep apnea, 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) Traumatic brain injury (Acute 01/05/14) Unable to control anger (Acute 01/05/14) Acid reflux (Chronic) Cough (Acute) Chest pain (Acute) Abdominal muscle strain (Acute) Emphysema lung (Acute) Chronic bronchitis (Acute) Aortocoronary bypass status (Acute 09/25/12) Cor athrscl-uns vessel (Acute 06/02/13) CABG 3v 09/15/12 [facility] cardiology PTCA 08-21-13 GERD (gastroesophageal reflux disease) (Acute 05/20/15) Pure hypercholesterolemia (Acute 09/27/15) Tobacco abuse disorder (Acute 03/27/16) Type II diabetes mellitus (Acute 01/05/14) Medical History (Updated 03/31/22 @ 18:19 by WILLIAM Castillo) Constipation Coronary arteriosclerosis History of anesthesia reaction Pt. states when he is waking up don't stand over him, because I come out swinging Hypertensive disorder Lipoma right hand. Lipoma of abdominal wall Myocardial infarct, old 2014-followed up with cardiology Dr. Mccall 08/2021 [facility] Cardiology Sleep apnea TBI (traumatic brain injury) Transient cerebral ischemia 2019 Umbilical hernia Vertigo pt. denies this Surgical History (Updated 01/22/22 @ 09:34 by Spencer Melgoza MD) Coronary Artery Bypass Grafting (09/01/12) Coronary Stent (08/21/13) [facility] Extraction of cataract (02/10/18) left eye cataract removal with intraocular lens implant. Dr Melgoza H/O esophagogastroduodenoscopy 09/2021 H/O shoulder surgery History of breast biopsy left lipoma History of carotid endarterectomy History of carpal tunnel release History of colonoscopy History of nasal surgery History of removal of testicle Hx of CABG Hx of melanoma excision Testicle removal, left Tonsillectomy and adenoidectomy (~1973) Family History Mother Essential hypertension Personal history of malignant neoplasm Heart disease Father Personal history of malignant neoplasm Heart disease Brother Substance abuse Social History Smoking/Tobacco Use Status: Current every day Tobacco Type: cigarettes Years smoked: 41 Smoking risk assessment performed?: Yes Alcohol Intake: never Drug use: Never Substance use type: does not use Do you feel safe at home: Yes Do you feel safe in your relationship?: Yes Exam Const General: cooperative, comfortable and no acute distress Extrem Other: left foot pain laterally, no visible sign of trauma, no lateral malleoulus tenderness n/v intact Course Vital Signs Vital signs: Vital Signs Temperature 36.8 C 03/31/22 17:09 Pulse 76 03/31/22 17:09 Respiratory Rate 16 03/31/22 17:09 Blood Pressure 128/78 03/31/22 17:09 Pulse Oximetry 98 03/31/22 17:09 Temperature 36.8 C 03/31/22 17:09 Temperature Source Temporal Artery Scan 03/31/22 17:09 Pulse 76 03/31/22 17:09 Respiratory Rate 16 03/31/22 17:09 Respiratory Effort 03/31/22 17:09 Blood Pressure 128/78 03/31/22 17:09 Blood Pressure Position Sitting 03/31/22 17:09 Pulse Oximetry 98 03/31/22 17:09 Oxygen Delivery Method Room Air 03/31/22 17:09 Oxygen Flow Rate 0 03/31/22 17:09 Pain Level 8 03/31/22 17:09
[2022-03-31 18:32] VITALS: BP 128/78; PULSE 76; RESP 16; TEMP 36.8; O2SAT 98
== END 2022-03-31 18:47 | disposition home or self-care (01) ==
PROVIDERS: Emergency Provider Physician Assistant; PCP Internal Medicine
DX: S96.812A Strain of other specified muscles and tendons at ankle and foot level, left foot, initial encounter (principal); X50.9XXA Other and unspecified overexertion or strenuous movements or postures, initial encounter
CPT/HCPCS: 29515; 99283; 73630

== ENCOUNTER → 2022-05-22 09:06 | Outpatient (BNVA) | payer MEDICARE, MEDICAID, SELFPAY | PROVIDERS: PCP Internal Medicine; Referring Provider Internal Medicine; Visit Provider Surgery | DX: E11.9 Type 2 diabetes mellitus without complications (principal); Z87.442 Personal history of urinary calculi; K62.5 Hemorrhage of anus and rectum; K59.00 Constipation, unspecified; K21.9 Gastro-esophageal reflux disease without esophagitis; R35.0 Frequency of micturition; R32 Unspecified urinary incontinence | CPT/HCPCS: 99213 ==

== ENCOUNTER 2022-05-22 18:29 | Outpatient (REF) | payer MEDICARE, MEDICAID, SELFPAY ==
[2022-05-22 10:07] LABS: Bilirubin Negative (Negative); Blood Trace-intact (Negative); Clarity Clear (Clear); Glucose >=1000 mg/dL (Negative); Ketones Negative (Negative); Leukocyte Esterase Negative (Negative); Nitrite Negative (Negative); Urobilinogen 0.2 EU/dL (Up TO 0.2)
[2022-05-22 10:15] LABS: Bacteria Negative HPF (Negative); C & S Indicated? No; Casts Negative LPF (Negative); Crystals Negative HPF (Negative); Epithelial Cells Negative HPF (Negative); Mucus Negative (Negative); WBC 0-2 HPF (0-5)
== END 2022-05-22 18:30 | disposition home or self-care (01) ==
LOC: LBN 18:29
PROVIDERS: PCP Internal Medicine; Visit Provider Surgery
DX: R82.998 Other abnormal findings in urine (principal)
CPT/HCPCS: 81003; 81015

== ENCOUNTER → 2022-06-01 10:32 | Outpatient (BNVA) | payer MEDICARE, MEDICAID, SELFPAY | PROVIDERS: PCP Internal Medicine; Referring Provider Internal Medicine; Visit Provider Urology | DX: Z87.891 Personal history of nicotine dependence (principal); R31.29 Other microscopic hematuria; R35.0 Frequency of micturition; R32 Unspecified urinary incontinence | CPT/HCPCS: 99215 ==

== ENCOUNTER 2022-06-19 14:53 | Outpatient (REF) | payer MEDICARE, MEDICAID, SELFPAY ==
[2022-06-19 13:26] LABS: Source Nasal/Nares
[2022-06-19 16:20] LABS: COVID-19 PCR Negative (Negative)
== END 2022-06-19 14:54 | disposition home or self-care (01) ==
LOC: LBN 14:53
PROVIDERS: PCP Internal Medicine; Visit Provider Urology
DX: Z20.822 Contact with and (suspected) exposure to COVID-19 (principal); Z01.818 Encounter for other preprocedural examination
CPT/HCPCS: 87635

== ENCOUNTER 2022-06-21 07:55 | Day surgery (SDC) | payer MEDICARE, MEDICAID, SELFPAY ==
[2022-06-21] VITALS (8 sets, daily range): BP systolic 94–132; BP diastolic 54–84; PULSE 57–62; RESP 16–20; TEMP 36.1–36.6; O2SAT 96–99; BMI 28.4
--- NOTE | 2022-06-21 08:22 | W.ANESPRE ---
General Info Date of Service Date Performed: 06/21/22 Height: 5 ft 8 in Weight: 84.8 kg Body Mass Index (BMI): 28.4 Surgical Procedure: Operation Date: 06/21/22 09:40 Proposed Procedure Side Surgeon p Cystoscopy/Retrograde Pyelogram Bilateral Harvey Finley MD s Possible Transurethral Resection Bladder Tumor Harvey Finley MD Meds Allergies and Home Medications Allergies Allergy/AdvReac Type Severity Reaction Status Date / Time nicotine [From Nicoderm CQ] Allergy Other (See Verified 06/21/22 08:23 Comment) Penicillins Allergy RASH Verified 06/21/22 08:23 lorazepam [From Ativan] AdvReac Severe SEVERE Verified 06/21/22 08:23 AGITATION varenicline [From Chantix] AdvReac Mild Headache Verified 06/21/22 08:23 acetaminophen [From Tylenol] AdvReac Unknown SICK TO Verified 06/21/22 08:23 STOMACH lactose AdvReac Unknown Verified 06/21/22 08:23 Home Medication Medication Instructions Recorded nitroglycerin 0.4 mg sublingual 0.4 mg sublingual PRN ##1 01/23/17 tablet lancets 28 gauge #100 ea 03/05/17 blood sugar diagnostic (OneTouch #100 strips 07/02/17 Ultra Test strips) aspirin 81 mg tablet,delayed 81 mg PO DAILY #90 tabs 09/03/17 release metoprolol tartrate 25 mg tablet 25 mg PO DAILY #90 tab-caps 09/03/17 semaglutide 0.25 mg or 0.5 mg (2 0.5 mg subcut QWEEK 06/06/21 mg/1.5 mL) subcutaneous pen injector (Ozempic) benzonatate 100 mg capsule 100 mg PO TID PRN 07/11/21 (Tessalon Perles) insulin detemir U-100 100 unit/mL 18 unit subcut QHS 05/22/22 (3 mL) subcutaneous pen (Levemir FlexTouch U-100 Insulin) polyethylene glycol 3350 17 gram 17 g PO DAILY #30 ea 05/22/22 oral powder packet albuterol sulfate 90 mcg/actuation 2 puff inhalation Q6H PRN 06/12/22 aerosol inhaler (ProAir HFA) shortness of breath or wheezing #8.5 grams atorvastatin 80 mg tablet 80 mg PO DAILY 06/20/22 empagliflozin 10 mg tablet 10 tab PO DAILY 06/20/22 (Jardiance) Current Visit Medications: Current Medications Generic Name Dose Route Start Last Admin Trade Name Gigi PRN Reason Stop Dose Admin Ringer's Solution 1,000 mls @ 80 mls/hr 06/21/22 06:00 IV 07/20/22 23:59 INFUSION MIAH Gentamicin Sulfate 160 mg/ 104 mls @ 208 mls/hr 06/21/22 06:00 Sodium Chloride IVPB 06/21/22 18:00 PREOP MIAH IV Miscellaneous Supplies 1 each 06/21/22 06:00 Iv Access IV 07/20/22 23:59 DIRECTED MIAH Sodium Chloride 0 ml 06/21/22 06:00 Normal Saline Flush 10 Ml Syr IV 07/20/22 23:59 PRN PRN Sodium Chloride 0 ml 06/21/22 06:00 Normal Saline 10 Ml Vial IJ 07/20/22 23:59 DIRECTED PRN Sterile Water 0 ml 06/21/22 06:00 Water,Injection,Sterile 10 Ml Vial IJ 07/20/22 23:59 DIRECTED PRN PFSH Active Problems Active Problems: Problem Status Onset Code Aortocoronary bypass status 09/25/12 Z95.1 Cor athrscl-uns vessel 06/02/13 I25.10 Organic sleep apnea, unspecified 12/03/12 G47.30 Tobacco abuse disorder 03/27/16 Z72.0 Traumatic brain injury 01/05/14 [id number] Unable to control anger 01/05/14 R45.4 Type II diabetes mellitus 01/05/14 E11.9 Chest pain R07.9 Emphysema lung J43.9 Chronic bronchitis J42 Microscopic hematuria R31.29 Medical History Medical History Abdominal muscle strain Acid reflux Anxiety state (06/15/14) Monahan's esophagus (~09/2021) Constipation Coronary arteriosclerosis Cough Frequent urination Gastritis and duodenitis (~09/2021) GERD (gastroesophageal reflux disease) (05/20/15) History of anesthesia reaction Pt. states when he is waking up don't stand over him, because I come out swinging Hypertensive disorder Lipoma right hand. Lipoma of abdominal wall Myocardial infarct, old 2014-followed up with cardiology Dr. Mccall 08/2021 [facility] Cardiology Nondependent alcohol abuse, in remission (09/25/12) Pure hypercholesterolemia (09/27/15) Reflux esophagitis (~09/2021) Sleep apnea TBI (traumatic brain injury) Transient cerebral ischemia 2019 Umbilical hernia Urinary incontinence Vertigo pt. denies this Medical History Comments:: pt. stated his father didn't wake up after anesthesia (over 30 years ago) Surgical History Surgical History Coronary Artery Bypass Grafting (09/01/12) Coronary Stent (08/21/13) [facility] Extraction of cataract (02/10/18) left eye cataract removal with intraocular lens implant. Dr Melgoza H/O esophagogastroduodenoscopy 09/2021 H/O shoulder surgery History of breast biopsy left lipoma History of carotid endarterectomy History of carpal tunnel release History of colonoscopy History of nasal surgery History of removal of testicle (L) Hx of CABG Hx of melanoma excision Nuclear sclerotic cataract of right eye Posterior subcapsular age-related cataract, right eye Status post surgical removal of malignant neoplasm of skin (L) arm 5 location of melanoma removal Testicle removal, left Tonsillectomy and adenoidectomy (~1973) Tobacco Smoking/Tobacco Use Status: Current every day Tobacco Type: cigarettes Smoking cigarettes per day: 8 Years smoked: 41 Smoking pack-years: 10.25 Alcohol Alcohol Intake: never Substance Use Substance use: Never Substance use type: does not use Vital Signs and Lab Results Vital Signs Most Recent Vital Signs in EMR: Most Recent Vital Signs Temp Pulse Resp BP Pulse Ox 36.4 C L 62 19 110/66 98 06/21/22 08:08 06/21/22 08:08 06/21/22 08:08 06/21/22 08:08 06/21/22 08:08 Lab Results Blood Type / Crossmatch: No Data to Display Complete Blood Count: No Data to Display Complete Metabolic Panel: No Data to Display Liver Function Panel: No Data to Display Coagulation Panel: No Data to Display Cardiac Panel: No Data to Display Arterial Blood Gas: No Data to Display Venous Blood Gas: No Data to Display Pancreas Panel: No Data to Display Thyroid Panel: No Data to Display Infectious Disease: Coronavirus (COVID-19)(PCR) Negative (Negative) 06/19/22 10:00 Coronavirus 2019 Source Nasal/Nares 06/19/22 10:00 Blood Cultures: No Data to Display Toxicology Panel: No Data to Display Imaging and Studies Imaging and Studies Study information below may be from another EMR and interpreted by another provider. Please see original notes in EMR for more complete details. EKG Summary: DATE/TIME OF SERVICE: 06/18/21 1002 : 1960PERFORMING LOCATION: ER APPROVED REPORT Exam: Resting ECG Reason for Exam: chest discomfort Patient Location: E HR:69 bpm ECG Measurements Heart Rate 69 AXIS RI 208 P 54 QRSd 104 QRS 95 QT 409 T63 QTc 438 Conclusion Sinus rhythm...normal P axis, V-rate 60- 99 Probable left atrial enlargement...P >50mS, <-0.10mV V1 Right axis deviation...QRS axis ( 91,269). Stress Test Summary: Date of study: 07/04/2015 *PATIENT PRESENTATION* Height: 172.7cm (68in ) Blood Pressure: Weight: 91.8kg (202lb ) BSA: 2.13m^2 Ordering physician: Mike Partida MD Impressions: Normal perfusion by Tc99m Sestamibi [facility]. Echocardiogram Summary: Date of study: 07/03/2016 Transthoracic Echocardiography M-mode, complete 2D, complete spectral Doppler, and color Doppler *STUDY CONCLUSIONS* Summary: 1. Left ventricle: The cavity size was normal. Wall thickness was increased in a pattern of mild LVH. Systolic function was normal. The estimated ejection fraction was 55-60%. Although no diagnostic regional wall motion abnormality was identified, this possibility cannot be completely excluded on the basis of this study. 2. Aortic valve: There was a small, 1.0cm (L) x 0.5cm (W), pedunculated, calcified, mobilemass on the aortic aspect of the noncoronary cusp. 3. Mitral valve: Mild thickening, consistent with myxomatous proliferation. 4. Right ventricle: The cavity size was normal. Wall thickness was normal. Systolic function was normal. Carotid Artery Summary:: Date of Exam: 04/11/15Sex: M : 1960Age: 54 Exam(s) [id number] US:Carotid SYMPTOMS/DIAGNOSIS: DIZZINESS, 780.4 CAROTID ULTRASOUND: Routine examination. No priors. There is mild atherosclerosis bilaterally. No hemodynamically significant velocity elevations are present. The vertebral arteries are antegrade. IMPRESSION: No evidence of hemodynamically significant cervical carotid artery stenosis. Please refer to the cerebrovascular evaluation worksheet for complete details. Pulmonary Function Summary: Date of service: 07/18/21 Time of Service: 10:36 Pulmonary Function Test Result Requesting Provider Bennett Sow Spirometry: There is no airflow limitation. There is no significant bronchodilator response. Impression Normal spirometry Clinical Correlation therefore is recommended. Other Study Summary:: February 17, 2015 Dear Mary: I saw Demarco Kirkland back in the Cardiology office today. I think you are familiar with Demarco's ongoing chest pain situation. He underwent coronary artery bypass surgery two years ago, but has had continued atypical, almost constant, chest discomfort ever since, which is probably some sort of chest wall phenomenon. He is under [id number] emotional stress, and he thinks that is exacerbating his chest discomfort, which is probably true. He frets about it constantly. Somehow, this does not prevent him from being physically active. 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 Medications: Ranitidine. Amlodipine 2.5mg daily. Metoprolol tartrate 25mg BID. Lasix 10mg daily. Atorvastatin 80mg daily. Objective: On examination, he was pleasant, complaining of some chest discomfort, but was quite comfortable otherwise, and talkative. Blood pressure 130/70. Pulse 56 and regular. His neck is clear. His anterior chest wall is still sore, but his sternotomy incision is well healed. He has normal heart sounds, good peripheral pulses, no pedal edema. Assessment: Noncardiac chest pain. Anxiety. Plan: I had another long talk with Demarco today. I tried to be reassuring. I did, somewhat reluctantly, give him a prescription for Diazepam 2.5mg, #20, to use sparingly prn, with no refills. I will see him back here in a few months. I don't think he needs to restrict his physical activities. Dictated by: MIKE PARTIDA MD Dictated:: [id number]<Electronically signed by MIKE PARTIDA M.D.> [id number] Transcribed Date: 02/18/15 Transcribed Time: 1230By: Anesthesia Assessment and Plan Anesthesia History Personal History: No History of Anesthesia Complications Family History: Other Exercise Tolerance Exercise Tolerance: Metabolic Equivalents>4 Pertinent Negatives Pertinent Negatives: Other (Active gerd symptoms) Cardiac & Pulmonary Exam Cardiac Exam: Normal S1/S2 Heart Sounds Pulmonary Exam: Clear Bilateral Breath Sounds Implantable Cardiac Device Does patient have a Pacemaker or an ICD?: No Airway Exam Known Difficult Airway: No Mallampati Class: 1 Mouth Opening: Normal (> 3cm) Thyromental Distance: Greater than 3 cm Neck Range of Motion: Full ROM Neck Circumference: Normal Teeth Condition: Removable Dentures/Plates Upper ASA Classification ASA Score: ASA 3 Emergency Case?: No NPO Status NPO Status: NPO Clears >2 hours, Solids >8 hours Anesthesia Plan Resuscitation Status: Full Code Anesthesia Technique: General Anesthesia Airway Planned: Endotracheal Tube Monitors Used: Standard Monitors
[2022-06-21] MEDS: Lactated Ringers 1,000 ML 80 ML IV (08:39)
--- NOTE | 2022-06-21 09:15 | DI.RAD_ITS ---
Exam(s) XR RETROGRADE IN OR EXAM: XR RETROGRADE IN OR CLINICAL HISTORY: Microscopic hematuria:. TECHNIQUE: 2D digital imaging was performed. COMPARISON: No exams were available for comparison FINDINGS: Fluoroscopy was provided during bilateral retrograde pyelogram study performed by the urologist. Please see procedure report report for details. Total clipped of dose 4.678mGy IMPRESSION: DATA REPOSITORY: RADIATION DOSE DELIVERED:
--- NOTE | 2022-06-21 09:20 | W.PM.HP.N ---
Date of service: 06/21/22 Time of Service: 09:20 Assessment and Plan Assessment and plan (1) Microscopic hematuria: Status: Acute Assessment and plan: We will plan on completing his hematuria workup with a cystoscopy and bilateral retrograde pyelogram. We will be prepared to do a TURBT if any abnormality is identified. History of Present Illness History of Present Illness Chief Complaint: Microscopic hematuria Narrative: This is a 62-year-old gentleman who was referred by Dr. Ortiz.? The patient describes urinary frequency, urgency and urgency incontinence.? The symptoms have been present for about 2 to 3 months.? As part of his evaluation, he had a urinalysis taken.? Microscopic hematuria with 3-5 red blood cells per high-power field have been identified. The patient admits that he does occasionally see evidence of blood in the toilet after he voids.? He will have discomfort right at the beginning of his urinary stream but then the discomfort resolves as his flow begins.? His symptoms are only present during the daytime hours.? He only gets up once a night to void and never has incontinent episodes overnight. He has no history of urinary retention or urinary tract infections.? He has had a left orchiectomy but no other surgeries on his urinary tract. He is a smoker since the age of 14.? He currently is smoking less than 1 pack of cigarettes per day.? He does have a family history of multiple cancers including prostate cancer in his father. Review of Systems Narrative: No fevers or chills No vision change or dysphasia Hx diabetes. No thyroid dysfunction Hx COPD and sleep apnea. No hemoptysis Hx CABG. No chest pain or palpitations c/o indigestion. Blood in stool. No hepatitis, ulcers or jaundice Hx traumatic brain injury. No seizures, strokes or peripheral neuropathy No bleeding disorders or anemia No gout PFSH All Active Problems Aortocoronary bypass status (Acute 09/25/12) Cor athrscl-uns vessel (Acute 06/02/13) CABG 3v 09/15/12 [facility] cardiology PTCA 08-21-13 Organic sleep apnea, 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) Tobacco abuse disorder (Acute 03/27/16) Traumatic brain injury (Acute 01/05/14) Unable to control anger (Acute 01/05/14) Type II diabetes mellitus (Acute 01/05/14) Chest pain (Acute) Emphysema lung (Acute) Chronic bronchitis (Acute) Microscopic hematuria (Acute) Medical History Abdominal muscle strain Acid reflux Anxiety state (06/15/14) Monahan's esophagus (~09/2021) Constipation Coronary arteriosclerosis Cough Frequent urination Gastritis and duodenitis (~09/2021) GERD (gastroesophageal reflux disease) (05/20/15) History of anesthesia reaction Pt. states when he is waking up don't stand over him, because I come out swinging Hypertensive disorder Lipoma right hand. Lipoma of abdominal wall Myocardial infarct, old 2014-followed up with cardiology Dr. Mccall 08/2021 [facility] Nondependent alcohol abuse, in remission (09/25/12) Pure hypercholesterolemia (09/27/15) Reflux esophagitis (~09/2021) Sleep apnea TBI (traumatic brain injury) Transient cerebral ischemia 2019 Umbilical hernia Urinary incontinence Vertigo pt. denies this Surgical History Coronary Artery Bypass Grafting (09/01/12) Coronary Stent (08/21/13) [facility] Extraction of cataract (02/10/18) left eye cataract removal with intraocular lens implant. Dr Melgoza H/O esophagogastroduodenoscopy 09/2021 H/O shoulder surgery History of breast biopsy left lipoma History of carotid endarterectomy History of carpal tunnel release History of colonoscopy History of nasal surgery History of removal of testicle (L) Hx of CABG Hx of melanoma excision Nuclear sclerotic cataract of right eye Posterior subcapsular age-related cataract, right eye Status post surgical removal of malignant neoplasm of skin (L) arm 5 location of melanoma removal Testicle removal, left Tonsillectomy and adenoidectomy (~1973) Family History Mother Essential hypertension Personal history of malignant neoplasm Heart disease Father Personal history of malignant neoplasm Heart disease Brother Substance abuse Social History Smoking/Tobacco Use Status: Current every day Tobacco Type: cigarettes Years smoked: 41 Smoking risk assessment performed?: Yes Alcohol Intake: never Drug use: Never Substance use type: does not use Do you feel safe at home: Yes Do you feel safe in your relationship?: Yes Meds Allergies and Home Medications Allergies Allergy/AdvReac Type Severity Reaction Status Date / Time nicotine [From Nicoderm CQ] Allergy Other (See Verified 06/21/22 08:23 Comment) Penicillins Allergy RASH Verified 06/21/22 08:23 lorazepam [From Ativan] AdvReac Severe SEVERE Verified 06/21/22 08:23 AGITATION varenicline [From Chantix] AdvReac Mild Headache Verified 06/21/22 08:23 acetaminophen [From Tylenol] AdvReac Unknown SICK TO Verified 06/21/22 08:23 STOMACH lactose AdvReac Unknown Verified 06/21/22 08:23 Home Medications Medication Instructions Recorded Confirmed Type nitroglycerin 0.4 mg sublingual 0.4 mg sublingual PRN ##1 01/23/17 06/20/22 History tablet lancets 28 gauge #100 ea 03/05/17 06/20/22 History blood sugar diagnostic (OneTouch #100 strips 07/02/17 06/20/22 History Ultra Test strips) aspirin 81 mg tablet,delayed 81 mg PO DAILY #90 tabs 09/03/17 06/21/22 Rx release metoprolol tartrate 25 mg tablet 25 mg PO DAILY #90 tab-caps 09/03/17 06/21/22 Rx semaglutide 0.25 mg or 0.5 mg (2 0.5 mg subcut QWEEK 06/06/21 06/21/22 History mg/1.5 mL) subcutaneous pen injector (Ozempic) benzonatate 100 mg capsule 100 mg PO TID PRN 07/11/21 06/21/22 History (Tessalon Perles) insulin detemir U-100 100 unit/mL 18 unit subcut QHS 05/22/22 06/21/22 History (3 mL) subcutaneous pen (Levemir FlexTouch U-100 Insulin) polyethylene glycol 3350 17 gram 17 g PO DAILY #30 ea 05/22/22 06/21/22 Rx oral powder packet albuterol sulfate 90 mcg/actuation 2 puff inhalation Q6H PRN 06/12/22 06/21/22 Rx aerosol inhaler (ProAir HFA) shortness of breath or wheezing #8.5 grams atorvastatin 80 mg tablet 80 mg PO DAILY 06/20/22 06/21/22 History empagliflozin 10 mg tablet 10 tab PO DAILY 06/20/22 06/21/22 History (Jardiance) Exam Const General: cooperative Neck Neck: supple Resp Effort & Inspection: normal respiratory effort Auscultation: diminished lung sounds Cardio Rate: regular rate Rhythm: regular rhythm GI Palpation: soft and no masses Neuro General: patient alert, patient awake and patient oriented x3 Results Last Vital Signs Temp 36.4 C L 06/21/22 08:08 Pulse 62 06/21/22 08:08 Resp 19 06/21/22 08:08 BP 110/66 06/21/22 08:08 Pulse Ox 98 06/21/22 08:08
[2022-06-21] MEDS: GENTAMICIN 160 MG in Normal Saline 100 ML 208 MG IVPB (09:45)
[2022-06-21] MEDS: Lidocaine 2% Jelly 6 ML SYR (10:02)
[2022-06-21] MEDS: Omnipaque 300 MG/ML 50 ML BTL (10:05)
--- NOTE | 2022-06-21 10:11 | PAPNONF_PTH ---
PATIENT: Demarco Kirkland LOC: [facility] U#:[id number] AGE/SX: 62/M ROOM: RE06/21/[address]: Harvey Finley MD : 1960 BED: DIS: 06/21/2022 SPEC #: [id number] RECD: 06/21/22 12:51 STATUS: DENIA RELenny #: [id number] BO: 06/21/22 10:[address]: Harvey Finley DEPT: [facility] Cytology RECD BY: Mahsa Velez ENTERED: 06/21/22 12:51 SP TYPE: MICHELLE TINSLEY DR: Luigi Rae Tissues: 1 - BODY FLUID CYTO(SPUTUM/URINE)[facility] Procedures: BODY FLUID CYTO(URINE/SPUTUM) Comments: [id number] (TOTAL VOLUME = 60 ml, SENT FRESH)
--- NOTE | 2022-06-21 10:12 | URETHRABX_PTH ---
PATIENT: Demarco Kirkland LOC: [facility] U#:[id number] AGE/SX: 62/M ROOM: RE06/21/[address]: Harvey Finley MD : 1960 BED: DIS: 06/21/2022 SPEC #: [id number] RECD: 06/21/22 12:37 STATUS: DENIA REQ #: [id number] BO: 06/21/22 10:[address]: Harvey Finley DEPT: Surgical Specimen RECD BY: Mahsa Velez ENTERED: 06/21/22 12:38 SP TYPE: URETHRABX OTHR DR: Luigi Rae Tissues: 1 - URETHRA BIOPSY Procedures: GROSS AND MICRO LEVEL 4 Comments: [id number]
--- NOTE | 2022-06-21 10:19 | W.PM.DSUDISC ---
Discharge Plan Disposition Patient Disposition: HOME Condition: Good Discharge Details Reason For Visit: hematuria Attending Provider: Harvey Finley Primary Care Provider: Luigi Rae Home Meds and New Rx's Prescriptions: No Action albuterol sulfate [ProAir HFA] 90 mcg/actuation HFA aerosol inhaler 2 puff inhalation Q6H PRN (Reason: shortness of breath or wheezing) Qty: 8.5 12RF Levemir FlexTouch U-100 Insuln 100 unit/mL (3 mL) insulin pen 18 unit subcut QHS polyethylene glycol 3350 17 gram powder in packet 17 g PO DAILY Qty: 30 5RF Rx Instructions: May increase to 2 x a day as needed nitroglycerin 0.4 MG tablet, sublingual 0.4 mg Sublingual PRN Qty: 1 (DME) lancets 1 EACH misc 1 ea Miscellaneous BID Qty: 100 Rx Instructions: FOR ONE TOUCH METER. NO INSULIN. DIAGNOSIS CODE E11.9 (DME) OneTouch Ultra Test 1 EACH strip 1 ea Miscellaneous BID Qty: 100 Rx Instructions: DX: DM--UNCONTROLLED FOR TESTING 2X/DAY OR DIRECTED TO MAINT A1C <7% aspirin 81 MG tablet,delayed release (DR/EC) 81 mg PO DAILY Qty: 90 3RF Rx Instructions: take one per day metoprolol tartrate 25 MG tablet 25 mg PO DAILY Qty: 90 3RF benzonatate [Tessalon Perles] 100 mg capsule 100 mg PO TID PRN Ozempic 0.25 mg or 0.5 mg(2 mg/1.5 mL) pen injector 0.5 mg SUBCUT QWEEK Label Comments: INJECT 0.5MG SUBCUTANEOUSLY EVERY WEEK FOR 28 DAYS atorvastatin 80 mg tablet 80 mg PO DAILY Label Comments: TAKE 1 TABLET BY MOUTH ONCE DAILY FOR 90 DAYS Jardiance 10 mg tablet 10 tab PO DAILY Label Comments: TAKE 1 TABLET BY MOUTH IN THE MORNING FOR 90 DAYS Discharge Instructions Additional Instructions: Followup 2 weeks for pathology results Activity:: Activity as Tolerated Shower/Bathe:: 24 hours Diet:: As Tolerated Discharge Orders Discharge Orders: Discharge Order (Routine); Ordered 06/21/22 Ordered By: Havrey Finley DS: Diagnosis Discharge Diagnosis (1) Microscopic hematuria: Status: Acute
--- NOTE | 2022-06-21 10:22 | W.PM.OP ---
Date of service: 06/21/22 Time of Service: 10:22 Operative Note Operative Note DATE OF PROCEDURE: 06/21/22 PRE-OP DIAGNOSIS: Hematuria PROCEDURE: cystoscopy, bilateral retrograde pyelogram, bladder washing for cytology, TUR biopsy of prostatic urethra SURGEON: Harvey Finley ANESTHESIA TYPE: General LMA/ETT Refer to Anesthesia Record ESTIMATED BLOOD LOSS: 5 PATHOLOGY: other (1. Bladder washing for cytology 2. Prostatic urethra biopsy) COMPLICATIONS: None Patient was transported to: PACU Patient's condition: stable Implants: none Indications: This is a 62-year-old gentleman who has been complaining of urinary frequency, urgency and dysuria for less than 6 months time. As part of his evaluation, he was found to have 3-5 red blood cells per high-power field in his urine. He has had a normal noncontrast study of his kidneys. He presents for cystoscopy with retrograde pyelogram to complete his hematuria work-up. Findings: Multiple small stones visible in the the prostatic mucosa Procedure Description: The patient was given a dose of antibiotics and brought to the operating room on 06/21/2022. After successful induction of general anesthesia with intubation, he was placed in the dorsal lithotomy position. His genitalia was prepped and draped sterilely. 2% Xylocaine jelly was instilled into the urethra to act as a local anesthetic. A 22 Mexican rigid cystoscope was then passed through the urethra into the bladder. The urethra and bladder were inspected with a 30 degree lens. The pendulous, bulbar and membranous urethra all appeared normal with no strictures. The prostatic urethra showed some lateral lobe enlargement. The prostatic urethral mucosa showed multiple small black implants that appeared to be just in the mucosal surface. Clinically, these have the appearance of a very small stone particle. The bladder neck was entered and the bladder mucosa was inspected. Both ureteral orifices appeared normal. No blood was seen coming from either side. Each orifice was cannulated with a 6 Mexican access catheter. Retrograde films were obtained by injecting Omnipaque through the access catheter under fluoroscopic guidance. No persistent filling defects were seen. Both kidneys drained promptly on a 5-minute drainage film. The remainder the bladder was reinspected using both a 30 and a 70 degree lens. No specific papillary or nodular bladder lesions were identified. We decided to obtain a urine cytology, so we irrigated the cystoscope using saline and sent the bladder washings to the laboratory for cytology. Because of the appearance of the patient's prostatic urethra and the patient's symptoms, I elected to take a transurethral biopsy of the prostatic mucosa. This was done using an [facility] resectoscope. The biopsy was taken at the 12 o'clock position. The biopsy was then sent to pathology for permanent section. The patient tolerated the procedure well with no complications. Further recommendations will be based upon his pathology results. He was taken to the recovery room in stable condition.
--- NOTE | 2022-06-21 11:16 | W.ANESPOSTOP ---
Postoperative Evaluation Date, Time and Location Date Performed: 06/21/22 Time Performed: 11:16 Patient Location: PACU Vital Signs Most Recent Imported Vital Signs: Most Recent Vital Signs Temp Pulse Resp BP Pulse Ox 36.6 C 58 L 20 107/63 97 06/21/22 11:05 06/21/22 11:05 06/21/22 11:05 06/21/22 11:05 06/21/22 11:05 Pain Score Most Recent Pain Score: Most Recent Pain Score Pain Level 0 06/21/22 08:08 Assessment Mental Status: Arousable with meaningful communication Airway and Respiratory Function: Patent airway with normal (patient baseline) respiratory exam Cardiovascular Function: Hemodynamically Stable Hydration Status: Adequately Hydrated Nausea & Vomiting: No Nausea or Vomiting Pain: Pt. Denies Any Pain Peripheral Nerve Block: Patient did not receive a nerve block Postoperative Comments:: Pt. woke up well. No combative episodes.
[2022-06-21] MEDS: Phenazopyridine 200 MG TAB PO (11:35)
== END 2022-06-21 12:10 | disposition home or self-care (01) ==
PROVIDERS: PCP Internal Medicine; Visit Provider Urology
PROC: (CPT 74450; principal; 2022-06-21 09:30)
PROC: 0TBB8ZZ Excision of Bladder, Via Natural or Artificial Opening Endoscopic (ICD-10-PCS; CPT 52204; 2022-06-21 09:30)
DX: R31.29 Other microscopic hematuria (principal); E11.9 Type 2 diabetes mellitus without complications; I10 Essential (primary) hypertension; I25.10 Atherosclerotic heart disease of native coronary artery without angina pectoris; F17.210 Nicotine dependence, cigarettes, uncomplicated; R35.0 Frequency of micturition; R30.0 Dysuria; R39.15 Urgency of urination
CPT/HCPCS: 52204; 52005; 88305; 74420; 88104; J1100; J1580; J1885; J2250; J2405; Q9967

== ENCOUNTER → 2022-06-22 14:09 | Outpatient (BNVA) | payer MEDICARE, MEDICAID, SELFPAY | PROVIDERS: PCP Internal Medicine; Referring Provider Internal Medicine; Visit Provider Urology | DX: R31.29 Other microscopic hematuria (principal); R30.0 Dysuria | CPT/HCPCS: 81003; 99213 ==

== ENCOUNTER 2022-07-05 12:10 | Emergency (ER) | payer MEDICARE, MEDICAID, SELFPAY ==
[2022-07-05 12:15] VITALS: BP 132/70; PULSE 79; RESP 18; TEMP 36.7; O2SAT 98
--- NOTE | 2022-07-05 12:27 | ED.GENADUL_ITS ---
Discharge Plan Disposition Patient Disposition: HOME Condition: Stable Discharge Details Clinical Impression: Acute pain of left hip, Dysuria, Hematuria Primary Care Provider: Luigi Rae ED Provider: Lea Camara Home Meds and New Rx's Prescriptions: New tramadol 50 mg tablet 50 mg PO TID PRN (Reason: pain) Qty: 10 0RF Continued phenazopyridine [Pyridium] 200 mg tablet 200 mg PO Q8H PRN (Reason: pain) Qty: 15 0RF albuterol sulfate [ProAir HFA] 90 mcg/actuation HFA aerosol inhaler 2 puff inhalation Q6H PRN (Reason: shortness of breath or wheezing) Qty: 8.5 12RF Levemir FlexTouch U-100 Insuln 100 unit/mL (3 mL) insulin pen 18 unit subcut QHS polyethylene glycol 3350 17 gram powder in packet 17 g PO DAILY Qty: 30 5RF Rx Instructions: May increase to 2 x a day as needed nitroglycerin 0.4 MG tablet, sublingual 0.4 mg Sublingual PRN Qty: 1 (DME) lancets 1 EACH misc 1 ea Miscellaneous BID Qty: 100 Rx Instructions: FOR ONE TOUCH METER. NO INSULIN. DIAGNOSIS CODE E11.9 (DME) OneTouch Ultra Test 1 EACH strip 1 ea Miscellaneous BID Qty: 100 Rx Instructions: DX: DM--UNCONTROLLED FOR TESTING 2X/DAY OR DIRECTED TO MAINT A1C <7% aspirin 81 MG tablet,delayed release (DR/EC) 81 mg PO DAILY Qty: 90 3RF Rx Instructions: take one per day metoprolol tartrate 25 MG tablet 25 mg PO DAILY Qty: 90 3RF benzonatate [Tessalon Perles] 100 mg capsule 100 mg PO TID PRN oxycodone 5 mg tablet 5 mg PO Q6H MDD 4 PRN (Reason: pain) Qty: 20 0RF Ozempic 0.25 mg or 0.5 mg(2 mg/1.5 mL) pen injector 0.5 mg SUBCUT QWEEK Label Comments: INJECT 0.5MG SUBCUTANEOUSLY EVERY WEEK FOR 28 DAYS atorvastatin 80 mg tablet 80 mg PO DAILY Label Comments: TAKE 1 TABLET BY MOUTH ONCE DAILY FOR 90 DAYS Jardiance 10 mg tablet 10 tab PO DAILY Label Comments: TAKE 1 TABLET BY MOUTH IN THE MORNING FOR 90 DAYS Discharge Instructions Instructions: Hip Bursitis (ED), Hematuria (ED), Dysuria (ED), Hip Pain (ED) Additional Instructions: Your x-rays today are reassuring and show no evidence of acute concerning or significant findings. Your urine sample noted blood but no obvious evidence of infection. Please follow-up with your scheduled appointment with Dr. Finley tomorrow for further evaluation of your chronic pain and bleeding with urination. Limit excessive weightbearing, ambulating and standing on your left leg. Rest, ice, and elevate the affected area as much as possible. A prescription for tramadol has been sent electronically to your pharmacy to [facility] as needed and directed for pain control. Follow-up with your primary care doctor for reevaluation of your hip pain and for referral to orthopedics if your symptoms do not improve or worsen. Return immediately to the emergency department if you develop any worsening or new concerning symptoms. Referrals: Tomy Haynes MD [ [facility] STAFF PHYSICIAN] - Discharge Data Discharge Date/Time-TO BE ENTERED AT DEPARTURE: 07/05/22 16:41 Discharge Physician: Lea Camara Medical Decision Making 62-year-old male who is 2 weeks status post cystoscopy and bilateral retrograde urethrogram with transurethral biopsy of the prostatic urethra by Dr. Finley with negative pathology for a c/o dysuria and and microscopic hematuria presents for left hip pain this morning upon getting out of bed. He also complained of dysuria and hematuria since before and has been persistent after his procedure with Dr. Finley. Vitals within normal limits. Patient has reproducible pain with internal and external rotation of the right hip and localized tenderness overlying the left lateral hip. Suspect bursitis versus arthritis. Low suspicion for fracture as there is no obvious reported injury. History and presentation does not appear consistent with septic arthritis, cauda equina or kidney stone. Urinalysis obtained on arrival notes 5-10 WBCs and greater than 50 RBCs with rare bacteria, negative leukocyte esterase and negative nitrite. Patient referred for left hip and pelvis x-rays which were unremarkable. Case discussed with Dr. Finley who has no recommendations for antibiotics or other interventions at this time and will follow up with patient on his scheduled appointment tomorrow. Discussed with patient that his symptoms could be due to bursitis versus hip strain. As he cannot take NSAIDs or Tylenol, will treat with tramadol. He was given orthopedic follow-up information if needed. Discussed that cortisone injections may be recommended as part of his future treatment plan and he states he fell to the floor after one of those before. He was advised to follow-up with his primary care doctor for reevaluation, limit weightbearing and excessive ambulation including walking up hills and to apply ice to the area. Usual and customary return precautions given prior to discharge. Medical Records Medical records reviewed: Yes I reviewed the patient's medical records. Imaging Data Radiologic Study: Radiologist's impression: XR HIP LT COMPLETE ? AP PELVIS INDICATION:? left hip pain, r/o fracture/arthritis. COMPARISON:? CR LEFT HIP COMPLETE from 12/25/2009 TECHNIQUE:? 2D digital imaging was performed.? Three views. FINDINGS: Hip joint spaces are well maintained.? There is no evidence of fracture or dislo cation.? There are no significant degenerative changes.? SI joints and pubic symphysis are unremarkable.There are mild vascular calcifications. IMPRESSION: No evidence fracture or significant degenerative changes. Lab Data Lab results reviewed: Yes I reviewed the patient's lab results. Labs: 07/05/22 12:27 Urine - Reflex from Ua Urine Culture - Pending Laboratory Tests Range/Units 07/05/22 12:27 Urine Color (Yellow) Yellow Urine Clarity (Clear) Sl Cloudy Urine pH (5-8) 6.0 Ur Specific [place] (1.005-1.025) >= 1.030 H Urine Protein (Negative) mg/dL Negative Urine Ketones (Negative) mg/dL Negative Urine Blood (Negative) Large H Urine Nitrite (Negative) Negative Urine Bilirubin (Negative) Negative Urine Urobilinogen (Up TO 0.2) EU/dL 0.2 Ur Leukocyte Esterase (Negative) Negative Urine RBC (0-2) HPF >50 H Urine WBC (0-5) HPF 5-10 Ur Epithelial Cells (Negative) HPF Negative Urine Crystals (Negative) HPF Negative Urine Bacteria (Negative) HPF Rare Urine Casts (Negative) LPF Negative Urine Mucus (Negative) Negative Ur Culture Indicated? Yes Urine Glucose (Negative) mg/dL 500 H HPI General Mode of arrival: ambulatory . Date/Time Provider Initiated Documentation: 07/05/22 12:11 . Limitations to Documentation: no limitations . Information obtained by: patient . HPI Narrative: Patient is a 62-year-old male who is 2 weeks status post cystoscopy and bilateral retrograde urethrogram with transurethral biopsy of the prostatic urethra by Dr. Finley with negative pathology for a c/o dysuria and and microscopic hematuria presents for left hip pain this morning upon getting out of bed. Patient states he moves around frequently in bed and may have hit his head but denies any known specific injury or fall out of bed. Patient states he had no pain upon going to sleep last night. He states upon getting out of bed this morning he has significant left lateral hip pain. He states the pain is worse when moving from sitting to standing position or when walking, specifically he will. He denies any radiation of pain down his leg or around to his back. He cannot take Tylenol or ibuprofen due to GI issues. He recently finished his oxycodone he was given from Dr. Finley status post his recent procedure. He also admitted to persistent dysuria and hematuria since his procedures with Dr. Finley. He states he has a follow-up appoint with Dr. Finley tomorrow. He denies any fever, nausea, vomiting, abdominal pain or groin pain. Related Data Home Medications Medication Instructions Recorded Confirmed nitroglycerin 0.4 mg sublingual 0.4 mg sublingual PRN ##1 01/23/17 06/20/22 tablet lancets 28 gauge #100 ea 03/05/17 06/20/22 blood sugar diagnostic (OneTouch #100 strips 07/02/17 06/20/22 Ultra Test strips) aspirin 81 mg tablet,delayed 81 mg PO DAILY #90 tabs 09/03/17 07/05/22 release metoprolol tartrate 25 mg tablet 25 mg PO DAILY #90 tab-caps 09/03/17 07/05/22 semaglutide 0.25 mg or 0.5 mg (2 0.5 mg subcut QWEEK 06/06/21 07/05/22 mg/1.5 mL) subcutaneous pen injector (Ozempic) benzonatate 100 mg capsule 100 mg PO TID PRN 07/11/21 07/05/22 (Testika Beatty) insulin detemir U-100 100 unit/mL 18 unit subcut QHS 05/22/22 07/05/22 (3 mL) subcutaneous pen (Levemir FlexTouch U-100 Insulin) polyethylene glycol 3350 17 gram 17 g PO DAILY #30 ea 05/22/22 06/21/22 oral powder packet albuterol sulfate 90 mcg/actuation 2 puff inhalation Q6H PRN 06/12/22 06/21/22 aerosol inhaler (ProAir HFA) shortness of breath or wheezing #8.5 grams atorvastatin 80 mg tablet 80 mg PO DAILY 06/20/22 07/05/22 empagliflozin 10 mg tablet 10 tab PO DAILY 06/20/22 07/05/22 (Jardiance) phenazopyridine 200 mg tablet 200 mg PO Q8H PRN pain #15 tabs 06/22/22 06/22/22 (Pyridium) oxycodone 5 mg tablet 5 mg PO Q6H PRN pain #20 tabs 06/25/22 tramadol 50 mg tablet 50 mg PO TID PRN pain #10 tabs 07/05/22 Previous Rx's Medication Instructions Recorded aspirin 81 mg tablet,delayed 81 mg PO DAILY #90 tabs 09/03/17 release metoprolol tartrate 25 mg tablet 25 mg PO DAILY #90 tab-caps 09/03/17 polyethylene glycol 3350 17 gram 17 g PO DAILY #30 ea 05/22/22 oral powder packet albuterol sulfate 90 mcg/actuation 2 puff inhalation Q6H PRN 06/12/22 aerosol inhaler (ProAir HFA) shortness of breath or wheezing #8.5 grams phenazopyridine 200 mg tablet 200 mg PO Q8H PRN pain #15 tabs 06/22/22 (Pyridium) oxycodone 5 mg tablet 5 mg PO Q6H PRN pain #20 tabs 06/25/22 tramadol 50 mg tablet 50 mg PO TID PRN pain #10 tabs 07/05/22 Allergies Allergy/AdvReac Type Severity Reaction Status Date / Time nicotine [From Nicoderm CQ] Allergy Other (See Verified 07/05/22 12:19 Comment) Penicillins Allergy RASH Verified 07/05/22 12:19 lorazepam [From Ativan] AdvReac Severe SEVERE Verified 07/05/22 12:19 AGITATION varenicline [From Chantix] AdvReac Mild Headache Verified 07/05/22 12:19 acetaminophen [From Tylenol] AdvReac Unknown SICK TO Verified 07/05/22 12:19 STOMACH lactose AdvReac Unknown Verified 07/05/22 12:19 ibuprofen AdvReac Other (See Unverified 07/05/22 12:20 Comment) General Stated Complaint: Orthopedic SHAUN: 3 Review of Systems All systems reviewed & are unremarkable except as noted in HPI and below Constitutional Constitutional: Reports as per HPI, Denies chills, Denies excessive sweating, Denies fatigue and Denies fever(s) Eyes Eyes: Denies blurry vision ENT Ears, Nose, Mouth, and Throat: Denies dizziness, Denies sore throat and Denies throat swelling Cardiovascular Cardiovascular: Denies chest pain and Denies dyspnea Respiratory Respiratory: Denies cough and Denies dyspnea Gastrointestinal Gastrointestinal: Denies abdominal pain, Denies diarrhea and Denies vomiting Genitourinary Genitourinary: Reports hematuria and Reports dysuria Musculoskeletal Musculoskeletal: Denies back pain and Denies numbness Comments: L hip pain Integumentary/Breasts Skin/Breast: Denies lesions and Denies rash Neurologic Neurologic: Denies behavioral changes, Denies confusion, Denies dizziness, Denies localized weakness and Denies numbness Psychiatric Psychiatric: Denies behavioral changes, Denies confusion and Denies depression Endocrine Endocrine: Denies excessive sweating and Denies fatigue Hematologic/Lymphatic Hematologic/Lymphatic: Denies easy bruising and Denies lymphadenopathy Allergic/Immunologic Allergic/Immunologic: Denies throat swelling PFSH All Active Problems (Updated 07/05/22 @ 16:22 by Lea Camara DO) Acute pain of left hip (Acute) Dysuria (Acute) Hematuria (Acute) Dysuria (Acute) Aortocoronary bypass status (Acute 09/25/12) Cor athrscl-uns vessel (Acute 06/02/13) CABG 3v 09/15/12 [facility] cardiology PTCA 08-21-13 Organic sleep apnea, 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) Tobacco abuse disorder (Acute 03/27/16) Traumatic brain injury (Acute 01/05/14) Unable to control anger (Acute 01/05/14) Type II diabetes mellitus (Acute 01/05/14) Chest pain (Acute) Emphysema lung (Acute) Chronic bronchitis (Acute) Microscopic hematuria (Acute) Medical History (Updated 07/05/22 @ 16:22 by Lea Camara DO) Abdominal muscle strain Acid reflux Anxiety state (06/15/14) Monahan's esophagus (~09/2021) Constipation Coronary arteriosclerosis Cough Frequent urination Gastritis and duodenitis (~09/2021) GERD (gastroesophageal reflux disease) (05/20/15) History of anesthesia reaction Pt. states when he is waking up don't stand over him, because I come out swinging Hypertensive disorder Lipoma right hand. Lipoma of abdominal wall Myocardial infarct, old 2014-followed up with cardiology Dr. cMcall 08/2021 [facility] Nondependent alcohol abuse, in remission (09/25/12) Pure hypercholesterolemia (09/27/15) Reflux esophagitis (~09/2021) Sleep apnea TBI (traumatic brain injury) Transient cerebral ischemia 2019 Umbilical hernia Urinary incontinence Vertigo pt. denies this Surgical History Coronary Artery Bypass Grafting (09/01/12) Coronary Stent (08/21/13) [facility] Extraction of cataract (02/10/18) left eye cataract removal with intraocular lens implant. Dr Megloza H/O esophagogastroduodenoscopy 09/2021 H/O shoulder surgery History of breast biopsy left lipoma History of carotid endarterectomy History of carpal tunnel release History of colonoscopy History of nasal surgery History of removal of testicle (L) Hx of CABG Hx of melanoma excision Nuclear sclerotic cataract of right eye Posterior subcapsular age-related cataract, right eye Status post surgical removal of malignant neoplasm of skin (L) arm 5 location of melanoma removal Testicle removal, left Tonsillectomy and adenoidectomy (~1973) Family History Mother Essential hypertension Personal history of malignant neoplasm Heart disease Father Personal history of malignant neoplasm Heart disease Brother Substance abuse Social History Smoking/Tobacco Use Status: Current every day Tobacco Type: cigarettes Years smoked: 41 Smoking risk assessment performed?: Yes Alcohol Intake: never Drug use: Never Substance use type: does not use Do you feel safe at home: Yes Do you feel safe in your relationship?: Yes Exam Const General: cooperative and healthy appearing Orientation: alert, awake and oriented x3 HENMT Head: normal to inspection Ears: hearing grossly normal bilaterally and external ears normal General nose exam: external nose normal Face and sinus: normal facial exam Mouth: oral mucosae normal Eyes General: appearance normal, both eyes and all related structures Eyelids: eyelids normal EOM: EOM intact bilaterally Neck Neck: normal visual inspection Lymphatic: no lymphadenopathy noted Chest Chest: normal inspection of the chest Resp Effort & Inspection: normal respiratory effort and able to speak in complete sentences Auscultation: clear to auscultation bilaterally Cardio Rate: regular rate Rhythm: regular rhythm GI Inspection: normal to inspection Palpation: soft, not firm, no guarding, no hepatosplenomegaly, no masses and nontender Auscultation: normal bowel sounds Penis: normal penis Other: Left testicle absent post-surgical. Right testicle appears normal to inspection without edema, erythema or tenderness. Left groin normal to inspection and palpation. Skin General skin exam: no rashes or lesions noted Neuro General: patient alert and patient awake Cognition: normal cognition Speech: speech normal Gait: normal gait Motor: muscle tone normal throughout and strength 5/5 throughout Sensory Exam: no sensory deficits noted Extrem General: normal to inspection, full ROM and capillary refill normal Upper/lower leg/hip images: 1. Localized area of tenderness to the left lateral hip. Pain is reproducible with external greater than internal rotation of hips. There is no overlying erythema, edema, ecchymosis, rash or lesions. Other: Bilateral DP/PT pulses intact. Psych Appearance: grossly normal Mental Status: mental status grossly normal Speech and Movement: speech and movement normal Affect: normal affect Thought Process: normal Course Vital Signs Vital signs: Vital Signs Temperature 98.1 F 07/05/22 12:15 Pulse 79 07/05/22 12:15 Respiratory Rate 18 07/05/22 12:15 Blood Pressure 132/70 07/05/22 12:15 Pulse Oximetry 98 07/05/22 12:15 Temperature 98.1 F 07/05/22 12:15 Temperature Source Temporal Artery Scan 07/05/22 12:15 Pulse 79 07/05/22 12:15 Respiratory Rate 18 07/05/22 12:15 Respiratory Effort Non-Labored 07/05/22 12:23 Blood Pressure 132/70 07/05/22 12:15 Blood Pressure Position Sitting 07/05/22 12:15 Pulse Oximetry 98 07/05/22 12:15 Oxygen Delivery Method Room Air 07/05/22 12:15 Oxygen Flow Rate 0 07/05/22 12:15
[2022-07-05 12:45] LABS: Bilirubin Negative (Negative); Blood Large (Negative); Clarity Sl Cloudy (Clear); Glucose 500 mg/dL (Negative); Ketones Negative (Negative); Leukocyte Esterase Negative (Negative); Nitrite Negative (Negative); Specific Gravity >= 1.030 (1.005-1.025); Urobilinogen 0.2 EU/dL (Up TO 0.2)
[2022-07-05 12:55] LABS: Bacteria Rare HPF (Negative); C & S Indicated? Yes; Casts Negative LPF (Negative); Crystals Negative HPF (Negative); Epithelial Cells Negative HPF (Negative); Mucus Negative (Negative); RBC >50 HPF (0-2)
[2022-07-05] MEDS: traMADol 50 MG TAB PO (13:10)
--- NOTE | 2022-07-05 13:42 | DI.RAD_ITS ---
Exam(s) XR HIP LT COMPLETE AP PELVIS EXAM: XR HIP LT COMPLETE AP PELVIS INDICATION: left hip pain, r/o fracture/arthritis. COMPARISON: CR LEFT HIP COMPLETE from 12/25/2009 TECHNIQUE: 2D digital imaging was performed. Three views. FINDINGS: Hip joint spaces are well maintained. There is no evidence of fracture or dislocation. There are no significant degenerative changes. SI joints and pubic symphysis are unremarkable.There are mild vas cular calcifications. IMPRESSION: No evidence fracture or significant degenerative changes. DATA REPOSITORY: RADIATION DOSE DELIVERED:
[2022-07-05 16:33] VITALS: BP 142/91; PULSE 64; TEMP 36.3; O2SAT 97
== END 2022-07-05 16:41 | disposition home or self-care (01) ==
PROVIDERS: Emergency Provider Physician Assistant; PCP Internal Medicine
DX: M25.552 Pain in left hip (principal); R30.0 Dysuria; R31.29 Other microscopic hematuria; I25.2 Old myocardial infarction; F17.210 Nicotine dependence, cigarettes, uncomplicated; Z95.5 Presence of coronary angioplasty implant and graft; Z79.82 Long term (current) use of aspirin
CPT/HCPCS: 99283; 73502; 81003; 81015; 87086; 99284

== ENCOUNTER → 2022-07-06 14:36 | Outpatient (BNVA) | payer MEDICARE, MEDICAID, SELFPAY | PROVIDERS: PCP Internal Medicine; Referring Provider Internal Medicine; Visit Provider Urology | DX: R30.0 Dysuria (principal); N34.2 Other urethritis | CPT/HCPCS: 99213 ==

== ENCOUNTER → 2022-07-12 09:40 | Outpatient (BNVA) | payer MEDICARE, MEDICAID, SELFPAY | PROVIDERS: PCP Internal Medicine; Referring Provider Internal Medicine; Visit Provider Urology | DX: Z90.79 Acquired absence of other genital organ(s) (principal); R30.0 Dysuria | CPT/HCPCS: 81003; 99214 ==

== ENCOUNTER → 2022-08-03 09:58 | Outpatient (BNVA) | payer MEDICARE, MEDICAID, SELFPAY | PROVIDERS: PCP Internal Medicine; Referring Provider Internal Medicine; Visit Provider Urology | DX: R35.0 Frequency of micturition (principal); R10.2 Pelvic and perineal pain; R30.0 Dysuria | CPT/HCPCS: 81003; 99213 ==

== ENCOUNTER 2022-08-16 19:13 | Emergency (ER) | payer MEDICARE, MEDICAID, SELFPAY ==
--- NOTE | 2022-08-16 19:15 | DI.RAD_ITS ---
Exam(s) XR FOOT LT COMPLETE EXAM: XR FOOT LT COMPLETE CLINICAL HISTORY: R/O Fracture. TECHNIQUE: 2D digital imaging was performed. COMPARISON: CR,XR XR FOOT LT COMPLETE from 03/31/2022 FINDINGS: 3 views No evidence of fracture or diastasis of the Lisfranc joint. Mild degenerative changes in the great t oe metatarsophalangeal joint. No pes planus. Calcification noted in plantar fascia. Enthesophyte n oted posteriorly at the insertional aspect of the Achilles tendon. IMPRESSION: Mild findings as described above. DATA REPOSITORY: RADIATION DOSE DELIVERED:
--- NOTE | 2022-08-16 19:15 | DI.RAD_ITS ---
Exam(s) XR ANKLE LT COMPLETE EXAM: XR ANKLE LT COMPLETE CLINICAL HISTORY: Injury left ankle R/O Fracture. TECHNIQUE: 2D digital imaging was performed. COMPARISON: No exams were available for comparison FINDINGS: 3 views No evidence of fracture or widening of the ankle mortise. Talar dome unremarkable. Mild swelling ov er the medial malleolus but no malleolar fractures evident. Enthesophyte noted posteriorly at the in sertional aspect of the Achilles tendon on the posterior calcaneus. Calcification in the plantar fas ivan noted. IMPRESSION: No fractures. Other findings as above. No DATA REPOSITORY: RADIATION DOSE DELIVERED:
[2022-08-16 19:18] VITALS: BP 146/119; PULSE 74; RESP 16; TEMP 36.9; O2SAT 97
--- NOTE | 2022-08-16 19:28 | ED.GENADUL_ITS ---
Discharge Plan Disposition Patient Disposition: HOME Condition: Stable Discharge Details Clinical Impression: Left ankle sprain Primary Care Provider: Luigi Rae ED Provider: Katelyn Ring Home Meds and New Rx's Prescriptions: Continued albuterol sulfate [ProAir HFA] 90 mcg/actuation HFA aerosol inhaler 2 puff inhalation Q6H PRN (Reason: shortness of breath or wheezing) Qty: 8.5 12RF Levemir FlexTouch U-100 Insuln 100 unit/mL (3 mL) insulin pen 18 unit subcut QHS nitroglycerin 0.4 MG tablet, sublingual 0.4 mg Sublingual PRN Qty: 1 aspirin 81 MG tablet,delayed release (DR/EC) 81 mg PO DAILY Qty: 90 3RF Rx Instructions: take one per day metoprolol tartrate 25 MG tablet 25 mg PO DAILY Qty: 90 3RF atorvastatin 80 mg tablet 80 mg PO DAILY Label Comments: TAKE 1 TABLET BY MOUTH ONCE DAILY FOR 90 DAYS Jardiance 10 mg tablet 10 tab PO DAILY Label Comments: TAKE 1 TABLET BY MOUTH IN THE MORNING FOR 90 DAYS No Action polyethylene glycol 3350 17 gram powder in packet 17 g PO DAILY Qty: 30 5RF Rx Instructions: May increase to 2 x a day as needed hyoscyamine sulfate 0.125 mg tablet 0.125 mg PO QID PRN (Reason: urgency) Qty: 90 0RF (DME) lancets 1 EACH misc 1 ea Miscellaneous BID Qty: 100 Rx Instructions: FOR ONE TOUCH METER. NO INSULIN. DIAGNOSIS CODE E11.9 (DME) OneTouch Ultra Test 1 EACH strip 1 ea Miscellaneous BID Qty: 100 Rx Instructions: DX: DM--UNCONTROLLED FOR TESTING 2X/DAY OR DIRECTED TO MAINT A1C <7% Ozempic 0.25 mg or 0.5 mg(2 mg/1.5 mL) pen injector 0.5 mg SUBCUT QWEEK Label Comments: INJECT 0.5MG SUBCUTANEOUSLY EVERY WEEK FOR 28 DAYS Discharge Instructions Instructions: Ankle Sprain (ED) Additional Instructions: There is no evidence of broken bones or fractures on the x-ray today. Do suspect the tore a ligament or sprained your ankle. Rest ice compression elevation. Wear the walking boot as needed for comfort. If continued pain please follow-up with orthopedics or your primary care provider. Referrals: Luigi Rae [Primary Care Provider] - 1 week Medical Decision Making 62-year-old male presents with a chief complaint of left foot and ankle pain status post inversion type injury while stepping out of a truck just prior to arrival. Patient states he was getting out of his truck stepped on a curb and rolled his ankle. He reports feeling a pop and has increased pain with weightbearing. Tenderness noted to the left lateral malleolus and left lateral foot. XR ordered. No acute fracture or dislocation noted. Patient placed in a short walking boot and instructed on home care. He was agreeable to Tylenol prior to his discharge which was ordered. Discussed home care follow-up and strict return instructions. This text was generated using [employer] dictation system, please disregard any oddities of phrase or misspellings. HPI General Mode of arrival: ambulatory . Date/Time Provider Initiated Documentation: 08/16/22 19:14 . Limitations to Documentation: no limitations . Information obtained by: patient, RN notes reviewed and old records reviewed . HPI Narrative: 62-year-old male presents with a chief complaint of left foot and ankle pain status post inversion type injury while stepping out of a truck just prior to arrival. Patient states he was getting out of his truck stepped on a curb and rolled his ankle. He reports feeling a pop and has increased pain with weightbearing. Tenderness noted to the left lateral malleolus and left lateral foot. he did not take any medications prior to arrival due to patient reports that he gets upset stomach with Tylenol or ibuprofen. He does have a past medical history of traumatic brain injury, type 2 diabetes, tobacco use, sleep apnea and coronary artery disease. Other past medical history also includes Monahan esophagus, GERD and [place]. Related Data Home Medications Medication Instructions Recorded Confirmed nitroglycerin 0.4 mg sublingual 0.4 mg sublingual PRN ##1 01/23/17 08/16/22 tablet lancets 28 gauge #100 ea 03/05/17 08/03/22 blood sugar diagnostic (OneTouch #100 strips 07/02/17 08/03/22 Ultra Test strips) aspirin 81 mg tablet,delayed 81 mg PO DAILY #90 tabs 09/03/17 08/16/22 release metoprolol tartrate 25 mg tablet 25 mg PO DAILY #90 tab-caps 09/03/17 08/16/22 semaglutide 0.25 mg or 0.5 mg (2 0.5 mg subcut QWEEK 06/06/21 08/16/22 mg/1.5 mL) subcutaneous pen injector (Ozempic) insulin detemir U-100 100 unit/mL 18 unit subcut QHS 05/22/22 08/16/22 (3 mL) subcutaneous pen (Levemir FlexTouch U-100 Insulin) polyethylene glycol 3350 17 gram 17 g PO DAILY #30 ea 05/22/22 08/16/22 oral powder packet albuterol sulfate 90 mcg/actuation 2 puff inhalation Q6H PRN 06/12/22 08/16/22 aerosol inhaler (ProAir HFA) shortness of breath or wheezing #8.5 grams atorvastatin 80 mg tablet 80 mg PO DAILY 06/20/22 08/16/22 empagliflozin 10 mg tablet 10 tab PO DAILY 06/20/22 08/16/22 (Jardiance) hyoscyamine sulfate 0.125 mg tablet 0.125 mg PO QID PRN urgency #90 08/03/22 08/03/22 tabs Previous Rx's Medication Instructions Recorded aspirin 81 mg tablet,delayed 81 mg PO DAILY #90 tabs 09/03/17 release metoprolol tartrate 25 mg tablet 25 mg PO DAILY #90 tab-caps 09/03/17 polyethylene glycol 3350 17 gram 17 g PO DAILY #30 ea 05/22/22 oral powder packet albuterol sulfate 90 mcg/actuation 2 puff inhalation Q6H PRN 06/12/22 aerosol inhaler (ProAir HFA) shortness of breath or wheezing #8.5 grams hyoscyamine sulfate 0.125 mg tablet 0.125 mg PO QID PRN urgency #90 08/03/22 tabs Allergies Allergy/AdvReac Type Severity Reaction Status Date / Time nicotine [From Nicoderm CQ] Allergy Other (See Verified 08/16/22 19:21 Comment) Penicillins Allergy RASH Verified 08/16/22 19:21 lorazepam [From Ativan] AdvReac Severe SEVERE Verified 08/16/22 19:21 AGITATION varenicline [From Chantix] AdvReac Mild Headache Verified 08/16/22 19:21 acetaminophen [From Tylenol] AdvReac Unknown SICK TO Verified 08/16/22 19:21 STOMACH lactose AdvReac Unknown Verified 08/16/22 19:21 ibuprofen AdvReac Other (See Unverified 08/16/22 19:21 Comment) General Stated Complaint: Orthopedic SHAUN: 4 Review of Systems Musculoskeletal Musculoskeletal: Reports as per HPI, Reports arthralgias and Reports joint swelling PFSH All Active Problems (Updated 08/16/22 @ 20:51 by Katelyn Ring NP) Left ankle sprain (Acute) Pelvic pain (Acute) Aortocoronary bypass status (Acute 09/25/12) Cor athrscl-uns vessel (Acute 06/02/13) CABG 3v 09/15/12 [facility] cardiology PTCA 08-21-13 Organic sleep apnea, 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) Tobacco abuse disorder (Acute 03/27/16) Traumatic brain injury (Acute 01/05/14) Unable to control anger (Acute 01/05/14) Type II diabetes mellitus (Acute 01/05/14) Chest pain (Acute) Emphysema lung (Acute) Chronic bronchitis (Acute) Medical History Abdominal muscle strain Acid reflux Anxiety state (06/15/14) Monahan's esophagus (~09/2021) Constipation Coronary arteriosclerosis Cough Frequent urination Gastritis and duodenitis (~09/2021) GERD (gastroesophageal reflux disease) (05/20/15) History of anesthesia reaction Pt. states when he is waking up don't stand over him, because I come out swinging Hypertensive disorder Lipoma right hand. Lipoma of abdominal wall Myocardial infarct, old 2014-followed up with cardiology Dr. Mccall 08/2021 [facility] Cardiology Nondependent alcohol abuse, in remission (09/25/12) Pure hypercholesterolemia (09/27/15) Reflux esophagitis (~09/2021) Sleep apnea TBI (traumatic brain injury) Transient cerebral ischemia 2019 Umbilical hernia Urinary incontinence Vertigo pt. denies this Surgical History Coronary Artery Bypass Grafting (09/01/12) Coronary Stent (08/21/13) [facility] Extraction of cataract (02/10/18) left eye cataract removal with intraocular lens implant. Dr Melgoza H/O esophagogastroduodenoscopy 09/2021 H/O shoulder surgery History of breast biopsy left lipoma History of carotid endarterectomy History of carpal tunnel release History of colonoscopy History of nasal surgery History of removal of testicle (L) Hx of CABG Hx of melanoma excision Nuclear sclerotic cataract of right eye Posterior subcapsular age-related cataract, right eye Status post surgical removal of malignant neoplasm of skin (L) arm 5 location of melanoma removal Testicle removal, left Tonsillectomy and adenoidectomy (~1973) Family History Mother Essential hypertension Personal history of malignant neoplasm Heart disease Father Personal history of malignant neoplasm Heart disease Brother Substance abuse Social History Smoking/Tobacco Use Status: Current every day Tobacco Type: cigarettes Years smoked: 41 Smoking risk assessment performed?: Yes Alcohol Intake: never Drug use: Never Substance use type: does not use Do you feel safe at home: Yes Do you feel safe in your relationship?: Yes Exam Extrem General: normal to inspection and capillary refill normal Left lower extremity: ankle Details: tenderness Location: of the lateral malleolus and anterolaterally and swelling Details: laterally and foot Course Vital Signs Vital signs: Vital Signs Temperature 36.9 C 08/16/22 19:18 Pulse 74 08/16/22 19:18 Respiratory Rate 16 08/16/22 19:18 Blood Pressure 146/119 H 08/16/22 19:18 Pulse Oximetry 97 08/16/22 19:18 Temperature 36.9 C 08/16/22 19:18 Pulse 74 08/16/22 19:18 Respiratory Rate 16 08/16/22 19:18 Respiratory Effort Non-Labored 08/16/22 19:23 Blood Pressure 146/119 H 08/16/22 19:18 Pulse Oximetry 97 08/16/22 19:18 Pain Level 7 08/16/22 19:18
--- NOTE | 2022-08-16 20:42 | DI.VRAD_ITS ---
PROCEDURE INFORMATION: Exam: XR Left Foot Exam date and time: 08/16/2022 8:05 PM Age: 62 years old Clinical indication: Injury or trauma; Fall; Blunt trauma; Ankle and foot; Left; Injury date: 08/16/22; Injury details: Injury, R/O FX TECHNIQUE: Imaging protocol: Radiologic exam of the Left foot. Views: 3 or more views. COMPARISON: CR XR FOOT LT COMPLETE 03/31/2022 5:47 PM FINDINGS: Bones/joints: No suspicious osseous lytic or blastic lesion. No acute fracture or dislocation. Soft tissues: No focal abnormality. IMPRESSION: No acute fracture or dislocation. Dictated and Authenticated by: Sky Beal MD. Ordering:WILLIAM Zepeda MD
--- NOTE | 2022-08-16 20:42 | DI.VRAD_ITS ---
PROCEDURE INFORMATION: Exam: XR Left Ankle Exam date and time: 08/16/2022 8:06 PM Age: 62 years old Clinical indication: Injury or trauma; Fall; Blunt trauma; Ankle; Left; Injury date: 08/16/22; Injury details: Injury, R/O FX TECHNIQUE: Imaging protocol: Radiologic exam of the Left ankle. Views: 3 or more views. COMPARISON: CR XR FOOT LT COMPLETE 08/16/2022 8:05 PM FINDINGS: Bones/joints: No suspicious osseous lytic or blastic lesion. No acute fracture or dislocation. Ankle mortise is preserved. Soft tissues: Normal. IMPRESSION: No acute fracture or dislocation. Dictated and Authenticated by: Sky Beal MD. Ordering:WILLIAM Zepeda MD
[2022-08-16] MEDS: Acetaminophen 325 MG TAB 650 MG PO (21:17)
== END 2022-08-16 21:24 | disposition home or self-care (01) ==
PROVIDERS: Emergency Provider Registered Nurse Emergency; PCP Internal Medicine
DX: S93.402A Sprain of unspecified ligament of left ankle, initial encounter (principal); I25.2 Old myocardial infarction; F17.210 Nicotine dependence, cigarettes, uncomplicated; Z79.82 Long term (current) use of aspirin; Z86.73 Personal history of transient ischemic attack (TIA), and cerebral infarction without residual deficits; Z95.5 Presence of coronary angioplasty implant and graft; X50.1XXA Overexertion from prolonged static or awkward postures, initial encounter
CPT/HCPCS: 99283; 73610; 73630; 99282